=== PATIENT | male | born 1950 | race Caucasian/White ===

== ENCOUNTER 2018-09-18 14:13 | Inpatient (IN) | payer MEDICARE, OTHER ==
[2018-09-18 15:55] LABS: Hematocrit 39.8 % (42-50); Mean Cell Volume 106.7 fl (78-100); Mean Corpuscular Hemoglobin 37.5 pg (26-32); Mean Corpuscular Hgb Concent. 35.2 g/dl (32-36); Platelet Count 180 K/mm3 (150-450); Red Blood Count 3.73 M/mm3 (4.1-5.6); Red Cell Distribution Width 13.2 % (11.5-14.0); White Blood Count 7.4 K/mm3 (4.0-10.5)
[2018-09-18 16:03] LABS: INR 0.95 (0.8-3.0); PROTIME 10.7 SECONDS (8.83-12.87)
[2018-09-18 16:08] LABS: ALBUMIN 3.9 g/dL (3.5-5.0); ALKALINE PHOSPHATASE 111 U/L (38-126); ANION GAP 10.5 MEQ/L (5-15); BLOOD UREA NITROGEN 6 mg/dL (9-20); CHLORIDE 107 mmol/L (98-107); Calcium 9.4 mg/dL (8.4-10.2); Carbon Dioxide 24 mmol/L (22-30); Direct Bilirubin 0.3 mg/dL (0.0-0.4); Glucose 85 mg/dL (74-106); Potassium 3.9 mmol/L (3.5-5.1); SGOT/AST 28 U/L (17-59); SGPT/ALT 25 U/L (0-50); SODIUM 137 mmol/L (137-145); Total Protein 6.8 g/dL (6.3-8.2)
--- NOTE | 2018-09-18 16:18 | XRAY ---
Indication: Left leg weakness. Possible CVA. Multiple contiguous axial images obtained through the head without contrast. Comparison: None Age-appropriate global atrophy. No acute intracranial hemorrhage, abnormal extra-axial fluid collection, or mass effect. Fourth ventricle is midline without hydrocephalus. Cross-white matter differentiation preserved. Bony calvarium intact. Minimal opacification left ethmoid sinus. Remaining visualized paranasal sinuses and mastoid air cells are clear. Impression: 1. Minimal left ethmoid sinus disease. 2. Remaining CT head without contrast exam is negative. Follow-up CT or MRI may yield further information if there remains further clinical concern. CTDI 67.41
--- NOTE | 2018-09-18 16:20 | XRAY ---
Indication: Left leg weakness. Possible CVA. Comparison: None Portable chest demonstrates what appears to be a large focal eventration of the right hemidiaphragm which could be confirmed with lateral view chest or CT. Remaining heart and lungs normal. Bony thorax intact with old left 6-7 rib fractures.
[2018-09-18] MEDS ORDERED: Sodium Chloride 0.9% 1000 ML 1,000 ML IV SCH (16:45)
[2018-09-18] MEDS ORDERED: MEDICATION INTERVENTION MC SCH (17:15)
[2018-09-18] MEDS: Sodium Chloride 0.9% 1000 ML 1,000 ML IV SCH (17:23)
[2018-09-18 20:16] LABS: Appearance CLEAR (CLEAR); Bilirubin NEGATIVE (NEGATIVE); Blood NEGATIVE Ery/ul (0-5); Glucose NEGATIVE (NEGATIVE); Ketones NEGATIVE (NEGATIVE); Leukocyte Esterase NEGATIVE (NEGATIVE); Nitrite NEGATIVE (NEGATIVE); Protein,Urine Dip NEGATIVE (Negative); Specific Gravity 1.006 (1.005-1.025); Urobilinogen 4 mg/dL (0-1)
[2018-09-18] MEDS ORDERED: Neurontin 100 MG PO SCH (22:00)
[2018-09-18] MEDS: ISOPTIN S.R. 240 MG PO SCH (22:43)
[2018-09-18] MEDS: MOTRIN 400 MG PO SCH (22:43)
[2018-09-18] MEDS: Ambien 10 MG PO SCH (22:43)
[2018-09-18] MEDS: NEURONTIN 300 MG PO SCH (22:44)
[2018-09-18] MEDS: Klonopin 0.5 MG PO PRN (22:48)
[2018-09-19 05:14] LABS: BASOPHIL % 0.7 % (0.0-0.4); Basophil (Absolute #) 0.04 (0-0.4); Eosinophil % 2.1 % (0.00-5.0); Eosinophil (Absolute #) 0.12 (0-0.5); Granulocyte Absolute (ANC) 2.87 (1.4-6.9); Hemoglobin 14.3 gm/dl (12.5-18.0); Lymphocyte (Absolute #) 2.05 (1.0-4.6); Lymphocytes % 36.3 % (24.0-44.0); Mean Cell Volume 106.3 fl (78-100); Mean Corpuscular Hgb Concent. 36.7 g/dl (32-36); Mean Platelet Volume 10.1 fl (6-9.5); Monocyte (Absolute #) 0.56 (0.0-1.3); Monocytes % 9.9 % (0.0-12.0); Platelet Count 177 K/mm3 (150-450); Red Blood Count 3.67 M/mm3 (4.1-5.6); Red Cell Distribution Width 13.4 % (11.5-14.0); White Blood Count 5.6 K/mm3 (4.0-10.5)
[2018-09-19 05:20] LABS: Mean Corpuscular Hemoglobin 38.9 pg (26-32)
[2018-09-19 05:33] LABS: ALBUMIN 3.8 g/dL (3.5-5.0); ALKALINE PHOSPHATASE 109 U/L (38-126); ANION GAP 10.3 MEQ/L (5-15); BLOOD UREA NITROGEN 7 mg/dL (9-20); CHLORIDE 108 mmol/L (98-107); Calcium 9.3 mg/dL (8.4-10.2); Carbon Dioxide 26 mmol/L (22-30); Cholesterol 178 mg/dL (50-200); Creatinine 1 0.68 mg/dL (0.66-1.25); Glucose 94 mg/dL (74-106); HDL CHOLESTEROL 34 mg/dL (40-60); LDL, DIRECT 125 mg/dL (30-100); Potassium 3.6 mmol/L (3.5-5.1); Risk Ratio 5.2; SGOT/AST 24 U/L (17-59); SGPT/ALT 24 U/L (0-50); SODIUM 140 mmol/L (137-145); TRIGLYCERIDE 126 mg/dL (30-150); TROPONIN < 0.012 ng/mL (0.000-0.034); Total Protein 6.7 g/dL (6.3-8.2)
[2018-09-19 08:54] LABS: Slide Review 1 YES
[2018-09-19] MEDS: Protonix 40MG Tablet PO SCH (09:13)
[2018-09-19] MEDS: Mavik 2 MG PO SCH (09:13)
[2018-09-19] MEDS: ECOTRIN 81 MG PO SCH (09:13)
[2018-09-19] MEDS: MOTRIN 400 MG PO SCH ×3 (09:14→21:40)
[2018-09-19] MEDS: NEURONTIN 300 MG PO SCH ×3 (09:14→21:40)
[2018-09-19] MEDS ORDERED: BABY ASPIRIN 81 MG CHEW PO SCH (10:00)
[2018-09-19] MEDS ORDERED: TRANDOLAPRIL 4 MG PO SCH (10:00)
--- NOTE | 2018-09-19 11:54 | PCM.NOTE ---
Date and Time: 09/19/18 1152 Subjective Assessment: still weakness on left side of leg - Review of Systems Constitutional: No Fever, No Chills Eyes: No Symptoms Ears, Nose, & Throat: No Symptoms Respiratory: No Cough, No Short Of Breath Cardiac: No Chest Pain, No Edema, No Syncope Abdominal/Gastrointestinal: No Abdominal Pain, No Nausea, No Vomiting, No Diarrhea Genitourinary Symptoms: No Dysuria Musculoskeletal: No Back Pain, No Neck Pain Skin: No Rash Neurological: Gait Changes, No Dizziness, No Focal Weakness, No Sensory Changes Psychological: No Symptoms Endocrine: No Symptoms Hematologic/Lymphatic: No Symptoms Immunological/Allergic: No Symptoms Objective Exam General Appearance: no apparent distress, alert Neurologic Exam: alert, oriented x 3, cooperative, motor deficits, motor weakness, facial droop Skin Exam: normal color, warm, dry Wound Assessment: Skin/Wound Assessment Wound/Incision Assessment Start: 09/18/18 15: 53 Text: Status: Active Freq: Q6H Protocol: Document 09/19/18 08:00 CL (Rec: 09/19/18 09:44 CL [id number]) Wound/Incision Assessment Left Elbow Wound Assessment Admission Wound Type Abrasion Wound Stage Non Pressure Wound Drainage Amount None Drainage Odor None/Absent General Appearance Open to air Wound Bed Greatest Portion Red (Granulation) Wound Bed Lesser Portion Red (Granulation) Surrounding Tissue Dark Red Comment Diameter of wound measures 3 cm. Wound Photo Photo Taken Yes Date: 09/18/18 Time: 18:33 Distance from Wound: 8 inches Comment: photo placed on chart Eye Exam: PERRL, EOMI, eyes nml inspection Ears, Nose, Throat Exam: normal ENT inspection, pharynx normal, moist mucous membranes Neck Exam: normal inspection, non-tender, supple, full range of motion Respiratory Exam: normal breath sounds, lungs clear, No respiratory distress Cardiovascular Exam: regular rate/rhythm, normal heart sounds Gastrointestinal/Abdomen Exam: soft, No tenderness, No mass Extremity Exam: normal inspection, normal range of motion Back Exam: normal inspection, normal range of motion, No CVA tenderness, No vertebral tenderness Male Genitalia Exam: deferred Rectal Exam: deferred OBJECTIVE DATA Vital Signs: Vital Signs - 24 hr Temp Pulse Resp BP Pulse Ox 09/19/18 10:41 96 09/19/18 07:19 97.6 F 68 20 110/57 100 09/19/18 04:00 98.2 F 68 18 124/61 93 L 09/19/18 00:00 97.8 F 71 16 125/74 95 09/18/18 20:38 91 L 09/18/18 20:00 98.3 F 69 16 100/54 94 L 09/18/18 16:33 96 09/18/18 15:19 98.4 F 86 22 135/72 96 09/18/18 14:55 98.4 F 86 22 135/72 96 09/18/18 14:34 98.4 F 86 22 135/72 96 Pain Assessment - Last Documented Pain Intensity 7 Pain Scale Used 0-10 Pain Scale Intake and Output: Intake & Output 09/16/18 09/17/18 09/18/18 09/19/18 11:59 11:59 11:59 11:59 Intake Total 2059 Output Total 2160 Balance -101 Weight 93.5 kg Lab Results: Lab Results-Last 24 Hours 09/18/18 09/18/18 09/18/18 Range/Units 15:52 15:52 15:52 WBC 7.4 (4.0-10.5) K/mm3 RBC 3.73 L (4.1-5.6) M/mm3 Hgb 14.0 (12.5-18.0) gm/dl Hct 39.8 L (42-50) % MCV 106.7 H (78-100) fl MCH 37.5 H (26-32) pg MCHC 35.2 (32-36) g/dl RDW 13.2 (11.5-14.0) % Plt Count 180 (150-450) K/mm3 MPV 10.0 H (6-9.5) fl Gran % (36.0-66.0) % Eos # (Auto) (0-0.5) Absolute Lymphs (auto) (1.0-4.6) Absolute Monos (auto) (0.0-1.3) Lymphocytes % (24.0-44.0) % Monocytes % (0.0-12.0) % Eosinophils % (0.00-5.0) % Basophils % (0.0-0.4) % Absolute Granulocytes (1.4-6.9) Basophils # (0-0.4) PT 10.7 (8.83-12.87) SECONDS INR 0.95 (0.8-3.0) Sodium 137 (137-145) mmol/L Potassium 3.9 (3.5-5.1) mmol/L Chloride 107 (98-107) mmol/L Carbon Dioxide 24 (22-30) mmol/L Anion Gap 10.5 (5-15) MEQ/L BUN 6 L (9-20) mg/dL Creatinine 0.60 L (0.66-1.25) mg/dL Estimated GFR > 60.0 ML/MIN Glucose 85 (74-106) mg/dL Calcium 9.4 (8.4-10.2) mg/dL Total Bilirubin 0.60 (0.2-1.3) mg/dL Direct Bilirubin 0.3 (0.0-0.4) mg/dL AST 28 (17-59) U/L ALT 25 (0-50) U/L Alkaline Phosphatase 111 (38-126) U/L Troponin I (0.000-0.034) ng/mL Serum Total Protein 6.8 (6.3-8.2) g/dL Albumin 3.9 (3.5-5.0) g/dL Triglycerides (30-150) mg/dL Cholesterol (50-200) mg/dL LDL Cholesterol (30-100) mg/dL HDL Cholesterol (40-60) mg/dL Heart Disease Risk Ratio Urine Color (YELLOW) Urine Appearance (CLEAR) Urine pH (5-6) Ur Specific [place] (1.005-1.025) Urine Protein (Negative) Urine Ketones (NEGATIVE) Urine Blood (0-5) [place]/ul Urine Nitrite (NEGATIVE) Urine Bilirubin (NEGATIVE) Urine Urobilinogen (0-1) mg/dL Ur Leukocyte Esterase (NEGATIVE) Urine WBC (Auto) (0-5) /HPF Urine RBC (Auto) (0-2) /HPF U Epithel Cells (Auto) (FEW) /HPF Urine Bacteria (Auto) (NEGATIVE) /HPF Urine Glucose (NEGATIVE) mg/dL Slides for Path Review 09/18/18 09/19/18 09/19/18 Range/Units 19:10 05:07 05:07 WBC 5.6 (4.0-10.5) K/mm3 RBC 3.67 L (4.1-5.6) M/mm3 Hgb 14.3 (12.5-18.0) gm/dl Hct 39.0 L (42-50) % MCV 106.3 H (78-100) fl MCH 38.9 H (26-32) pg MCHC 36.7 H (32-36) g/dl RDW 13.4 (11.5-14.0) % Plt Count 177 (150-450) K/mm3 MPV 10.1 H (6-9.5) fl Gran % 51.0 (36.0-66.0) % Eos # (Auto) 0.12 (0-0.5) Absolute Lymphs (auto) 2.05 (1.0-4.6) Absolute Monos (auto) 0.56 (0.0-1.3) Lymphocytes % 36.3 (24.0-44.0) % Monocytes % 9.9 (0.0-12.0) % Eosinophils % 2.1 (0.00-5.0) % Basophils % 0.7 (0.0-0.4) % Absolute Granulocytes 2.87 (1.4-6.9) Basophils # 0.04 (0-0.4) PT (8.83-12.87) SECONDS INR (0.8-3.0) Sodium 140 (137-145) mmol/L Potassium 3.6 (3.5-5.1) mmol/L Chloride 108 H (98-107) mmol/L Carbon Dioxide 26 (22-30) mmol/L Anion Gap 10.3 (5-15) MEQ/L BUN 7 L (9-20) mg/dL Creatinine 0.68 (0.66-1.25) mg/dL Estimated GFR > 60.0 ML/MIN Glucose 94 (74-106) mg/dL Calcium 9.3 (8.4-10.2) mg/dL Total Bilirubin 0.50 (0.2-1.3) mg/dL Direct Bilirubin (0.0-0.4) mg/dL AST 24 (17-59) U/L ALT 24 (0-50) U/L Alkaline Phosphatase 109 (38-126) U/L Troponin I < 0.012 (0.000-0.034) ng/mL Serum Total Protein 6.7 (6.3-8.2) g/dL Albumin 3.8 (3.5-5.0) g/dL Triglycerides 126 (30-150) mg/dL Cholesterol 178 (50-200) mg/dL LDL Cholesterol 125 H (30-100) mg/dL HDL Cholesterol 34 L (40-60) mg/dL Heart Disease Risk Ratio 5.2 Urine Color YELLOW (YELLOW) Urine Appearance CLEAR (CLEAR) Urine pH 6.0 (5-6) Ur Specific [place] 1.006 (1.005-1.025) Urine Protein NEGATIVE (Negative) Urine Ketones NEGATIVE (NEGATIVE) Urine Blood NEGATIVE (0-5) [place]/ul Urine Nitrite NEGATIVE (NEGATIVE) Urine Bilirubin NEGATIVE (NEGATIVE) Urine Urobilinogen 4 (0-1) mg/dL Ur Leukocyte Esterase NEGATIVE (NEGATIVE) Urine WBC (Auto) NONE (0-5) /HPF Urine RBC (Auto) NONE (0-2) /HPF U Epithel Cells (Auto) NONE (FEW) /HPF Urine Bacteria (Auto) NONE (NEGATIVE) /HPF Urine Glucose NEGATIVE (NEGATIVE) mg/dL Slides for Path Review YES Radiology Exams: Radiology Procedures Category Date Time Status CHEST 1 VIEW (PORTABLE) Urgent Exams 09/18/18 15:40 Completed HEAD WITHOUT CONTRAST [CT] Urgent Exams 09/18/18 15:36 Completed Assessment/Plan (1) Left-sided weakness Current Visit: Yes Status: Acute Code(s): R53.1 - WEAKNESS (2) COPD (chronic obstructive pulmonary disease) Current Visit: Yes Status: Chronic Qualifiers: Emphysema type: unspecified (3) HTN (hypertension) Current Visit: Yes Status: Chronic Qualifiers: Hypertension type: essential hypertension Qualified Code(s): I10 - Essential (primary) hypertension Code(s): I10 - ESSENTIAL (PRIMARY) HYPERTENSION (4) CAD (coronary artery disease) Current Visit: Yes Status: Acute Qualifiers: Coronary Disease-Associated Artery/Lesion type: [place] artery [place] vs. transplanted heart: [place] heart Associated angina: without angina Qualified Code(s): I25.10 - Atherosclerotic heart disease of [place] coronary artery without angina pectoris Code(s): I25.10 - ATHSCL HEART DISEASE OF [place] CORONARY ARTERY W/O ANG PCTRS (5) Stroke Current Visit: Yes Status: Acute Code(s): I63.9 - CEREBRAL INFARCTION, UNSPECIFIED
[2018-09-19] MEDS: Sodium Chloride 0.9% 1000 ML 1,000 ML IV SCH (13:21)
[2018-09-19] MEDS: Nicoderm CQ 21 MG TOP SCH (17:12)
[2018-09-19] MEDS: Cyclobenzaprine 10 MG PO SCH (21:39)
[2018-09-19] MEDS: PATIENT OWN MEDICATION PO SCH (21:40)
[2018-09-19] MEDS: Ambien 10 MG PO SCH (21:40)
[2018-09-19] MEDS: ISOPTIN S.R. 240 MG PO SCH (21:41)
[2018-09-20] MEDS: Mavik 2 MG PO SCH (08:30)
[2018-09-20] MEDS: Protonix 40MG Tablet PO SCH (08:30)
[2018-09-20] MEDS: ECOTRIN 81 MG PO SCH (08:30)
[2018-09-20] MEDS: MOTRIN 400 MG PO SCH ×3 (08:30→21:43)
[2018-09-20] MEDS: Cyclobenzaprine 10 MG PO SCH ×3 (08:30→21:44)
[2018-09-20] MEDS: NEURONTIN 300 MG PO SCH ×3 (08:31→21:44)
[2018-09-20] MEDS: PATIENT OWN MEDICATION PO SCH ×2 (08:31→21:44)
[2018-09-20] MEDS: Sodium Chloride 0.9% 1000 ML 1,000 ML IV SCH (09:42)
--- NOTE | 2018-09-20 11:38 | PCM.NOTE ---
Date and Time: 09/20/18 1133 Subjective Assessment: Pt thinks weakness on the L leg is improving somewhat. His BP have been 96-160/ 57-82. He would like his R elbow wrapped, he got a laceration/abrasion when he fell in his driveway. - Review of Systems Constitutional: No Fever Neurological: Other (unilateral weakness) Objective Exam General Appearance: no apparent distress, alert Neurologic Exam: oriented x 3, cooperative, other (RLE 5/5 dorsiflexion, LLE 4/ 5 dorsiflexion. Bilat 5/5 plantar flexion.) Skin Exam: normal color, warm, dry, No rash Wound Assessment: Skin/Wound Assessment Wound/Incision Assessment Start: 09/18/18 15: 53 Text: Status: Active Freq: Q6H Protocol: Document 09/20/18 08:00 CL (Rec: 09/20/18 09:01 CL [id number]) Wound/Incision Assessment Left Elbow Wound Assessment Shift Assessment Wound Type Abrasion Wound Stage Non Pressure Wound Drainage Amount None Drainage Odor None/Absent General Appearance Open to air Wound Bed Greatest Portion Red (Granulation) Wound Bed Lesser Portion Red (Granulation) Surrounding Tissue Dark Red Comment Diameter of wound measures 3 cm. Wound Photo Photo Taken Yes Date: 09/18/18 Time: 18:33 Distance from Wound: 8 inches Comment: photo placed on chart Eye Exam: eyes nml inspection Ears, Nose, Throat Exam: moist mucous membranes Respiratory Exam: normal breath sounds, lungs clear, No crackles/rales, No rhonchi, No wheezing Cardiovascular Exam: regular rate/rhythm, normal heart sounds, No murmur Gastrointestinal/Abdomen Exam: soft, normal bowel sounds, No tenderness Extremity Exam: other (R elbow with approx 2x3cm defect, no erythema/exudate/ induration) OBJECTIVE DATA Vital Signs: Vital Signs - 24 hr Temp Pulse Resp BP Pulse Ox 09/20/18 07:30 97.2 F 53 L 20 149/70 98 09/20/18 07:10 96 09/20/18 04:00 97.8 F 52 L 16 137/79 95 09/20/18 00:00 97.6 F 46 L 16 134/61 98 09/19/18 20:37 94 L 09/19/18 20:00 97.9 F 52 L 18 96/56 96 09/19/18 16:53 98 F 63 20 160/82 96 09/19/18 12:00 97.6 F 68 110/57 96 Pain Assessment - Last Documented Pain Intensity 4 Pain Scale Used 0-10 Pain Scale Intake and Output: Intake & Output 09/17/18 09/18/18 09/19/18 09/20/18 11:59 11:59 11:59 11:59 Intake Total 2059 1856 Output Total 2160 3725 Balance -101 -1869 Weight 93.5 kg Radiology Exams: Radiology Procedures Category Date Time Status CHEST 1 VIEW (PORTABLE) Urgent Exams 09/18/18 15:40 Completed HEAD WITHOUT CONTRAST [CT] Urgent Exams 09/18/18 15:36 Completed Multi-Disciplinary Progress Notes: Multi-Disciplinary Progress Notes 09/19/18 13:35 Case Management Note by Amira Lemon PAPERWORK COMPLETE AND PLACED ON CHART. REFERRAL CALLED TO [facility], SPOKE WITH [facility]. [facility] REPORTS THAT THEY WILL CALL BACK WITH BED AVAILABILITY. Initialized on 09/19/18 13:35 - END OF NOTE Assessment/Plan (1) Left-sided weakness Current Visit: Yes Status: Acute Assessment & Plan: He is being discharged to LTCF tomorrow. Stable. Code(s): R53.1 - WEAKNESS (2) CAD (coronary artery disease) Current Visit: Yes Status: Acute Qualifiers: Coronary Disease-Associated Artery/Lesion type: [place] artery [place] vs. transplanted heart: [place] heart Associated angina: without angina Qualified Code(s): I25.10 - Atherosclerotic heart disease of [place] coronary artery without angina pectoris Code(s): I25.10 - ATHSCL HEART DISEASE OF [place] CORONARY ARTERY W/O ANG PCTRS (3) Stroke Current Visit: Yes Status: Acute Code(s): I63.9 - CEREBRAL INFARCTION, UNSPECIFIED (4) COPD (chronic obstructive pulmonary disease) Current Visit: Yes Status: Chronic Qualifiers: Emphysema type: unspecified (5) HTN (hypertension) Current Visit: Yes Status: Chronic Qualifiers: Hypertension type: essential hypertension Qualified Code(s): I10 - Essential (primary) hypertension Assessment & Plan: labile; will continue to observe. Code(s): I10 - ESSENTIAL (PRIMARY) HYPERTENSION (6) Abrasion, elbow w/o infection Current Visit: Yes Status: Acute Assessment & Plan: abx cream and wrap Code(s): S50.319A - ABRASION OF UNSPECIFIED ELBOW, INITIAL ENCOUNTER
[2018-09-20] MEDS ORDERED: Triple Antibiotic Ointment TP PRN (15:30)
[2018-09-20] MEDS: Nicoderm CQ 21 MG TOP SCH (16:43)
[2018-09-20] MEDS: Ambien 10 MG PO SCH (21:44)
[2018-09-20] MEDS: ISOPTIN S.R. 240 MG PO SCH (21:44)
[2018-09-21] MEDS: Klonopin 0.5 MG PO PRN (03:18)
[2018-09-21] MEDS: Protonix 40MG Tablet PO SCH (09:33)
[2018-09-21] MEDS: PATIENT OWN MEDICATION PO SCH (09:33)
[2018-09-21] MEDS: NEURONTIN 300 MG PO SCH (09:33)
[2018-09-21] MEDS: MOTRIN 400 MG PO SCH (09:33)
[2018-09-21] MEDS: Mavik 2 MG PO SCH (09:33)
[2018-09-21] MEDS: ECOTRIN 81 MG PO SCH (09:33)
[2018-09-21] MEDS: Cyclobenzaprine 10 MG PO SCH (09:34)
[2018-09-21 11:57] VITALS: BP 171/77; PULSE 53; O2SAT 95
--- NOTE | 2018-09-21 12:46 | PCM.DS ---
Discharge Summary Date of Admission: 09/18/18 14:34 Admitting Physician: DIMAS TINEO Consults: Consults on Case 09/18/18 16:41 Consult Neurology ROUTINE Primary Care Provider: DIMAS TINEO Allergies Allergies No Known Drug Allergies Allergy (Unverified 09/18/18 19:42) Hospital Summary - Hospital Course Hospital Course: Pt is a 68 yo male pt with CAD, hx CVA, COPD, and HTN who was directly admitted by Dr. Tineo for L sided weakness. He has improved somewhat but is going to [facility] today for therapy. On admission his CMP was unremarkable. Chol 178, HDL 34, LDL 125. He had 1 troponin on day #[address] head without acute changes. CXR showed what appeared to be a large focal eventration of the R hemidiaphragm and old L 6 -7 rib fx. His only complaints today are his chronic neck and lower back pain. - Vitals & Intake/Output Vital Signs: Vital Signs Temperature 98.4 F 09/21/18 11:56 Pulse Rate 53 L 09/21/18 11:56 Respiratory Rate 18 09/21/18 11:56 Blood Pressure 171/77 09/21/18 11:56 O2 Sat by Pulse Oximetry 95 09/21/18 11:56 Intake & Output: Intake & Output 09/19/18 09/20/18 09/21/18 09/22/18 11:59 11:59 11:59 11:59 Intake Total 2059 1856 3770 Output Total 2160 3725 5450 Balance -177 -7965 -9968 Weight 93.5 kg - Lab Result Diagrams: 09/19/18 05:07 09/19/18 05:07 - Procedures and Test Procedures and Tests throughout Hospitalization: Therapy Orders & Screens 09/18/18 15:36 EKG ROUTINE Comment: Diagnosis: CVA, L SIDED WEAKNESS Oxygen Nasal Cannula 2 lpm Comment: Diagnosis: CVA, L SIDED WEAKNESS Discharge Exam General Appearance: no apparent distress (sitting up on edge of bed), alert Neurologic Exam: oriented x 3, cooperative Eye Exam: eyes nml inspection Ears, Nose, Throat Exam: moist mucous membranes Neck Exam: normal inspection Respiratory Exam: normal breath sounds, lungs clear, No crackles/rales, No rhonchi, No wheezing Cardiovascular Exam: regular rate/rhythm, normal heart sounds, No murmur Gastrointestinal/Abdomen Exam: soft, normal bowel sounds, No tenderness, No distention, No mass, No guarding, No rebound Extremity Exam: normal inspection, No pedal edema, No swelling Skin Exam: normal color, warm, dry, No rash Wound Assessment: Skin/Wound Assessment Wound/Incision Assessment Start: 09/18/18 15: 53 Text: Status: Active Freq: Q6H Protocol: Document 09/21/18 08:00 CL (Rec: 09/21/18 08:06 CL [id number]) Wound/Incision Assessment Left Elbow Wound Assessment Shift Assessment Wound Type Abrasion Wound Stage Non Pressure Wound Drainage Amount None Drainage Odor None/Absent General Appearance Open to air Wound Bed Greatest Portion Red (Granulation) Wound Bed Lesser Portion Red (Granulation) Surrounding Tissue Dark Red Comment Diameter of wound measures 3 cm. Wound Photo Photo Taken Yes Date: 09/18/18 Time: 18:33 Distance from Wound: 8 inches Comment: photo placed on chart Final Diagnosis/Problem List - Final Discharge Diagnosis/Problem (1) Left-sided weakness Current Visit: Yes Status: Acute Assessment & Plan: mild improvements, still showing some deficit per my exam yesterday ( dorsiflexion). To [facility] for therapy. Dr. Tineo doesn't delineate in his note but I imagine he was suspecting a CVA affecting the strength in the L leg. Code(s): R53.1 - WEAKNESS (2) CAD (coronary artery disease) Current Visit: Yes Status: Chronic Code(s): I25.10 - ATHSCL HEART DISEASE OF [place] CORONARY ARTERY W/O ANG PCTRS (3) Stroke Current Visit: Yes Status: Chronic Code(s): I63.9 - CEREBRAL INFARCTION, UNSPECIFIED (4) COPD (chronic obstructive pulmonary disease) Current Visit: Yes Status: Chronic (5) HTN (hypertension) Current Visit: Yes Status: Chronic Assessment & Plan: BP have been labile; in the last 24h from 110-168 systolic/54-90. Code(s): I10 - ESSENTIAL (PRIMARY) HYPERTENSION (6) Abrasion, elbow w/o infection Current Visit: Yes Status: Acute Assessment & Plan: hurt in a fall prior to admission. started dressing it yesterday. Code(s): S50.319A - ABRASION OF UNSPECIFIED ELBOW, INITIAL ENCOUNTER - Discharge Disposition: DC TO [facility] Condition: Stable Prescriptions: New Neomycin/Bacitracin/Polymyxinb [Antibiotic Ointment] 28 gm TP BID #1 oint...g. Cyclobenzaprine HCl 10 mg [Cyclobenzaprine 10 MG] 5 mg PO TID tablet Nicotine 21 mg [Nicoderm CQ 21 MG] 21 mg TOP Q24H patch Continue Zolpidem Tartrate 10 mg PO QHS Verapamil HCl [Verapamil ER] 240 mg PO QHS Trandolapril 4 mg PO DAILY Omeprazole 20 mg PO DAILY Ibuprofen 800 mg PO TID Gabapentin 300 mg PO TID Duloxetine HCl 20 mg PO BID Clonazepam 0.5 mg [Klonopin 0.5 MG] 0.5 mg PO TID PRN Aspirin 81 gm Chew [Baby Aspirin 81 mg Chew] 81 mg PO DAILY Follow up with: DIMAS TINEO MD [Primary Care Provider] - 1 Week
== END 2018-09-21 13:55 | DRG 69 ==
LOC: MED SURG 14:34
PROVIDERS: ADMIT General Practice; ATTEND General Practice
DX: I67.89 Other cerebrovascular disease (principal); R53.1 Weakness; I10 Essential (primary) hypertension; J44.9 Chronic obstructive pulmonary disease, unspecified; I25.10 Atherosclerotic heart disease of native coronary artery without angina pectoris; S50.312A Abrasion of left elbow, initial encounter; E78.5 Hyperlipidemia, unspecified; R29.6 Repeated falls; M79.605 Pain in left leg; G89.29 Other chronic pain; M54.5 Low back pain; M54.2 Cervicalgia; E03.9 Hypothyroidism, unspecified; W19.XXXA Unspecified fall, initial encounter; Y93.9 Activity, unspecified; Y92.008 Other place in unspecified non-institutional (private) residence as the place of occurrence of the external cause; Z79.899 Other long term (current) drug therapy
CPT/HCPCS: 36415; 70450; 71045; 80048; 80053; 80061; 80076; 81001; 83721; 84484; 85025; 85027; 85610; 93005; 94760; 94762; Q3014; A9270-GY

== ENCOUNTER 2018-10-22 12:29 | Emergency (ER) | payer MEDICARE, OTHER ==
[2018-10-22] MEDS ORDERED: MORPHINE SULFATE 4 MG INJ IV ONE (12:46)
--- NOTE | 2018-10-22 12:49 | ERPHSYRPT ---
- History of Present Illness Time Seen by Provider: 10/22/18 12:40 Source: patient, family Exam Limitations: no limitations Physician History: Patient was admitted to the hospital and placed in a snf facility last month. He went home two weeks ago and has had increasing falls over the past two days. He did improve some with the PT he received at the snf facility. Timing/Duration: week(s) (1) Severity: moderate Character of Deficits: general (difuse) Deficits: falling, decrease ability to walk Baseline/Normal Cognition: alert oriented x 3 Current Cognition: alert oriented x 3 Baseline Gait: uses cane, uses walker Associated Symptoms: trouble walking (patient has had problems with strength in his left leg at least one month), No confusion, No fatigue, No fever, No chills , No loss of consciousness, No nausea, No vomiting, No weakness, No insomnia, No muscle spasms, No numbness/tingling in legs/feet, No paresthesia, No seizures , No slurred speech, No vision changes, No chest pain, No headache Allergies/Adverse Reactions: No Known Drug Allergies Allergy (Verified 10/22/18 13:07) Home Medications: Clonazepam 0.5 mg [Klonopin 0.5 MG] 0.5 mg PO TID PRN 09/18/18 [History] Gabapentin 300 mg PO TID 09/18/18 [History] Ibuprofen 800 mg PO TID 09/18/18 [History] Omeprazole 20 mg PO DAILY 09/18/18 [History] Trandolapril 4 mg PO DAILY 09/18/18 [History] Verapamil HCl [Verapamil ER] 240 mg PO QHS 09/18/18 [History] Zolpidem Tartrate 10 mg PO QHS 09/18/18 [History] - Review of Systems Constitutional: Weakness, No Fever, No Chills Eyes: No Photophobia, No Vision Changes Ears, Nose, & Throat: No Nose Congestion, No Throat Pain, No Throat Swelling, No Hoarse Respiratory: No Cough, No Dyspnea, No Dyspnea on Exertion (COOK) Cardiac: No Chest Pain, No Edema, No Syncope Abdominal/Gastrointestinal: No Abdominal Pain, No Nausea, No Vomiting, No Diarrhea, No Hematemesis, No Hematochezia, No Melena Genitourinary Symptoms: No Dysuria, No Hematuria, No Flank Pain Musculoskeletal: Neck Pain (causing him severe pain over the past two days), No Back Pain Skin: No Rash Neurological: No Dizziness, No Focal Weakness, No Headache, No Sensory Changes, No Tremors Psychological: No Symptoms Endocrine: No Symptoms All Other Systems: Reviewed and Negative - Past Medical History Neurological History: Stroke (one month ago with left leg weakness) ENT History: Cataracts Cardiac History: Hypertension Respiratory History: Bronchitis, COPD Endocrine Medical History: No Pertinent History Musculoskeletal History: Degenerative Disk Disease, Fractures, Osteoarthritis GI Medical History: No Pertinent History History: Other Psycho-Social History: Anxiety, Depression Male Reproductive Disorders: No Pertinent History Other Medical History: overactive bladder, functional incontinence; R arm fracture about 55 years ago - Past Surgical History Past Surgical History: Yes Neuro Surgical History: No Pertinent History Cardiac: No Pertinent History Respiratory: No Pertinent History Gastrointestinal: No Pertinent History Genitourinary: No Pertinent History Musculoskeletal: Other Male Surgical History: No Pertinent History Other Surgical History: Lumbar surgery 1999, 2 cysts removed from back - Social History Smoking Status: Current every day smoker How long have you smoked: 25 years Exposure to second hand smoke: Yes Drug Use: none - Nursing Vital Signs Nursing Vital Signs: Initial Vital Signs Temperature 98.4 F 10/22/18 12:39 Pulse Rate 72 10/22/18 12:39 Respiratory Rate 16 10/22/18 12:39 Blood Pressure 113/68 10/22/18 12:39 O2 Sat by Pulse Oximetry 96 10/22/18 12:39 Pain Scale Pain Intensity 6 - [place] Coma Scale Best Eye Response (Rafiq): (4) open spontaneously Best Verbal Response (Rafiq): (5) oriented Best Motor Response ([place]): (6) obeys commands [place] Total: 15 - Physical Exam General Appearance: no apparent distress, alert Eye Exam: bilateral eye: PERRL, EOMI Ears, Nose, Throat Exam: normal ENT inspection, moist mucous membranes Neck Exam: normal inspection, non-tender, supple Respiratory: normal breath sounds, lungs clear, airway intact, No respiratory distress Cardiovascular: regular rate/rhythm, normal heart sounds, normal peripheral pulses, capillary refill <2 sec, No edema Gastrointestinal: soft, normal bowel sounds, No tenderness, No distention, No rebound, No hernia Back Exam: normal inspection, No CVA tenderness, No vertebral tenderness Extremity Exam: normal inspection, No pedal edema Mental Status: alert, oriented x 3 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 Exam: normal hearing, normal speech, PERRL, tongue midline Coordination/Gait: normal finger to nose, normal cerebellar function, No ABN nose to finger (R), No ABN nose to finger (L) Motor/Sensory: no motor deficit, no sensory deficit Skin Exam: normal color, warm, dry, No rash - Course Nursing assessment & vital signs reviewed: Yes EKG Interpreted by Me: RATE (70), NORMAL AXIS, NORMAL INTERVALS, NORMAL QRS, NORMAL ST-T, Other (negative for any changes from 09/18/2018) - Radiology Exams Chest X-ray Interpretation: No Pneumonia, No Pneumothorax, Nml Alignment, Other (pper radiologist interpretation: No infiltrates to suggest focal pneumonia or other cardiopulmonary disease is seen.mild mid thoracic dextroscoliosis is seen. Degenerative changes are seen throughout the thoracic spine. Moderate focal eventration/elevation of the torso right hemidiaphragm resenting no change.) C-Spine X-ray Interpretation: No Fracture (per radiologist interpretation: No traumatic subluxation or acute cervical spine fracture; 2.5 mm anterior subluxation of C3 over C4 and 2 mm anterior subluxation of C4 over C5 her likely degenerative in nature. Degenerative osteoarthritic changes are seen within the cervical spine. Mild curvature in the midcervical spine toward the right on the AP image , consider spasm.), Other Ordered Tests: Active Orders 24 hr Category Date Time Status Analytics Leader STAT Care 10/22/18 12:45 Active EKG-ER Only STAT Care 10/22/18 13:50 Active IV Insertion STAT Care 10/22/18 12:45 Active Pulse Oximetry (ED) STAT Care 10/22/18 12:45 Active CERVICAL SPINE (2 OR 3 VIEW) Stat Exams 10/22/18 12:46 Completed CHEST 1 VIEW (PORTABLE) Stat Exams 10/22/18 12:45 Completed BLOOD CULTURE Stat Lab 10/22/18 14:00 Received CBC W DIFF Stat Lab 10/22/18 13:45 Completed CMP Stat Lab 10/22/18 13:45 Completed CULTURE,URINE Stat Lab 10/22/18 Received Lactic Acid Stat Lab 10/22/18 13:45 Completed PROTIME WITH INR Stat Lab 10/22/18 13:45 Completed PTT Stat Lab 10/22/18 13:45 Completed TROPONIN Q3H Lab 10/22/18 14:00 Completed TROPONIN Q3H Lab 10/22/18 17:00 Ordered TROPONIN Q3H Lab 10/22/18 20:00 Ordered TROPONIN Q3H Lab 10/22/18 23:00 Ordered TROPONIN Q3H Lab 10/23/18 02:00 Ordered Urinalysis with Microscopy Stat Lab 10/22/18 14:05 Completed VENOUS BLOOD GAS Urgent Lab 10/22/18 13:50 Completed Medication Summary Discontinued Medications Generic Name Dose Route Start Last Admin Trade Name Lewis PRN Reason Stop Dose Admin Morphine Sulfate 4 mg 10/22/18 12:46 10/22/18 13:48 Morphine Sulfate 4 Mg Inj IV 10/22/18 12:47 4 mg STAT ONE Administration Morphine Sulfate Confirm 10/22/18 13:43 Morphine Sulfate 4 Mg Inj Administered 10/22/18 13:44 Dose 4 mg .ROUTE .STiPosi-MED ONE Lab/Rad Data: Laboratory Result Diagrams 10/22/18 13:45 10/22/18 13:45 Laboratory Results 10/22/18 10/22/18 10/22/18 Range/Units 14:05 14:00 13:50 WBC (4.0-10.5) K/mm3 RBC (4.1-5.6) M/mm3 Hgb (12.5-18.0) gm/dl Hct (42-50) % MCV (78-100) fl MCH (26-32) pg MCHC (32-36) g/dl RDW (11.5-14.0) % Plt Count (150-450) K/mm3 MPV (6-9.5) fl Gran % (36.0-66.0) % Eos # (Auto) (0-0.5) Absolute Lymphs (auto) (1.0-4.6) Absolute Monos (auto) (0.0-1.3) Lymphocytes % (24.0-44.0) % Monocytes % (0.0-12.0) % Eosinophils % (0.00-5.0) % Basophils % (0.0-0.4) % Absolute Granulocytes (1.4-6.9) Basophils # (0-0.4) PT (8.83-12.87) SECONDS INR (0.8-3.0) APTT (24.1-36.1) SECONDS pO2/FiO2 Ratio 21.0 % VBG pH 7.41 (7.32-7.42) VBG pCO2 at Pat Temp 40 L (42-55) mm/Hg VBG pO2 at Pat Temp 24 L (25-40) mm/Hg VBG HCO3 25.4 (22-28) meq/L VBG O2 Sat ([place]) 53.3 L (95-100) VBG Base Excess 0.7 (-2.0-2.0) VBG Hemoglobin 14.3 VBG Carboxyhemoglobin 4.8 (0.0-6.9) % T HGB POC Potassium 3.9 (3.5-5.1) Sodium (137-145) mmol/L Potassium (3.5-5.1) mmol/L Chloride (98-107) mmol/L Carbon Dioxide (22-30) mmol/L Anion Gap (5-15) MEQ/L BUN (9-20) mg/dL Creatinine (0.66-1.25) mg/dL Estimated GFR ML/MIN Glucose (74-106) mg/dL Lactic Acid (0.4-2.0) Calcium (8.4-10.2) mg/dL Total Bilirubin (0.2-1.3) mg/dL AST (17-59) U/L ALT (0-50) U/L Alkaline Phosphatase (38-126) U/L Troponin I < 0.012 (0.000-0.034) ng/mL Serum Total Protein (6.3-8.2) g/dL Albumin (3.5-5.0) g/dL Urine Color YELLOW (YELLOW) Urine Appearance CLEAR (CLEAR) Urine pH 6.0 (5-6) Ur Specific [place] 1.008 (1.005-1.025) Urine Protein NEGATIVE (Negative) Urine Ketones NEGATIVE (NEGATIVE) Urine Blood NEGATIVE (0-5) Benito/ul Urine Nitrite NEGATIVE (NEGATIVE) Urine Bilirubin NEGATIVE (NEGATIVE) Urine Urobilinogen 2 (0-1) mg/dL Ur Leukocyte Esterase NEGATIVE (NEGATIVE) Urine WBC (Auto) NONE (0-5) /HPF Urine RBC (Auto) NONE (0-2) /HPF U Epithel Cells (Auto) NONE (FEW) /HPF Urine Bacteria (Auto) NONE (NEGATIVE) /HPF Urine Mucus (Auto) SLIGHT (NEGATIVE) /HPF Urine Glucose NEGATIVE (NEGATIVE) mg/dL 10/22/18 10/22/18 10/22/18 Range/Units 13:45 13:45 13:45 WBC 12.5 H (4.0-10.5) K/mm3 RBC 3.67 L (4.1-5.6) M/mm3 Hgb 13.4 (12.5-18.0) gm/dl Hct 39.5 L (42-50) % MCV 107.6 H (78-100) fl MCH 36.5 H (26-32) pg MCHC 33.9 (32-36) g/dl RDW 12.6 (11.5-14.0) % Plt Count 160 (150-450) K/mm3 MPV 9.8 H (6-9.5) fl Gran % 83.2 H (36.0-66.0) % Eos # (Auto) 0.04 (0-0.5) Absolute Lymphs (auto) 1.08 (1.0-4.6) Absolute Monos (auto) 0.94 (0.0-1.3) Lymphocytes % 8.6 L (24.0-44.0) % Monocytes % 7.5 (0.0-12.0) % Eosinophils % 0.3 (0.00-5.0) % Basophils % 0.4 (0.0-0.4) % Absolute Granulocytes 10.40 H (1.4-6.9) Basophils # 0.05 (0-0.4) PT 11.7 (8.83-12.87) SECONDS INR 1.03 (0.8-3.0) APTT 27.8 (24.1-36.1) SECONDS pO2/FiO2 Ratio % VBG pH (7.32-7.42) VBG pCO2 at Pat Temp (42-55) mm/Hg VBG pO2 at Pat Temp (25-40) mm/Hg VBG HCO3 (22-28) meq/L VBG O2 Sat ([place]) (95-100) VBG Base Excess (-2.0-2.0) VBG Hemoglobin VBG Carboxyhemoglobin (0.0-6.9) % T HGB POC Potassium (3.5-5.1) Sodium 137 (137-145) mmol/L Potassium 4.0 (3.5-5.1) mmol/L Chloride 103 (98-107) mmol/L Carbon Dioxide 26 (22-30) mmol/L Anion Gap 12.5 (5-15) MEQ/L BUN 9 (9-20) mg/dL Creatinine 0.70 (0.66-1.25) mg/dL Estimated GFR > 60.0 ML/MIN Glucose 116 H (74-106) mg/dL Lactic Acid (0.4-2.0) Calcium 9.2 (8.4-10.2) mg/dL Total Bilirubin 0.70 (0.2-1.3) mg/dL AST 19 (17-59) U/L ALT 18 (0-50) U/L Alkaline Phosphatase 114 (38-126) U/L Troponin I (0.000-0.034) ng/mL Serum Total Protein 7.3 (6.3-8.2) g/dL Albumin 4.1 (3.5-5.0) g/dL Urine Color (YELLOW) Urine Appearance (CLEAR) Urine pH (5-6) Ur Specific [place] (1.005-1.025) Urine Protein (Negative) Urine Ketones (NEGATIVE) Urine Blood (0-5) Benito/ul Urine Nitrite (NEGATIVE) Urine Bilirubin (NEGATIVE) Urine Urobilinogen (0-1) mg/dL Ur Leukocyte Esterase (NEGATIVE) Urine WBC (Auto) (0-5) /HPF Urine RBC (Auto) (0-2) /HPF U Epithel Cells (Auto) (FEW) /HPF Urine Bacteria (Auto) (NEGATIVE) /HPF Urine Mucus (Auto) (NEGATIVE) /HPF Urine Glucose (NEGATIVE) mg/dL 10/22/18 Range/Units 13:45 WBC (4.0-10.5) K/mm3 RBC (4.1-5.6) M/mm3 Hgb (12.5-18.0) gm/dl Hct (42-50) % MCV (78-100) fl MCH (26-32) pg MCHC (32-36) g/dl RDW (11.5-14.0) % Plt Count (150-450) K/mm3 MPV (6-9.5) fl Gran % (36.0-66.0) % Eos # (Auto) (0-0.5) Absolute Lymphs (auto) (1.0-4.6) Absolute Monos (auto) (0.0-1.3) Lymphocytes % (24.0-44.0) % Monocytes % (0.0-12.0) % Eosinophils % (0.00-5.0) % Basophils % (0.0-0.4) % Absolute Granulocytes (1.4-6.9) Basophils # (0-0.4) PT (8.83-12.87) SECONDS INR (0.8-3.0) APTT (24.1-36.1) SECONDS pO2/FiO2 Ratio % VBG pH (7.32-7.42) VBG pCO2 at Pat Temp (42-55) mm/Hg VBG pO2 at Pat Temp (25-40) mm/Hg VBG HCO3 (22-28) meq/L VBG O2 Sat ([place]) (95-100) VBG Base Excess (-2.0-2.0) VBG Hemoglobin VBG Carboxyhemoglobin (0.0-6.9) % T HGB POC Potassium (3.5-5.1) Sodium (137-145) mmol/L Potassium (3.5-5.1) mmol/L Chloride (98-107) mmol/L Carbon Dioxide (22-30) mmol/L Anion Gap (5-15) MEQ/L BUN (9-20) mg/dL Creatinine (0.66-1.25) mg/dL Estimated GFR ML/MIN Glucose (74-106) mg/dL Lactic Acid 1.0 (0.4-2.0) Calcium (8.4-10.2) mg/dL Total Bilirubin (0.2-1.3) mg/dL AST (17-59) U/L ALT (0-50) U/L Alkaline Phosphatase (38-126) U/L Troponin I (0.000-0.034) ng/mL Serum Total Protein (6.3-8.2) g/dL Albumin (3.5-5.0) g/dL Urine Color (YELLOW) Urine Appearance (CLEAR) Urine pH (5-6) Ur Specific [place] (1.005-1.025) Urine Protein (Negative) Urine Ketones (NEGATIVE) Urine Blood (0-5) Benito/ul Urine Nitrite (NEGATIVE) Urine Bilirubin (NEGATIVE) Urine Urobilinogen (0-1) mg/dL Ur Leukocyte Esterase (NEGATIVE) Urine WBC (Auto) (0-5) /HPF Urine RBC (Auto) (0-2) /HPF U Epithel Cells (Auto) (FEW) /HPF Urine Bacteria (Auto) (NEGATIVE) /HPF Urine Mucus (Auto) (NEGATIVE) /HPF Urine Glucose (NEGATIVE) mg/dL - Progress Progress: unchanged Progress Note: 10/22/18 15:[address] Tineo, patient's physician about patient's presentation and lab and x-ray results. Due to patient's insurance coverage, patient has not had any coverage for his CVA from last month in regards to his hospital visit and snf facility visit. Dr Tineo states patient is not a candidate for inpatient admission, but recommended Keron Lemon to come and speak to the patient and what home services the patient may qualify. 10/22/18 15:07 Spoke with Keron Lemon RN, Lodging Facilities Attendant. Keron will come and speak with the patient to see what coverage can be added to help the patient at home since he is not a candidate for inpatient or SNF payment coverage due to his insurance. Keron will come and evaluate the patient for his services he may qualify at home as an outpatient. 10/22/18 15:17 Patient's pain has improved. No focal neurologic deficits that are new or any other acute complaints 10/22/18 15:18 Keron Lemon RN spoke with the patient. Patient is doing outpatient PT close to his home and is staying with a friend who is with him at all times. Patient' s son is working again on getting him another inpatient stint. Keron states patient also has a history of drinking alcohol which may be contributing to his falls. 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 Follow up with your physician to continue monitoring your symptoms. Return immediately back to the emergency department if any focal weakness, loss of sensation, speech change, headache, bilateral leg symptoms, or any other concerning signs or symptoms that was not present to the emergency department visit for immediate reevaluation in the emergency department.
[2018-10-22] MEDS ORDERED: MORPHINE SULFATE 4 MG INJ ONE (13:43)
--- NOTE | 2018-10-22 13:46 | XRAY ---
Exam: AP portable chest film from 10/22/2018. Comparison: AP portable chest film from 09/18/2018. Indication: Sepsis, falls. Findings: The heart size is normal. The misbah and mediastinal structures appear unremarkable. There is moderate focal eventration/elevation of a portion of the right hemidiaphragm representing no change. The lungs are otherwise well expanded. No air space infiltrates, vascular congestion, pneumothorax, or pleural fluid is seen. Mild mid thoracic dextroscoliosis is seen. Degenerative changes are seen throughout the thoracic spine. An old left seventh rib fracture deformity is seen posterior laterally. Impression: 1. No infiltrates to suggest focal pneumonia or other acute cardiopulmonary disease is seen. 2. Other incidental findings, as described above, stable.
[2018-10-22 14:02] LABS: VBG BASE EXCESS 0.7 (-2.0-2.0); VBG CARBOXYHEMOGLOBIN 4.8 % T HGB (0.0-6.9); VBG HCO3- 25.4 meq/L (22-28); VBG HEMOGLOBIN 14.3; VBG O2 SATURATION 53.3 (95-100); VBG POTASSIUM 3.9 (3.5-5.1); VBG pH 7.41 (7.32-7.42)
--- NOTE | 2018-10-22 14:03 | XRAY ---
Exam: 3 view cervical spine series from 10/22/2018. Comparison: None. Indication: Neck pain, headache, dizziness. Findings: AP, open-mouth odontoid, lateral, and a lateral swimmer's view of the cervical spine were obtained. There is only visualization down to the upper aspect of C6 on the initial lateral image. C6 and C7 can be seen on the lateral swimmer's view, but fine bony detail is not seen. I see no acute cervical spine fracture. There is about 2.5 mm anterior subluxation of C3 over C4 and 2 mm anterior subluxation of C4 over C5. This is most likely due to degenerative changes, as no fracture is seen. I note moderate to marked anterior vertebral endplate spurring throughout the entire cervical spine. Consider diffuse idiopathic skeletal hyperostosis. There is minimal narrowing of the C5-C6 interspace height and mild to moderate narrowing of the C6-C7 interspace height. The AP view reveals mild convexity of the mid cervical spine toward the right centered at C4. Correlate clinically regarding spasm. The C1-C2 relationship appears unremarkable. No cervical ribs are seen. Some degenerative changes are seen within the lower cervical uncovertebral joints. No focal bone destruction is seen. Many of the patient's molar teeth are missing. Impression: 1. The study is mildly limited in the lateral projection, as discussed above. 2. However, I see no acute cervical spine fracture or AP traumatic subluxation. 3. 2.5 mm anterior subluxation of C3 over C4 and 2 mm anterior subluxation of C4 over C5 are likely degenerative in nature. 4. Degenerative osteoarthritic changes are seen within the cervical spine, as discussed above. DISH cannot be excluded. 5. Mild convexity of the mid cervical spine toward the right on the AP image. Consider spasm.
[2018-10-22 14:10] LABS: BASOPHIL % 0.4 % (0.0-0.4); Basophil (Absolute #) 0.05 (0-0.4); Eosinophil % 0.3 % (0.00-5.0); Eosinophil (Absolute #) 0.04 (0-0.5); Granulocytes % 83.2 % (36.0-66.0); Hematocrit 39.5 % (42-50); Hemoglobin 13.4 gm/dl (12.5-18.0); Lymphocyte (Absolute #) 1.08 (1.0-4.6); Lymphocytes % 8.6 % (24.0-44.0); Mean Cell Volume 107.6 fl (78-100); Mean Corpuscular Hemoglobin 36.5 pg (26-32); Mean Corpuscular Hgb Concent. 33.9 g/dl (32-36); Mean Platelet Volume 9.8 fl (6-9.5); Monocyte (Absolute #) 0.94 (0.0-1.3); Monocytes % 7.5 % (0.0-12.0); Platelet Count 160 K/mm3 (150-450); Red Blood Count 3.67 M/mm3 (4.1-5.6); Red Cell Distribution Width 12.6 % (11.5-14.0); White Blood Count 12.5 K/mm3 (4.0-10.5)
[2018-10-22 14:18] LABS: Appearance CLEAR (CLEAR); Bilirubin NEGATIVE (NEGATIVE); Blood NEGATIVE Ery/ul (0-5); Glucose NEGATIVE (NEGATIVE); Ketones NEGATIVE (NEGATIVE); Leukocyte Esterase NEGATIVE (NEGATIVE); Mucus SLIGHT /HPF (NEGATIVE); Nitrite NEGATIVE (NEGATIVE); Protein,Urine Dip NEGATIVE (Negative); Specific Gravity 1.008 (1.005-1.025); Urobilinogen 2 mg/dL (0-1)
[2018-10-22 14:20] LABS: INR 1.03 (0.8-3.0); PROTIME 11.7 SECONDS (8.83-12.87)
[2018-10-22 14:22] LABS: PTT 27.8 SECONDS (24.1-36.1)
[2018-10-22 14:23] LABS: ALBUMIN 4.1 g/dL (3.5-5.0); ALKALINE PHOSPHATASE 114 U/L (38-126); ANION GAP 12.5 MEQ/L (5-15); BLOOD UREA NITROGEN 9 mg/dL (9-20); CHLORIDE 103 mmol/L (98-107); Calcium 9.2 mg/dL (8.4-10.2); Carbon Dioxide 26 mmol/L (22-30); Glucose 116 mg/dL (74-106); SGOT/AST 19 U/L (17-59); SGPT/ALT 18 U/L (0-50); SODIUM 137 mmol/L (137-145); Total Protein 7.3 g/dL (6.3-8.2)
[2018-10-22 15:29] VITALS: BP 134/69; PULSE 87; O2SAT 97
== END 2018-10-22 16:48 | disposition home or self-care (01) ==
LOC: ED 12:29
DX: M47.812 Spondylosis without myelopathy or radiculopathy, cervical region (principal); R29.6 Repeated falls; Z79.899 Other long term (current) drug therapy; I10 Essential (primary) hypertension; J44.9 Chronic obstructive pulmonary disease, unspecified; M19.90 Unspecified osteoarthritis, unspecified site; F41.9 Anxiety disorder, unspecified; F32.9 Major depressive disorder, single episode, unspecified; T81.41XA Infection following a procedure, superficial incisional surgical site, initial encounter; M00.821 Arthritis due to other bacteria, right elbow; M46.86 Other specified inflammatory spondylopathies, lumbar region
CPT/HCPCS: 36000; 36415; 71045; 72040; 80053; 81001; 82805; 83605; 84484; 85025; 85610; 85730; 87040; 87077; 87086; 87186; 93005; 93041; 94760; 96374; 99284; J2270

== ENCOUNTER 2018-10-26 10:14 | Observation (INO) | payer MEDICARE, OTHER ==
[2018-10-26] MEDS ORDERED: BABY ASPIRIN 81 MG CHEW PO ONE (10:19)
[2018-10-26] MEDS ORDERED: Sodium Chloride 0.9% 1000 ML 1,000 ML IV STA (10:22)
[2018-10-26] MEDS ORDERED: BABY ASPIRIN 81 MG CHEW ONE (10:27)
[2018-10-26] MEDS ORDERED: Sodium Chloride 0.9% 1000 ML 1,000 ML ONE (10:27)
--- NOTE | 2018-10-26 10:30 | ERPHSYRPT ---
- History of Present Illness Time Seen by Provider: 10/26/18 10:15 Source: patient, EMS Exam Limitations: no limitations Patient Subjective Stated Complaint: pt arrived by ambulance for a fall to floor , he states he got weak and laid on floor, he approximates on floor for 5 hours before someone found him. pt has had been seen a lot recently for falls, Triage Nursing Assessment: pt alert, oriented to person,place and time, sin w/d/ p and flaking, has reddness, swelling and wound to right elbow that is old for himand is taking antibotic for, has superficial abrasions to right side of back , pt has no new cos, he states he has chronic back pain, Physician History: Patient had generalized weakness and laid on the ground on his bathroom for over 5 hours, calling EMS to help lift him up. Patient has had recurrent falls , generalized weakness, low back pain and persistent headaches over the past week. Occurred: yesterday Injuries/Pain Location: no injury, back (chronic issue, but falling more frequently; denies any injury, simply laid down due to fatigue) Loss of Consciousness: no loss of consciousness Quality: aching Severity of Pain-Max: moderate Severity of Pain-Current: mild (chronic issue from his chronic low back pain, no new intensity) Modifying Factors: Improves With: movement (due more to generalized weakness) Associated Symptoms (Fall): denies symptoms, No abdominal pain, No back pain, No confusion, No chest pain, No dizziness, No extremity injury, No headache, No lightheadedness, No muscle spasms, No nausea, No neck pain, No ringing in ears, No seizures, No shortness of breath, No slurred speech, No vomiting, No vision changes Allergies/Adverse Reactions: No Known Drug Allergies Allergy (Verified 10/26/18 11:29) Home Medications: Clonazepam 0.5 mg [Klonopin 0.5 MG] 0.5 mg PO TID PRN 09/18/18 [History] Gabapentin 300 mg PO TID 09/18/18 [History] Ibuprofen 800 mg PO TID 09/18/18 [History] Omeprazole 20 mg PO DAILY 09/18/18 [History] Trandolapril 4 mg PO DAILY 09/18/18 [History] Verapamil HCl [Verapamil ER] 240 mg PO QHS 09/18/18 [History] Zolpidem Tartrate 10 mg PO QHS 09/18/18 [History] Hx Tetanus, Diphtheria Vaccination/Date Given: No Hx Influenza Vaccination/Date Given: No Hx Pneumococcal Vaccination/Date Given: No - Review of Systems Constitutional: Fatigue, No Fever, No Chills Eyes: No Symptoms, No Eye Pain, No Vision Changes Ears, Nose, & Throat: No Symptoms, No Ear Pain, No Ear Discharge, No Throat Pain , No Throat Swelling Respiratory: No Cough, No Dyspnea Cardiac: No Chest Pain, No Edema, No Syncope Abdominal/Gastrointestinal: No Abdominal Pain, No Nausea, No Vomiting, No Diarrhea Genitourinary Symptoms: No Dysuria, No Hematuria, No Flank Pain Musculoskeletal: Back Pain, No Neck Pain Skin: No Rash Neurological: Headache, No Dizziness, No Focal Weakness, No Parasthesia, No Sensory Changes, No Tremors, No Vertigo Psychological: No Symptoms Endocrine: No Symptoms All Other Systems: Reviewed and Negative - Past Medical History Pertinent Past Medical History: Yes Neurological History: Stroke ENT History: Cataracts Cardiac History: Hypertension Respiratory History: Bronchitis, COPD Endocrine Medical History: No Pertinent History Musculoskeletal History: Degenerative Disk Disease, Fractures, Osteoarthritis GI Medical History: No Pertinent History History: Other Psycho-Social History: Anxiety, Depression Male Reproductive Disorders: No Pertinent History Other Medical History: overactive bladder, functional incontinence; R arm fracture about 55 years ago - Past Surgical History Past Surgical History: Yes Neuro Surgical History: No Pertinent History Cardiac: No Pertinent History Respiratory: No Pertinent History Gastrointestinal: No Pertinent History Genitourinary: No Pertinent History Musculoskeletal: Other Male Surgical History: No Pertinent History Other Surgical History: Lumbar surgery 1999, 2 cysts removed from back - Social History Smoking Status: Current every day smoker How long have you smoked: 25 years Exposure to second hand smoke: Yes Drug Use: none Patient Lives Alone: Yes - Nursing Vital Signs Nursing Vital Signs: Initial Vital Signs Temperature 97.0 F 10/26/18 10:16 Pulse Rate 71 10/26/18 10:16 Respiratory Rate 18 10/26/18 10:16 Blood Pressure 129/71 10/26/18 10:16 O2 Sat by Pulse Oximetry 99 10/26/18 10:16 Pain Scale Pain Intensity 2 - [place] Coma Score Best Eye Response (Rafiq): (4) open spontaneously Best Verbal Response (Rafiq): (5) oriented Best Motor Response (Rafiq): (6) obeys commands Rafiq Total: 15 - Physical Exam General Appearance: no apparent distress, alert Head Injury: no evidence of injury, No active bleeding, No Doyle's Sign Eye Exam: PERRL/EOMI, eyes nml inspection, No scleral icterus ENT Exam: airway nml, nml ext.inspection, No evidence of ENT injury, No dental injury, No clear fluid (nose), No midface instability, No hemotympanum, No clotted nasal blood, No malocclusion, No oral injury Neck Exam: supple, trachea midline, full range of motion, normal inspection, No tenderness Respiratory/Chest Exam: normal breath sounds, No chest tenderness, No respiratory distress, No decreased breath sounds, No rales, No rhonchi, No wheezing, No accessory muscle use, No rib tenderness Cardiovascular Exam: normal heart sounds, regular rate/rhythm, normal peripheral pulses Gastrointestinal Exam: soft, normal bowel sounds, No tenderness, No distention, No guarding, No ecchymosis, No rebound, No hernia Back Exam: normal inspection, No CVA tenderness, No vertebral tenderness Extremity Exam: normal inspection, normal range of motion, capillary refill <3 sec, pelvis stable, lacerations (scabbed laceration to right elbow with surrounding erythema), No deformities, No limited range of motion, No evidence of injury, No hip tenderness, No joint effusion, No pain with movement Neurologic Exam: alert, oriented x 3, cooperative, sensation nml, No motor deficits Skin Exam: normal color, warm, dry SpO2 Interpretation: normal SpO2: 99 O2 Delivery: Room Air - Course Nursing assessment & vital signs reviewed: Yes EKG Interpreted by Me: RATE (78), NORMAL AXIS, NORMAL INTERVALS, NORMAL QRS, NORMAL ST-T, Other (low voltage in the limb leads) - Radiology Exams Chest X-ray Interpretation: Interpreted by me, Reviewed by me, No Pneumonia, No Pneumothorax, Nml Heart Size, No Infiltrates, Nml Mediastinum, Nml Soft Tissues - CT Exams Head CT Interpretation: Tele-radiologist Report, No Fracture, No/Intracranial Hemorrhag, Other (per radiologist interpretation: No hemorrhage, unremarkable white matter, no mass effect. The lateral ventricles are slightly large, however this is stable. No acute fracture. There is a rightward gaze preference. Visualize mastoid air cells are well.. Soft tissues unremarkable. Overall impression: There is no acute intracranial abnormality.) Lumbar Spine CT Interpretation: Tele-radiologist Report (pper radiologist interpretation: There is a 2 mm retrolisthesis of L2, L3. This preservation vertebral body height. There is loss of disc space height throughout most focally at L2L3 and L5-S1 where there is vacuum phenomenon. Her postop changes from a right laminectomy at L5-S1. There are degenerative changes of the sacroiliac joints. There is a small right pleural effusion. His atherosclerotic disease involving the abdominal aorta and pelvic vessels without any aneurysm. Soft tissues unremarkable. Overall impression: Degenerative changes. No acute fracture.) Ordered Tests: Active Orders 24 hr Category Date Time Status Job Hand STAT Care 10/26/18 10:20 Active EKG-ER Only STAT Care 10/26/18 10:19 Active IV Insertion STAT Care 10/26/18 10:19 Active Pulse Oximetry (ED) STAT Care 10/26/18 10:20 Active CHEST 1 VIEW (PORTABLE) Stat Exams 10/26/18 11:01 Taken HEAD WITHOUT CONTRAST [CT] Stat Exams 10/26/18 10:22 Taken LUMBAR SPINE W/O [CT] Stat Exams 10/26/18 10:23 Taken ACETAMINOPHEN Stat Lab 10/26/18 11:22 Completed BLOOD CULTURE Stat Lab 10/26/18 10:35 Received CBC W DIFF Stat Lab 10/26/18 10:30 Completed CK-Creatinine Phosphokinase Stat Lab 10/26/18 10:30 Completed CMP Stat Lab 10/26/18 10:30 Completed CULTURE,URINE Stat Lab 10/26/18 10:20 Uncollected ETHYL ALCOHOL Routine Lab 10/26/18 10:30 Completed Lactic Acid Stat Lab 10/26/18 10:20 Completed Manual Differential NC Stat Lab 10/26/18 10:30 Completed NT PRO BNP Stat Lab 10/26/18 10:30 Completed PROTIME WITH INR Stat Lab 10/26/18 10:30 Completed PTT Stat Lab 10/26/18 10:30 Completed TROPONIN Q3H Lab 10/26/18 10:30 Completed TROPONIN Q3H Lab 10/26/18 13:30 Ordered TROPONIN Q3H Lab 10/26/18 16:30 Ordered TROPONIN Q3H Lab 10/26/18 19:30 Ordered TROPONIN Q3H Lab 10/26/18 22:30 Ordered Urine Triage Profile Stat Lab 10/26/18 10:20 Uncollected Urine Triage Profile Stat Lab 10/26/18 10:23 Uncollected Medication Summary Generic Name Dose Route Start Last Admin Trade Name Frejeri PRN Reason Stop Dose Admin Vancomycin HCl 1 gm in 250 mls @ 167 mls/hr 10/26/18 10:31 10/26/18 11:05 Vancomycin 1gm/ Ns 250ml IV 10/26/18 12:00 167 mls/hr STAT ONE Administration Cefazolin Sodium/Dextrose 1 gm in 50 mls @ 100 mls/hr 10/26/18 11:35 Kefzol 1 Gm/50 Ml Premix IV 10/26/18 12:04 STAT STA Discontinued Medications Generic Name Dose Route Start Last Admin Trade Name Lewis PRN Reason Stop Dose Admin Aspirin 324 mg 10/26/18 10:19 10/26/18 10:29 Baby Aspirin 81 Mg Chew PO 10/26/18 10:20 324 mg STAT ONE Administration Aspirin Confirm 10/26/18 10:27 Baby Aspirin 81 Mg Chew Administered 10/26/18 10:28 Dose 324 mg .ROUTE .STK-MED ONE Sodium Chloride 1,000 mls @ 999 mls/hr 10/26/18 10:22 10/26/18 10:29 Sodium Chloride 0.9% 1000 Ml IV 10/26/18 11:22 999 mls/hr .Q1H1M STA Administration Sodium Chloride Confirm 10/26/18 10:27 Sodium Chloride 0.9% 1000 Ml Administered 10/26/18 10:28 Dose 1,000 mls @ ud .ROUTE .STK-MED ONE Vancomycin HCl Confirm 10/26/18 11:04 Vancomycin 1gm/ Ns 250ml Administered 10/26/18 11:05 Dose 250 mls @ ud IV .STK-MED ONE Lab/Rad Data: Laboratory Result Diagrams 10/26/18 10:30 10/26/18 10:30 Laboratory Results 10/26/18 10/26/18 10/26/18 Range/Units 11:22 10:30 10:30 WBC (4.0-10.5) K/mm3 RBC (4.1-5.6) M/mm3 Hgb (12.5-18.0) gm/dl Hct (42-50) % MCV (78-100) fl MCH (26-32) pg MCHC (32-36) g/dl RDW (11.5-14.0) % Plt Count (150-450) K/mm3 MPV (6-9.5) fl Segmented Neutrophils (36.-66.) % Band Neutrophils (0.0-2.0) % Lymphocytes (Manual) (24-44) % Monocytes (Manual) (0.0-12.0) % Hypersegmented Polys Toxic Granulation Platelet Estimate (NORMAL) RBC Morphology Macrocytosis PT 11.7 (8.83-12.87) SECONDS INR 1.03 (0.8-3.0) APTT 26.9 (24.1-36.1) SECONDS Sodium (137-145) mmol/L Potassium (3.5-5.1) mmol/L Chloride (98-107) mmol/L Carbon Dioxide (22-30) mmol/L Anion Gap (5-15) MEQ/L BUN (9-20) mg/dL Creatinine (0.66-1.25) mg/dL Estimated GFR ML/MIN Glucose (74-106) mg/dL Lactic Acid (0.4-2.0) Calcium (8.4-10.2) mg/dL Total Bilirubin (0.2-1.3) mg/dL AST (17-59) U/L ALT (0-50) U/L Alkaline Phosphatase (38-126) U/L Creatine Kinase (55-170) U/L Troponin I < 0.012 (0.000-0.034) ng/mL NT-Pro-B Natriuret Pep (0-900) pg/mL Serum Total Protein (6.3-8.2) g/dL Albumin (3.5-5.0) g/dL Acetaminophen < 10 L (10-30) ug/ml Ethyl Alcohol < 10 (0-10) mg/dL 10/26/18 10/26/18 10/26/18 Range/Units 10:30 10:30 10:20 WBC 14.5 H (4.0-10.5) K/mm3 RBC 3.68 L (4.1-5.6) M/mm3 Hgb 13.4 (12.5-18.0) gm/dl Hct 38.7 L (42-50) % MCV 105.2 H (78-100) fl MCH 36.4 H (26-32) pg MCHC 34.6 (32-36) g/dl RDW 12.5 (11.5-14.0) % Plt Count 205 (150-450) K/mm3 MPV 9.3 (6-9.5) fl Segmented Neutrophils 84 H (36.-66.) % Band Neutrophils 5 H (0.0-2.0) % Lymphocytes (Manual) 7 L (24-44) % Monocytes (Manual) 4 (0.0-12.0) % Hypersegmented Polys 1+ Toxic Granulation 1+ Platelet Estimate NORMAL (NORMAL) RBC Morphology ABNORMAL Macrocytosis 1+ PT (8.83-12.87) SECONDS INR (0.8-3.0) APTT (24.1-36.1) SECONDS Sodium 138 (137-145) mmol/L Potassium 3.9 (3.5-5.1) mmol/L Chloride 104 (98-107) mmol/L Carbon Dioxide 23 (22-30) mmol/L Anion Gap 14.3 (5-15) MEQ/L BUN 20 (9-20) mg/dL Creatinine 0.69 (0.66-1.25) mg/dL Estimated GFR > 60.0 ML/MIN Glucose 149 H (74-106) mg/dL Lactic Acid 1.4 (0.4-2.0) Calcium 9.0 (8.4-10.2) mg/dL Total Bilirubin 1.60 H (0.2-1.3) mg/dL AST 32 (17-59) U/L ALT 59 H (0-50) U/L Alkaline Phosphatase 146 H (38-126) U/L Creatine Kinase 34 L (55-170) U/L Troponin I (0.000-0.034) ng/mL NT-Pro-B Natriuret Pep 318 (0-900) pg/mL Serum Total Protein 6.7 (6.3-8.2) g/dL Albumin 3.3 L (3.5-5.0) g/dL Acetaminophen (10-30) ug/ml Ethyl Alcohol (0-10) mg/dL Urine Culture: 10/22/2018: Positive for E.Coli, is pansensitive but no mention of sensitivity to tetracycline/doxycycline Blood Culture: 10/22/2018: Positive for Staph Aureus, sensitive to doxycycline that patient was sent home - Progress Progress Note: 10/26/18 12:00 Discussed the patient, his history, lab results, examination, CT scan results with Dr Ring, hospitalist. Dr Ring accepted the patient for observation and states we can continue oral antibiotics, cycle cardiac enzymes and place on telemetry. Discussed with .: Vasquez Will see patient in: hospital (observation) Counseled pt/family regarding: lab results, diagnosis, need for follow-up, rad results - Departure Departure Disposition: Observation Clinical Impression: Bacteremia due to Staphylococcus aureus, Generalized weakness, Cellulitis of right elbow, Recurrent falls while walking, Degenerative disc disease at L5-S1 level, HTN (hypertension) Leukocytosis, unspecified Qualifiers: Leukocytosis type: unspecified Qualified Code(s): D72.829 - Elevated white blood cell count, unspecified Headache Qualifiers: Headache type: unspecified Headache chronicity pattern: chronic headache Condition: Fair Critical Care Time: No Referrals: DIMAS TINEO MD [Primary Care Provider] -
[2018-10-26] MEDS ORDERED: Vancomycin 1GM/ Ns 250ML*** 1 GM/250 ML IVPB IV ONE (10:31)
[2018-10-26 10:44] LABS: Hematocrit 38.7 % (42-50); Hemoglobin 13.4 gm/dl (12.5-18.0); Mean Cell Volume 105.2 fl (78-100); Mean Corpuscular Hemoglobin 36.4 pg (26-32); Mean Corpuscular Hgb Concent. 34.6 g/dl (32-36); Mean Platelet Volume 9.3 fl (6-9.5); Platelet Count 205 K/mm3 (150-450); Red Blood Count 3.68 M/mm3 (4.1-5.6); Red Cell Distribution Width 12.5 % (11.5-14.0); White Blood Count 14.5 K/mm3 (4.0-10.5)
[2018-10-26 10:54] LABS: INR 1.03 (0.8-3.0); PROTIME 11.7 SECONDS (8.83-12.87)
[2018-10-26 10:56] LABS: PTT 26.9 SECONDS (24.1-36.1)
[2018-10-26 11:00] LABS: BAND 5 % (0.0-2.0); Lymphocytes 7 % (24-44); Monocyte 4 % (0.0-12.0); Neutrophils 84 % (36.-66.); Platelet Estimate NORMAL (NORMAL); Total Cells Counted 100
[2018-10-26 11:01] LABS: Hypersegmented Polys 1+
[2018-10-26 11:02] LABS: Macrocytosis 1+; Toxic Granulation 1+
[2018-10-26] MEDS ORDERED: Vancomycin 1GM/ Ns 250ML*** 250 ML IV ONE (11:04)
[2018-10-26 11:05] LABS: ALBUMIN 3.3 g/dL (3.5-5.0); ALKALINE PHOSPHATASE 146 U/L (38-126); ANION GAP 14.3 MEQ/L (5-15); BLOOD UREA NITROGEN 20 mg/dL (9-20); CHLORIDE 104 mmol/L (98-107); CK-Creatinine Phosphokinase 34 U/L (55-170); Carbon Dioxide 23 mmol/L (22-30); Creatinine 1 0.69 mg/dL (0.66-1.25); Glucose 149 mg/dL (74-106); NT PRO BNP 318 pg/mL (0-900); Potassium 3.9 mmol/L (3.5-5.1); SGOT/AST 32 U/L (17-59); SGPT/ALT 59 U/L (0-50); SODIUM 138 mmol/L (137-145); Total Protein 6.7 g/dL (6.3-8.2)
[2018-10-26 11:13] LABS: ETHYL ALCOHOL < 10 mg/dL (0-10); TROPONIN < 0.012 ng/mL (0.000-0.034)
[2018-10-26] MEDS ORDERED: KEFZOL 1 GM/50 ML PREMIX** 1 GM/50 ML IVPB IV STA (11:35)
[2018-10-26] MEDS ORDERED: KEFZOL 1 GM/50 ML PREMIX** 1 GM/50 ML IVPB IV ONE (11:52)
[2018-10-26] MEDS: Sodium Chloride 0.9% 1000 ML 1,000 ML IV SCH ×2 (13:25→23:59)
[2018-10-26] MEDS ORDERED: Neurontin 100 MG PO SCH (15:00)
[2018-10-26] MEDS: NEURONTIN 300 MG PO SCH ×2 (15:44→22:44)
[2018-10-26] MEDS: Cyclobenzaprine 10 MG PO SCH ×2 (15:44→22:43)
[2018-10-26 16:05] LABS: Appearance CLEAR (CLEAR); Bilirubin NEGATIVE (NEGATIVE); Blood NEGATIVE Ery/ul (0-5); Glucose NEGATIVE (NEGATIVE); Ketones NEGATIVE (NEGATIVE); Leukocyte Esterase NEGATIVE (NEGATIVE); Mucus SLIGHT /HPF (NEGATIVE); Nitrite NEGATIVE (NEGATIVE); Protein,Urine Dip NEGATIVE (Negative); Specific Gravity 1.006 (1.005-1.025); Urobilinogen 4 mg/dL (0-1)
[2018-10-26 16:21] LABS: Amphetamine,Urine NEGATIVE (NEGATIVE); Barbiturate,Urine NEGATIVE (NEGATIVE); Benzodiazepine,Urine NEGATIVE (NEGATIVE); Cocaine,Urine NEGATIVE (NEGATIVE); Methadone,Urine NEGATIVE (NEGATIVE); Opiate,Urine NEGATIVE (NEGATIVE); PCP,Urine NEGATIVE (NEGATIVE); THC,Urine NEGATIVE (NEGATIVE)
--- NOTE | 2018-10-26 17:02 | PCM.HP ---
History of Present Illness - Chief Complaint Chief Complaint: Recurrent Falls, DDD/Lumbar Spine, Generalized Weakness Date: 10/26/18 History of Present Illness: is a 68 year old male. Admitted this am after presenting to ER. Pt. went to bathroom early this am and felt weak, so he laid on the floor reportedly he slept there 2-3 hours and called his son then who called ems for transport to ER. Pt. reports he gets feeling weak and lays on the ground but then unable to get back up. Pt. notes this symptom has been steadily worsening over the past 1 year, apparently he had a TIA about 4-6 weeks ago and was admitted for rehab and discharged after about 2 weeks. Pt. notes a long history of neck and lower back pain, he has an appointment to see ortho in [facility] next month regarding chronic pain in these areas. - Review of Systems Constitutional: No Fever, No Chills Eyes: No Symptoms Ears, Nose, & Throat: No Symptoms Respiratory: No Symptoms, Cough (mild) Cardiac: No Chest Pain, No Edema, No Syncope Abdominal/Gastrointestinal: No Abdominal Pain, No Nausea, No Vomiting, No Diarrhea Genitourinary Symptoms: No Symptoms, Incontinence (chronic) Musculoskeletal: Arthralgias, Back Pain, Neck Pain Skin: No Rash Neurological: No Dizziness, No Lethargy, No Paralysis, No Parasthesia, No Seizure, No Sensory Changes, No Speech Changes Psychological: No Symptoms Endocrine: No Symptoms Hematologic/Lymphatic: Easy Bruising Immunological/Allergic: No Symptoms Medications & Allergies Home Medications: Home Medication List Clonazepam 0.5 mg [Klonopin 0.5 MG] 0.5 mg PO TID PRN PRN 09/18/18 [ History Confirmed 10/26/18] Gabapentin 300 mg PO TID 09/18/18 [History Confirmed 10/26/18] Ibuprofen 800 mg PO TID 09/18/18 [History Confirmed 10/26/18] Omeprazole 20 mg PO DAILY 09/18/18 [History Confirmed 10/26/18] Trandolapril 4 mg PO DAILY 09/18/18 [History Confirmed 10/26/18] Verapamil HCl [Verapamil ER] 240 mg PO QHS 09/18/18 [History Confirmed 10/26/18] Zolpidem Tartrate 10 mg PO QHS 09/18/18 [History Confirmed 10/26/18] Cyclobenzaprine HCl 10 mg [Cyclobenzaprine 10 MG] 5 mg PO TID tablet 12/30 [Rx Confirmed 10/26/18] Doxycycline Hyclate 100 mg [Vibramycin 100 MG] 100 mg PO BID #20 tab 10/22 [Rx Confirmed 10/26/18] Allergies/Adverse Reactions: Allergies Allergy/AdvReac Type Severity Reaction Status Date / Time No Known Drug Allergies Allergy Verified 10/26/18 11:29 - Past Medical History Past Medical History: Yes Neurological History: Stroke ENT History: Cataracts Cardiac History: Hypertension Respiratory History: Bronchitis, COPD Endocrine Medical History: No Pertinent History Musculoskelatal History: Degenerative Disk Disease, Fractures, Osteoarthritis GI Medical History: No Pertinent History History: Other Pyscho-Social History: Anxiety, Depression Male Reproductive Disorders: No Pertinent History Comment: overactive bladder, functional incontinence; R arm fracture about 55 years ago - Past Surgical History Past Surgical History: Yes Neuro Surgical History: No Pertinent History Cardiac History: No Pertinent History Respiratory Surgery: No Pertinent History GI Surgical History: No Pertinent History Genitourinary Surgical Hx: No Pertinent History Musculskeletal Surgical Hx: Other Male Surgical History: No Pertinent History Other Surgical History: Lumbar surgery 1999, 2 cysts removed from back - Social History Smoking Status: Current every day smoker How long have you smoked: "15 years" Exposure to second hand smoke: Yes Alcohol: Weekly Drug Use: none - Physical Exam Vital Signs: Vital Signs - 24 hr Temp Pulse Resp BP Pulse Ox 10/26/18 16:00 98.6 F 87 18 129/67 96 10/26/18 14:49 81 16 95 10/26/18 13:51 98.4 F 82 20 130/64 95 10/26/18 12:29 98.0 F 83 20 164/84 91 L 10/26/18 12:06 99 10/26/18 11:04 98.0 F 75 149/79 92 L 10/26/18 11:01 97 10/26/18 10:16 97.0 F 71 18 129/71 99 Oxygen-Last 24 hours O2 Percentage 2 Liters = 28% O2 Percentage 2 Liters = 28% General Appearance: no apparent distress, alert Neurologic Exam: alert, oriented x 3, cooperative, normal mood/affect, nml cerebellar function, sensation nml, No motor deficits Eye Exam: PERRL/EOMI, eyes nml inspection Ears, Nose, Throat Exam: normal ENT inspection, TMs normal, pharynx normal, moist mucous membranes Neck Exam: normal inspection, supple Respiratory Exam: normal breath sounds, lungs clear, No respiratory distress Cardiovascular Exam: regular rate/rhythm, normal heart sounds, normal peripheral pulses Gastrointestinal/Abdomen Exam: soft, normal bowel sounds, No tenderness, No mass Extremity Exam: normal inspection, normal range of motion, pelvis stable Skin Exam: normal color, warm, dry, No rash Lymphatic Exam: No adenopathy Results - Labs Lab/Micro Results: Lab Results-Last 24 Hours 10/26/18 10/26/18 10/26/18 Range/Units 10:20 10:30 10:30 WBC 14.5 H (4.0-10.5) K/mm3 RBC 3.68 L (4.1-5.6) M/mm3 Hgb 13.4 (12.5-18.0) gm/dl Hct 38.7 L (42-50) % MCV 105.2 H (78-100) fl MCH 36.4 H (26-32) pg MCHC 34.6 (32-36) g/dl RDW 12.5 (11.5-14.0) % Plt Count 205 (150-450) K/mm3 MPV 9.3 (6-9.5) fl Segmented Neutrophils 84 H (36.-66.) % Band Neutrophils 5 H (0.0-2.0) % Lymphocytes (Manual) 7 L (24-44) % Monocytes (Manual) 4 (0.0-12.0) % Hypersegmented Polys 1+ Toxic Granulation 1+ Platelet Estimate NORMAL (NORMAL) RBC Morphology ABNORMAL Macrocytosis 1+ PT (8.83-12.87) SECONDS INR (0.8-3.0) APTT (24.1-36.1) SECONDS Sodium 138 (137-145) mmol/L Potassium 3.9 (3.5-5.1) mmol/L Chloride 104 (98-107) mmol/L Carbon Dioxide 23 (22-30) mmol/L Anion Gap 14.3 (5-15) MEQ/L BUN 20 (9-20) mg/dL Creatinine 0.69 (0.66-1.25) mg/dL Estimated GFR > 60.0 ML/MIN Glucose 149 H (74-106) mg/dL Lactic Acid 1.4 (0.4-2.0) Calcium 9.0 (8.4-10.2) mg/dL Total Bilirubin 1.60 H (0.2-1.3) mg/dL AST 32 (17-59) U/L ALT 59 H (0-50) U/L Alkaline Phosphatase 146 H (38-126) U/L Creatine Kinase 34 L (55-170) U/L Troponin I (0.000-0.034) ng/mL NT-Pro-B Natriuret Pep 318 (0-900) pg/mL Serum Total Protein 6.7 (6.3-8.2) g/dL Albumin 3.3 L (3.5-5.0) g/dL Urine Color (YELLOW) Urine Appearance (CLEAR) Urine pH (5-6) Ur Specific [place] (1.005-1.025) Urine Protein (Negative) Urine Ketones (NEGATIVE) Urine Blood (0-5) [place]/ul Urine Nitrite (NEGATIVE) Urine Bilirubin (NEGATIVE) Urine Urobilinogen (0-1) mg/dL Ur Leukocyte Esterase (NEGATIVE) Urine WBC (Auto) (0-5) /HPF Urine RBC (Auto) (0-2) /HPF U Epithel Cells (Auto) (FEW) /HPF Urine Bacteria (Auto) (NEGATIVE) /HPF Urine Mucus (Auto) (NEGATIVE) /HPF Urine Glucose (NEGATIVE) mg/dL Urine Opiates Level (NEGATIVE) Ur Methadone (NEGATIVE) Acetaminophen (10-30) ug/ml Urine Barbiturates (NEGATIVE) Ur Phencyclidine (PCP) (NEGATIVE) Urine Amphetamine (NEGATIVE) U Benzodiazepine Level (NEGATIVE) Urine Cocaine (NEGATIVE) Urine Marijuana (THC) (NEGATIVE) Ethyl Alcohol (0-10) mg/dL 10/26/18 10/26/18 10/26/18 Range/Units 10:30 10:30 11:22 WBC (4.0-10.5) K/mm3 RBC (4.1-5.6) M/mm3 Hgb (12.5-18.0) gm/dl Hct (42-50) % MCV (78-100) fl MCH (26-32) pg MCHC (32-36) g/dl RDW (11.5-14.0) % Plt Count (150-450) K/mm3 MPV (6-9.5) fl Segmented Neutrophils (36.-66.) % Band Neutrophils (0.0-2.0) % Lymphocytes (Manual) (24-44) % Monocytes (Manual) (0.0-12.0) % Hypersegmented Polys Toxic Granulation Platelet Estimate (NORMAL) RBC Morphology Macrocytosis PT 11.7 (8.83-12.87) SECONDS INR 1.03 (0.8-3.0) APTT 26.9 (24.1-36.1) SECONDS Sodium (137-145) mmol/L Potassium (3.5-5.1) mmol/L Chloride (98-107) mmol/L Carbon Dioxide (22-30) mmol/L Anion Gap (5-15) MEQ/L BUN (9-20) mg/dL Creatinine (0.66-1.25) mg/dL Estimated GFR ML/MIN Glucose (74-106) mg/dL Lactic Acid (0.4-2.0) Calcium (8.4-10.2) mg/dL Total Bilirubin (0.2-1.3) mg/dL AST (17-59) U/L ALT (0-50) U/L Alkaline Phosphatase (38-126) U/L Creatine Kinase (55-170) U/L Troponin I < 0.012 (0.000-0.034) ng/mL NT-Pro-B Natriuret Pep (0-900) pg/mL Serum Total Protein (6.3-8.2) g/dL Albumin (3.5-5.0) g/dL Urine Color (YELLOW) Urine Appearance (CLEAR) Urine pH (5-6) Ur Specific [place] (1.005-1.025) Urine Protein (Negative) Urine Ketones (NEGATIVE) Urine Blood (0-5) Benito/ul Urine Nitrite (NEGATIVE) Urine Bilirubin (NEGATIVE) Urine Urobilinogen (0-1) mg/dL Ur Leukocyte Esterase (NEGATIVE) Urine WBC (Auto) (0-5) /HPF Urine RBC (Auto) (0-2) /HPF U Epithel Cells (Auto) (FEW) /HPF Urine Bacteria (Auto) (NEGATIVE) /HPF Urine Mucus (Auto) (NEGATIVE) /HPF Urine Glucose (NEGATIVE) mg/dL Urine Opiates Level (NEGATIVE) Ur Methadone (NEGATIVE) Acetaminophen < 10 L (10-30) ug/ml Urine Barbiturates (NEGATIVE) Ur Phencyclidine (PCP) (NEGATIVE) Urine Amphetamine (NEGATIVE) U Benzodiazepine Level (NEGATIVE) Urine Cocaine (NEGATIVE) Urine Marijuana (THC) (NEGATIVE) Ethyl Alcohol < 10 (0-10) mg/dL 10/26/18 10/26/18 10/26/18 Range/Units 13:23 14:30 14:30 WBC (4.0-10.5) K/mm3 RBC (4.1-5.6) M/mm3 Hgb (12.5-18.0) gm/dl Hct (42-50) % MCV (78-100) fl MCH (26-32) pg MCHC (32-36) g/dl RDW (11.5-14.0) % Plt Count (150-450) K/mm3 MPV (6-9.5) fl Segmented Neutrophils (36.-66.) % Band Neutrophils (0.0-2.0) % Lymphocytes (Manual) (24-44) % Monocytes (Manual) (0.0-12.0) % Hypersegmented Polys Toxic Granulation Platelet Estimate (NORMAL) RBC Morphology Macrocytosis PT (8.83-12.87) SECONDS INR (0.8-3.0) APTT (24.1-36.1) SECONDS Sodium (137-145) mmol/L Potassium (3.5-5.1) mmol/L Chloride (98-107) mmol/L Carbon Dioxide (22-30) mmol/L Anion Gap (5-15) MEQ/L BUN (9-20) mg/dL Creatinine (0.66-1.25) mg/dL Estimated GFR ML/MIN Glucose (74-106) mg/dL Lactic Acid (0.4-2.0) Calcium (8.4-10.2) mg/dL Total Bilirubin (0.2-1.3) mg/dL AST (17-59) U/L ALT (0-50) U/L Alkaline Phosphatase (38-126) U/L Creatine Kinase (55-170) U/L Troponin I < 0.012 (0.000-0.034) ng/mL NT-Pro-B Natriuret Pep (0-900) pg/mL Serum Total Protein (6.3-8.2) g/dL Albumin (3.5-5.0) g/dL Urine Color YELLOW (YELLOW) Urine Appearance CLEAR (CLEAR) Urine pH 7.0 (5-6) Ur Specific [place] 1.006 (1.005-1.025) Urine Protein NEGATIVE (Negative) Urine Ketones NEGATIVE (NEGATIVE) Urine Blood NEGATIVE (0-5) [place]ito/ul Urine Nitrite NEGATIVE (NEGATIVE) Urine Bilirubin NEGATIVE (NEGATIVE) Urine Urobilinogen 4 (0-1) mg/dL Ur Leukocyte Esterase NEGATIVE (NEGATIVE) Urine WBC (Auto) NONE (0-5) /HPF Urine RBC (Auto) NONE (0-2) /HPF U Epithel Cells (Auto) NONE (FEW) /HPF Urine Bacteria (Auto) NONE (NEGATIVE) /HPF Urine Mucus (Auto) SLIGHT (NEGATIVE) /HPF Urine Glucose NEGATIVE (NEGATIVE) mg/dL Urine Opiates Level NEGATIVE (NEGATIVE) Ur Methadone NEGATIVE (NEGATIVE) Acetaminophen (10-30) ug/ml Urine Barbiturates NEGATIVE (NEGATIVE) Ur Phencyclidine (PCP) NEGATIVE (NEGATIVE) Urine Amphetamine NEGATIVE (NEGATIVE) U Benzodiazepine Level NEGATIVE (NEGATIVE) Urine Cocaine NEGATIVE (NEGATIVE) Urine Marijuana (THC) NEGATIVE (NEGATIVE) Ethyl Alcohol (0-10) mg/dL - Radiology Impressions Radiology Exams & Impressions: Radiology Procedures Category Date Time Status CHEST 1 VIEW (PORTABLE) Stat Exams 10/26/18 11:01 Taken HEAD WITHOUT CONTRAST [CT] Stat Exams 10/26/18 10:22 Taken LUMBAR SPINE W/O [CT] Stat Exams 10/26/18 10:23 Taken - Other Procedures and Tests Respiratory Therapy 10/26/18 13:18 EKG 10/26/18 14:28 Smoking Cessation Education ONCE 10/26/18 14:47 Peak Expiratory Flow Rate ONCE Respiratory Therapy Assessment DAILY 10/26/18 14:48 Oxygen Nasal Cannula 2 lpm Assessment/Plan (1) Generalized weakness Current Visit: Yes Status: Acute Code(s): R53.1 - WEAKNESS (2) HTN (hypertension) Current Visit: Yes Status: Chronic Qualifiers: Code(s): I10 - ESSENTIAL (PRIMARY) HYPERTENSION (3) Degenerative arthritis of cervical spine Current Visit: No Status: Chronic Qualifiers: Spinal osteoarthritis complication: unspecified spinal osteoarthritis Qualified Code(s): M47.812 - Spondylosis without myelopathy or radiculopathy, cervical region Code(s): M47.812 - SPONDYLOSIS W/O MYELOPATHY OR RADICULOPATHY, CERVICAL REGION (4) Recurrent falls Current Visit: No Status: Acute Code(s): R29.6 - REPEATED FALLS
[2018-10-26] MEDS: MOTRIN 400 MG PO SCH (17:50)
[2018-10-26] MEDS: Klonopin 0.5 MG PO PRN (18:43)
[2018-10-26] MEDS: TYLENOL 325 MG PO PRN (18:43)
[2018-10-26] MEDS: PROVENTIL COMMON CANISTER IH PRN (20:04)
--- NOTE | 2018-10-26 20:23 | XRAY ---
Indication: Headache. Frequent falls. Multiple contiguous axial images obtained through the head without contrast. Comparison: September 18, 2018. Stable age-appropriate global atrophy. No acute intracranial hemorrhage, abnormal extra-axial fluid collection, or mass effect. Fourth ventricle is midline without hydrocephalus. Bony calvarium intact. Visualized paranasal sinuses and mastoid air cells are clear. Impression: Stable atrophy. No new or acute intracranial abnormalities. Comment: Preliminary interpretation was made by [facility]. No critical discrepancy. CTDI 50.62
--- NOTE | 2018-10-26 20:26 | XRAY ---
Indication: Weakness. Frequent falls. Comparison: October 22, 2018. Portable chest demonstrates chronic right hemidiaphragm elevation. No focal infiltrate, consolidation, or large effusion. Heart is not enlarged. Bony thorax intact again with mild degenerative changes and old left 7 rib fracture. Impression: Stable nonacute chest with chronic features.
--- NOTE | 2018-10-26 20:37 | XRAY ---
Indication: Low back pain. Frequent falls. Multiple contiguous axial images obtained through the lumbar spine. Two-dimensional sagittal and coronal reformatted images obtained. Comparison: April 24, 2011. There is progressive worsening mild/moderate multilevel thoracolumbar degenerative spondylosis. New L2-L3 and L5-S1 degenerative vacuum disc phenomena including extrathecal air at the L5-S1 level. No acute fracture, subluxation, suspicious bony lesions, or spinal canal stenosis. Sagittal and coronal reformatted images again demonstrate normal lumbar lordosis with minimal levoscoliosis centered at L1-L2. The visualized noncontrasted soft tissues demonstrates small right effusion/atelectasis and mild scattered aortoiliac calcifications. Impression: 1. Progressive worsening multilevel degenerative spondylosis. Stable levoscoliosis. 2. Negative acute fracture/subluxation. 3. Incidental right lung base effusion/atelectasis and scattered arteriosclerotic calcifications. Comment: Preliminary interpretation was made by [facility]. No critical discrepancy. CTDI 149.32
[2018-10-26] MEDS ORDERED: Vibramycin 100 MG PO SCH (22:00)
[2018-10-26] MEDS ORDERED: Ambien 10 MG PO SCH ×2 (22:00)
[2018-10-26] MEDS: Ambien 5 MG Tablet PO SCH (22:43)
[2018-10-26] MEDS: ISOPTIN S.R. 240 MG PO SCH (22:44)
[2018-10-26] MEDS: Pepcid 20 MG PO SCH (22:44)
[2018-10-27] MEDS: MOTRIN 400 MG PO SCH ×3 (02:42→17:40)
[2018-10-27 05:01] LABS: Hematocrit 34.8 % (42-50); Hemoglobin 11.8 gm/dl (12.5-18.0); Mean Cell Volume 106.1 fl (78-100); Mean Corpuscular Hgb Concent. 33.9 g/dl (32-36); Mean Platelet Volume 9.3 fl (6-9.5); Platelet Count 200 K/mm3 (150-450); Red Blood Count 3.28 M/mm3 (4.1-5.6); Red Cell Distribution Width 12.6 % (11.5-14.0); White Blood Count 10.2 K/mm3 (4.0-10.5)
[2018-10-27 05:03] LABS: Mean Corpuscular Hemoglobin 35.9 pg (26-32)
[2018-10-27 05:11] LABS: ALBUMIN 2.8 g/dL (3.5-5.0); ALKALINE PHOSPHATASE 127 U/L (38-126); BLOOD UREA NITROGEN 16 mg/dL (9-20); CHLORIDE 109 mmol/L (98-107); Calcium 8.7 mg/dL (8.4-10.2); Carbon Dioxide 23 mmol/L (22-30); Creatinine 1 0.59 mg/dL (0.66-1.25); Glucose 123 mg/dL (74-106); Potassium 3.5 mmol/L (3.5-5.1); SGOT/AST 22 U/L (17-59); SGPT/ALT 41 U/L (0-50); SODIUM 142 mmol/L (137-145); Total Protein 5.8 g/dL (6.3-8.2)
[2018-10-27] MEDS ORDERED: VANCOCIN 1 GM VIAL*** 1 GM in Sodium Chloride 0.9% 250 ML 250 ML IV SCH (09:00)
[2018-10-27] MEDS: ENOXAPARIN SODIUM SQ SCH (09:25)
[2018-10-27] MEDS: NEURONTIN 300 MG PO SCH ×3 (09:25→21:30)
[2018-10-27] MEDS: Pepcid 20 MG PO SCH ×2 (09:25→21:30)
[2018-10-27] MEDS: Cyclobenzaprine 10 MG PO SCH ×3 (09:26→21:30)
[2018-10-27] MEDS: Protonix 40MG Tablet PO SCH (09:27)
[2018-10-27] MEDS: Mavik 2 MG PO SCH (09:27)
[2018-10-27] MEDS ORDERED: TRANDOLAPRIL 4 MG PO SCH (10:00)
[2018-10-27] MEDS: Sodium Chloride 0.9% 1000 ML 1,000 ML IV SCH ×2 (10:47→21:29)
--- NOTE | 2018-10-27 12:42 | PCM.NOTE ---
Date and Time: 10/27/18 1237 Subjective Assessment: doing ok, still very weak, positive for MRSA sepsis, also E Coli in urine, - Review of Systems Constitutional: Fever, Chills, Lethargy, Malaise, Weakness Eyes: No Symptoms Ears, Nose, & Throat: No Symptoms Respiratory: No Cough, No Short Of Breath Cardiac: No Chest Pain, No Edema, No Syncope Abdominal/Gastrointestinal: No Abdominal Pain, No Nausea, No Vomiting, No Diarrhea Genitourinary Symptoms: No Dysuria Musculoskeletal: No Back Pain, No Neck Pain Skin: No Rash Neurological: No Dizziness, No Focal Weakness, No Sensory Changes Psychological: No Symptoms Endocrine: No Symptoms Hematologic/Lymphatic: No Symptoms Immunological/Allergic: No Symptoms Objective Exam General Appearance: mild distress, alert Neurologic Exam: alert, oriented x 3, cooperative, normal mood/affect, nml cerebellar function, sensation nml, No motor deficits Skin Exam: normal color, warm, dry Eye Exam: PERRL, EOMI, eyes nml inspection Ears, Nose, Throat Exam: normal ENT inspection, pharynx normal, moist mucous membranes Neck Exam: normal inspection, non-tender, supple, full range of motion Respiratory Exam: normal breath sounds, lungs clear, No respiratory distress Cardiovascular Exam: regular rate/rhythm, normal heart sounds Gastrointestinal/Abdomen Exam: soft, No tenderness, No mass Extremity Exam: normal inspection, normal range of motion Back Exam: normal inspection, normal range of motion, No CVA tenderness, No vertebral tenderness Male Genitalia Exam: deferred Rectal Exam: deferred OBJECTIVE DATA Vital Signs: Vital Signs - 24 hr Temp Pulse Resp BP Pulse Ox 10/27/18 07:13 97.7 F 72 18 116/74 97 10/27/18 07:11 74 18 95 10/27/18 04:02 97.9 F 69 20 120/63 96 10/26/18 23:37 98.4 F 75 20 124/65 94 L 10/26/18 19:46 98.3 F 84 20 161/86 98 10/26/18 16:00 98.6 F 87 18 129/67 96 10/26/18 14:49 81 16 95 10/26/18 13:51 98.4 F 82 20 130/64 95 Oxygen-Last 24 hours O2 Percentage 2 Liters = 28% O2 Percentage 2 Liters = 28% O2 Percentage 2 Liters = 28% O2 Percentage 2 Liters = 28% O2 Percentage 2 Liters = 28% O2 Percentage 2 Liters = 28% Pain Assessment - Last Documented Pain Intensity 9 Pain Scale Used 0-10 Pain Scale Intake and Output: Intake & Output 10/25/18 10/26/18 10/27/18 10/28/18 11:59 11:59 11:59 11:59 Intake Total 2650 Output Total 3325 Balance -675 Weight 90.718 kg 96 kg Lab Results: Lab Results-Last 24 Hours 10/26/18 10/26/18 10/26/18 Range/Units 13:23 14:30 14:30 WBC (4.0-10.5) K/mm3 RBC (4.1-5.6) M/mm3 Hgb (12.5-18.0) gm/dl Hct (42-50) % MCV (78-100) fl MCH (26-32) pg MCHC (32-36) g/dl RDW (11.5-14.0) % Plt Count (150-450) K/mm3 MPV (6-9.5) fl Sodium (137-145) mmol/L Potassium (3.5-5.1) mmol/L Chloride (98-107) mmol/L Carbon Dioxide (22-30) mmol/L Anion Gap (5-15) MEQ/L BUN (9-20) mg/dL Creatinine (0.66-1.25) mg/dL Estimated GFR ML/MIN Glucose (74-106) mg/dL Calcium (8.4-10.2) mg/dL Total Bilirubin (0.2-1.3) mg/dL AST (17-59) U/L ALT (0-50) U/L Alkaline Phosphatase (38-126) U/L Troponin I < 0.012 (0.000-0.034) ng/mL Serum Total Protein (6.3-8.2) g/dL Albumin (3.5-5.0) g/dL Urine Color YELLOW (YELLOW) Urine Appearance CLEAR (CLEAR) Urine pH 7.0 (5-6) Ur Specific [place] 1.006 (1.005-1.025) Urine Protein NEGATIVE (Negative) Urine Ketones NEGATIVE (NEGATIVE) Urine Blood NEGATIVE (0-5) Benito/ul Urine Nitrite NEGATIVE (NEGATIVE) Urine Bilirubin NEGATIVE (NEGATIVE) Urine Urobilinogen 4 (0-1) mg/dL Ur Leukocyte Esterase NEGATIVE (NEGATIVE) Urine WBC (Auto) NONE (0-5) /HPF Urine RBC (Auto) NONE (0-2) /HPF U Epithel Cells (Auto) NONE (FEW) /HPF Urine Bacteria (Auto) NONE (NEGATIVE) /HPF Urine Mucus (Auto) SLIGHT (NEGATIVE) /HPF Urine Glucose NEGATIVE (NEGATIVE) mg/dL Urine Opiates Level NEGATIVE (NEGATIVE) Ur Methadone NEGATIVE (NEGATIVE) Urine Barbiturates NEGATIVE (NEGATIVE) Ur Phencyclidine (PCP) NEGATIVE (NEGATIVE) Urine Amphetamine NEGATIVE (NEGATIVE) U Benzodiazepine Level NEGATIVE (NEGATIVE) Urine Cocaine NEGATIVE (NEGATIVE) Urine Marijuana (THC) NEGATIVE (NEGATIVE) 10/26/18 10/26/18 10/26/18 Range/Units 16:18 19:24 22:53 WBC (4.0-10.5) K/mm3 RBC (4.1-5.6) M/mm3 Hgb (12.5-18.0) gm/dl Hct (42-50) % MCV (78-100) fl MCH (26-32) pg MCHC (32-36) g/dl RDW (11.5-14.0) % Plt Count (150-450) K/mm3 MPV (6-9.5) fl Sodium (137-145) mmol/L Potassium (3.5-5.1) mmol/L Chloride (98-107) mmol/L Carbon Dioxide (22-30) mmol/L Anion Gap (5-15) MEQ/L BUN (9-20) mg/dL Creatinine (0.66-1.25) mg/dL Estimated GFR ML/MIN Glucose (74-106) mg/dL Calcium (8.4-10.2) mg/dL Total Bilirubin (0.2-1.3) mg/dL AST (17-59) U/L ALT (0-50) U/L Alkaline Phosphatase (38-126) U/L Troponin I < 0.012 < 0.012 < 0.012 (0.000-0.034) ng/mL Serum Total Protein (6.3-8.2) g/dL Albumin (3.5-5.0) g/dL Urine Color (YELLOW) Urine Appearance (CLEAR) Urine pH (5-6) Ur Specific [place] (1.005-1.025) Urine Protein (Negative) Urine Ketones (NEGATIVE) Urine Blood (0-5) Benito/ul Urine Nitrite (NEGATIVE) Urine Bilirubin (NEGATIVE) Urine Urobilinogen (0-1) mg/dL Ur Leukocyte Esterase (NEGATIVE) Urine WBC (Auto) (0-5) /HPF Urine RBC (Auto) (0-2) /HPF U Epithel Cells (Auto) (FEW) /HPF Urine Bacteria (Auto) (NEGATIVE) /HPF Urine Mucus (Auto) (NEGATIVE) /HPF Urine Glucose (NEGATIVE) mg/dL Urine Opiates Level (NEGATIVE) Ur Methadone (NEGATIVE) Urine Barbiturates (NEGATIVE) Ur Phencyclidine (PCP) (NEGATIVE) Urine Amphetamine (NEGATIVE) U Benzodiazepine Level (NEGATIVE) Urine Cocaine (NEGATIVE) Urine Marijuana (THC) (NEGATIVE) 10/27/18 10/27/18 Range/Units 04:59 04:59 WBC 10.2 (4.0-10.5) K/mm3 RBC 3.28 L (4.1-5.6) M/mm3 Hgb 11.8 L (12.5-18.0) gm/dl Hct 34.8 L (42-50) % MCV 106.1 H (78-100) fl MCH 35.9 H (26-32) pg MCHC 33.9 (32-36) g/dl RDW 12.6 (11.5-14.0) % Plt Count 200 (150-450) K/mm3 MPV 9.3 (6-9.5) fl Sodium 142 (137-145) mmol/L Potassium 3.5 (3.5-5.1) mmol/L Chloride 109 H (98-107) mmol/L Carbon Dioxide 23 (22-30) mmol/L Anion Gap 13.0 (5-15) MEQ/L BUN 16 (9-20) mg/dL Creatinine 0.59 L (0.66-1.25) mg/dL Estimated GFR > 60.0 ML/MIN Glucose 123 H (74-106) mg/dL Calcium 8.7 (8.4-10.2) mg/dL Total Bilirubin 1.60 H (0.2-1.3) mg/dL AST 22 (17-59) U/L ALT 41 (0-50) U/L Alkaline Phosphatase 127 H (38-126) U/L Troponin I (0.000-0.034) ng/mL Serum Total Protein 5.8 L (6.3-8.2) g/dL Albumin 2.8 L (3.5-5.0) g/dL Urine Color (YELLOW) Urine Appearance (CLEAR) Urine pH (5-6) Ur Specific [place] (1.005-1.025) Urine Protein (Negative) Urine Ketones (NEGATIVE) Urine Blood (0-5) Benito/ul Urine Nitrite (NEGATIVE) Urine Bilirubin (NEGATIVE) Urine Urobilinogen (0-1) mg/dL Ur Leukocyte Esterase (NEGATIVE) Urine WBC (Auto) (0-5) /HPF Urine RBC (Auto) (0-2) /HPF U Epithel Cells (Auto) (FEW) /HPF Urine Bacteria (Auto) (NEGATIVE) /HPF Urine Mucus (Auto) (NEGATIVE) /HPF Urine Glucose (NEGATIVE) mg/dL Urine Opiates Level (NEGATIVE) Ur Methadone (NEGATIVE) Urine Barbiturates (NEGATIVE) Ur Phencyclidine (PCP) (NEGATIVE) Urine Amphetamine (NEGATIVE) U Benzodiazepine Level (NEGATIVE) Urine Cocaine (NEGATIVE) Urine Marijuana (THC) (NEGATIVE) Radiology Exams: Radiology Procedures Category Date Time Status CHEST 1 VIEW (PORTABLE) Stat Exams 10/26/18 11:01 Completed HEAD WITHOUT CONTRAST [CT] Stat Exams 10/26/18 10:22 Completed LUMBAR SPINE W/O [CT] Stat Exams 10/26/18 10:23 Completed Assessment/Plan (1) Bacteremia due to Staphylococcus aureus Current Visit: Yes Status: Acute Assessment & Plan: on vancomycin, Code(s): R78.81 - BACTEREMIA (2) UTI (urinary tract infection) due to Enterococcus Current Visit: Yes Status: Acute Assessment & Plan: urine culture positive for E Coli Code(s): N39.0 - URINARY TRACT INFECTION, SITE NOT SPECIFIED; B95.2 - ENTEROCOCCUS THE CAUSE OF DISEASES CLASSIFIED ELSEWHERE (3) Degenerative disc disease at L5-S1 level Current Visit: Yes Status: Acute Code(s): M51.36 - OTHER INTERVERTEBRAL DISC DEGENERATION, LUMBAR REGION (4) Recurrent falls while walking Current Visit: Yes Status: Acute Code(s): R29.6 - REPEATED FALLS (5) HTN (hypertension) Current Visit: Yes Status: Chronic Qualifiers: Code(s): I10 - ESSENTIAL (PRIMARY) HYPERTENSION (6) CAD (coronary artery disease) Current Visit: No Status: Chronic Qualifiers: Coronary Disease-Associated Artery/Lesion type: [place] artery [place] vs. transplanted heart: [place] heart Associated angina: without angina Qualified Code(s): I25.10 - Atherosclerotic heart disease of [place] coronary artery without angina pectoris Code(s): I25.10 - ATHSCL HEART DISEASE OF [place] CORONARY ARTERY W/O ANG PCTRS (7) COPD (chronic obstructive pulmonary disease) Current Visit: No Status: Chronic Qualifiers: Emphysema type: unspecified
[2018-10-27] MEDS: Levofloxacin 500MG/100ML D5W 500 MG/100 ML BAG IV SCH (12:56)
[2018-10-27] MEDS: TYLENOL 325 MG PO PRN (21:29)
[2018-10-27] MEDS: Ambien 5 MG Tablet PO SCH (21:30)
[2018-10-27] MEDS: Klonopin 0.5 MG PO PRN (21:30)
[2018-10-27] MEDS: ISOPTIN S.R. 240 MG PO SCH (21:30)
[2018-10-28] MEDS: PROVENTIL COMMON CANISTER IH PRN (00:07)
[2018-10-28] MEDS: MOTRIN 400 MG PO SCH ×3 (01:07→17:48)
[2018-10-28] MEDS: Sodium Chloride 0.9% 1000 ML 1,000 ML IV SCH ×2 (08:20→19:59)
[2018-10-28] MEDS: Mavik 2 MG PO SCH (09:15)
[2018-10-28] MEDS: Pepcid 20 MG PO SCH ×2 (09:16→21:25)
[2018-10-28] MEDS: Cyclobenzaprine 10 MG PO SCH ×3 (09:16→21:25)
[2018-10-28] MEDS: ENOXAPARIN SODIUM SQ SCH (09:16)
[2018-10-28] MEDS: NEURONTIN 300 MG PO SCH ×3 (09:18→21:24)
[2018-10-28] MEDS: Protonix 40MG Tablet PO SCH (09:18)
[2018-10-28] MEDS: Levofloxacin 500MG/100ML D5W 500 MG/100 ML BAG IV SCH (09:18)
--- NOTE | 2018-10-28 12:10 | PCM.NOTE ---
Date and Time: 10/28/18 1208 Subjective Assessment: doing ok - Review of Systems Constitutional: No Fever, No Chills Eyes: No Symptoms Ears, Nose, & Throat: No Symptoms Respiratory: No Cough, No Short Of Breath Cardiac: No Chest Pain, No Edema, No Syncope Abdominal/Gastrointestinal: No Abdominal Pain, No Nausea, No Vomiting, No Diarrhea Genitourinary Symptoms: No Dysuria Musculoskeletal: No Back Pain, No Neck Pain Skin: No Rash Neurological: No Dizziness, No Focal Weakness, No Sensory Changes Psychological: No Symptoms Endocrine: No Symptoms Hematologic/Lymphatic: No Symptoms Immunological/Allergic: No Symptoms Objective Exam General Appearance: no apparent distress, alert Neurologic Exam: alert, oriented x 3, cooperative, normal mood/affect, nml cerebellar function, sensation nml, No motor deficits Skin Exam: normal color, warm, dry Eye Exam: PERRL, EOMI, eyes nml inspection Ears, Nose, Throat Exam: normal ENT inspection, pharynx normal, moist mucous membranes Neck Exam: normal inspection, non-tender, supple, full range of motion Respiratory Exam: normal breath sounds, lungs clear, No respiratory distress Cardiovascular Exam: regular rate/rhythm, normal heart sounds Gastrointestinal/Abdomen Exam: soft, No tenderness, No mass Extremity Exam: normal inspection, normal range of motion Back Exam: normal inspection, normal range of motion, No CVA tenderness, No vertebral tenderness Male Genitalia Exam: deferred Rectal Exam: deferred OBJECTIVE DATA Vital Signs: Vital Signs - 24 hr Temp Pulse Resp BP Pulse Ox 10/28/18 11:43 98.2 F 71 18 139/74 93 L 10/28/18 07:15 68 18 92 L 10/28/18 06:57 98.1 F 63 18 120/63 94 L 10/28/18 03:50 97.4 F 66 22 92/57 94 L 10/28/18 00:08 76 18 97 10/28/18 00:00 97.9 F 81 24 129/60 94 L 10/27/18 19:55 98.7 F 85 28 H 130/66 91 L 10/27/18 16:00 98.9 F 83 18 127/75 98 Oxygen-Last 24 hours O2 Percentage 2 Liters = 28% O2 Percentage 2 Liters = 28% O2 Percentage 2 Liters = 28% Pain Assessment - Last Documented Pain Intensity 6 Pain Scale Used 0-10 Pain Scale Intake and Output: Intake & Output 10/26/18 10/27/18 10/28/18 10/29/18 11:59 11:59 11:59 11:59 Intake Total 2650 5053 Output Total 3323 4584 Balance -675 878 Weight 90.718 kg 96 kg Assessment/Plan (1) Bacteremia due to Staphylococcus aureus Current Visit: Yes Status: Acute Assessment & Plan: improving Code(s): R78.81 - BACTEREMIA (2) UTI (urinary tract infection) due to Enterococcus Current Visit: Yes Status: Acute Code(s): N39.0 - URINARY TRACT INFECTION, SITE NOT SPECIFIED; B95.2 - ENTEROCOCCUS THE CAUSE OF DISEASES CLASSIFIED ELSEWHERE (3) Degenerative disc disease at L5-S1 level Current Visit: Yes Status: Acute Code(s): M51.36 - OTHER INTERVERTEBRAL DISC DEGENERATION, LUMBAR REGION (4) Recurrent falls while walking Current Visit: Yes Status: Acute Code(s): R29.6 - REPEATED FALLS (5) HTN (hypertension) Current Visit: Yes Status: Chronic Qualifiers: Code(s): I10 - ESSENTIAL (PRIMARY) HYPERTENSION (6) CAD (coronary artery disease) Current Visit: No Status: Chronic Qualifiers: Coronary Disease-Associated Artery/Lesion type: [place] artery [place] vs. transplanted heart: [place] heart Associated angina: without angina Qualified Code(s): I25.10 - Atherosclerotic heart disease of [place] coronary artery without angina pectoris Code(s): I25.10 - ATHSCL HEART DISEASE OF [place] CORONARY ARTERY W/O ANG PCTRS (7) COPD (chronic obstructive pulmonary disease) Current Visit: No Status: Chronic Qualifiers: Emphysema type: unspecified
[2018-10-28] MEDS: TYLENOL 325 MG PO PRN ×2 (16:54→21:24)
[2018-10-28] MEDS: Klonopin 0.5 MG PO PRN (19:59)
[2018-10-28] MEDS: ISOPTIN S.R. 240 MG PO SCH (21:25)
[2018-10-28] MEDS: Ambien 5 MG Tablet PO SCH (21:26)
[2018-10-29] MEDS: MOTRIN 400 MG PO SCH ×3 (02:45→17:25)
[2018-10-29] MEDS: Sodium Chloride 0.9% 1000 ML 1,000 ML IV SCH ×2 (07:29→13:44)
[2018-10-29] MEDS ORDERED: Valium 5 MG PO PRN (08:53)
[2018-10-29] MEDS: Levofloxacin 500MG/100ML D5W 500 MG/100 ML BAG IV SCH (09:21)
[2018-10-29] MEDS: ENOXAPARIN SODIUM SQ SCH (09:21)
[2018-10-29] MEDS: Cyclobenzaprine 10 MG PO SCH ×3 (09:22→21:40)
[2018-10-29] MEDS: Mavik 2 MG PO SCH (09:22)
[2018-10-29] MEDS: Protonix 40MG Tablet PO SCH (09:23)
[2018-10-29] MEDS: Pepcid 20 MG PO SCH ×2 (09:23→21:40)
[2018-10-29] MEDS: NEURONTIN 300 MG PO SCH ×3 (09:23→21:40)
[2018-10-29 10:23] LABS: Hematocrit 33.7 % (42-50); Hemoglobin 11.4 gm/dl (12.5-18.0); Mean Cell Volume 107.3 fl (78-100); Mean Corpuscular Hemoglobin 36.3 pg (26-32); Mean Corpuscular Hgb Concent. 33.8 g/dl (32-36); Platelet Count 216 K/mm3 (150-450); Red Blood Count 3.14 M/mm3 (4.1-5.6); Red Cell Distribution Width 12.8 % (11.5-14.0); White Blood Count 7.9 K/mm3 (4.0-10.5)
[2018-10-29 11:19] LABS: ALBUMIN 2.6 g/dL (3.5-5.0); ALKALINE PHOSPHATASE 121 U/L (38-126); ANION GAP 10.4 MEQ/L (5-15); BLOOD UREA NITROGEN 10 mg/dL (9-20); CHLORIDE 109 mmol/L (98-107); Calcium 8.3 mg/dL (8.4-10.2); Carbon Dioxide 24 mmol/L (22-30); Creatinine 1 0.61 mg/dL (0.66-1.25); Glucose 227 mg/dL (74-106); Potassium 3.6 mmol/L (3.5-5.1); SGOT/AST 21 U/L (17-59); SGPT/ALT 24 U/L (0-50); SODIUM 139 mmol/L (137-145); Total Protein 5.7 g/dL (6.3-8.2)
[2018-10-29] MEDS: Sodium Chloride 0.9% 10 ML FLUSH Syringe IV SCH ×2 (14:41→21:41)
--- NOTE | 2018-10-29 14:44 | PCM.NOTE ---
Date and Time: 10/29/18 1438 Subjective Assessment: has new tunneling wound on elbow right side. Growing MRSA, on levaquin, - Review of Systems Constitutional: Weakness, No Fever, No Chills Eyes: No Symptoms Ears, Nose, & Throat: No Symptoms Respiratory: No Cough, No Short Of Breath Cardiac: No Chest Pain, No Edema, No Syncope Abdominal/Gastrointestinal: No Abdominal Pain, No Nausea, No Vomiting, No Diarrhea Genitourinary Symptoms: No Dysuria Musculoskeletal: No Back Pain, No Neck Pain Skin: Cellulitis, Induration, Other (2.6 cms tunneling wound growing MRSA), No Rash Neurological: No Dizziness, No Focal Weakness, No Sensory Changes Psychological: No Symptoms Endocrine: No Symptoms Hematologic/Lymphatic: No Symptoms Immunological/Allergic: No Symptoms Objective Exam General Appearance: no apparent distress, alert Neurologic Exam: alert, oriented x 3, cooperative, normal mood/affect, nml cerebellar function, sensation nml, No motor deficits Skin Exam: normal color, warm, dry Wound Assessment: Skin/Wound Assessment Wound/Incision Assessment Start: 10/28/18 17: 32 Text: Status: Active Freq: Q8H Protocol: Document 10/29/18 11:59 (Rec: 10/29/18 11:59 [id number]) Wound/Incision Assessment Right Elbow Wound Assessment Shift Assessment Wound Type Laceration Dressing Status Changed Drainage Amount Minimal Drainage Description Purulent Drainage Odor None/Absent General Appearance Unapproximated Surrounding Tissue Bright Red Topical Solution/Irrigant Saline Irrigant Packing Type Gauze Packing Strips Comment Read PT's notes.Dressing cdi Wound Photo Photo Taken Yes Date: 10/28/18 Time: 14:00 Distance from Wound: bedside. Eye Exam: PERRL, EOMI, eyes nml inspection Ears, Nose, Throat Exam: normal ENT inspection, pharynx normal, moist mucous membranes Neck Exam: normal inspection, non-tender, supple, full range of motion Respiratory Exam: normal breath sounds, lungs clear, No respiratory distress Cardiovascular Exam: regular rate/rhythm, normal heart sounds Gastrointestinal/Abdomen Exam: soft, No tenderness, No mass Extremity Exam: normal inspection, normal range of motion, inflammation, swelling Back Exam: normal inspection, normal range of motion, No CVA tenderness, No vertebral tenderness Male Genitalia Exam: deferred Rectal Exam: deferred OBJECTIVE DATA Vital Signs: Vital Signs - 24 hr Temp Pulse Resp BP Pulse Ox 10/29/18 12:00 98.6 F 80 17 159/77 91 L 10/29/18 07:22 98.1 F 65 18 121/62 93 L 10/29/18 04:25 97.9 F 78 21 123/67 93 L 10/29/18 00:01 98.3 F 78 23 130/69 94 L 10/28/18 19:16 94 L 10/28/18 19:12 98.3 F 84 20 148/72 93 L 10/28/18 15:59 98.3 F 80 18 138/80 94 L Oxygen-Last 24 hours O2 Percentage 2 Liters = 28% O2 Percentage 2 Liters = 28% O2 Percentage 2 Liters = 28% Pain Assessment - Last Documented Pain Intensity 10 Pain Scale Used 0-10 Pain Scale Intake and Output: Intake & Output 10/27/18 10/28/18 10/29/18 10/30/18 11:59 11:59 11:59 11:59 Intake Total 2650 5053 4027 480 Output Total 3325 4175 2730 350 Balance -639 229 9812 130 Weight 96 kg Lab Results: Lab Results-Last 24 Hours 10/29/18 10/29/18 Range/Units 10:10 10:10 WBC 7.9 (4.0-10.5) K/mm3 RBC 3.14 L (4.1-5.6) M/mm3 Hgb 11.4 L (12.5-18.0) gm/dl Hct 33.7 L (42-50) % MCV 107.3 H (78-100) fl MCH 36.3 H (26-32) pg MCHC 33.8 (32-36) g/dl RDW 12.8 (11.5-14.0) % Plt Count 216 (150-450) K/mm3 MPV 9.0 (6-9.5) fl Sodium 139 (137-145) mmol/L Potassium 3.6 (3.5-5.1) mmol/L Chloride 109 H (98-107) mmol/L Carbon Dioxide 24 (22-30) mmol/L Anion Gap 10.4 (5-15) MEQ/L BUN 10 (9-20) mg/dL Creatinine 0.61 L (0.66-1.25) mg/dL Estimated GFR > 60.0 ML/MIN Glucose 227 H (74-106) mg/dL Calcium 8.3 L (8.4-10.2) mg/dL Total Bilirubin 0.70 (0.2-1.3) mg/dL AST 21 (17-59) U/L ALT 24 (0-50) U/L Alkaline Phosphatase 121 (38-126) U/L Serum Total Protein 5.7 L (6.3-8.2) g/dL Albumin 2.6 L (3.5-5.0) g/dL Radiology Exams: Radiology Procedures Category Date Time Status MRI L-SPINE WITH CONTRAST [MRI] Routine Exams 10/29/18 08:49 Taken Multi-Disciplinary Progress Notes: Multi-Disciplinary Progress Notes 10/28/18 17:00 Physical Therapy Note by Stacia Quiñonez PATIENT WAS SEEN BY PHYSICAL THERAPY AFTER LUNCH FOR ADL/GAIT ACTIVITIES. PATIENT AMBULATED 50' IN ROOM (DECLINED WALKING IN HALLWAY) WITH ROLLATOR AND SBA OF 1. REQUIRED VERBAL CUES FOR SAFETY WITH TURNING TO SIT TO COMPLETE TURN AND PROPER HAND PLACEMENT. SAT ON EDGE OF BED AND PERFORMED LE ROM/ STRENGTHENING EXERCISES. THERAPIST THEN PERFORMED AA/PROM OF RIGHT SHOULDER. WHILE PERFORMING ROM TO RIGHT SHOULDER NOTED DRAINAGE FROM OPEN AREA RIGHT ELBOW. CONFERRED WITH NURSING STAFF WHO STATES AREA HAD BLACK ESCHAR ON ARRIVAL TO FACILITY AND HAS BEEN DRESSED WITH TEGADERM. PER NURSE TEGADERM CAME OFF THIS MORNING AND AREA WAS WHITE AND SOFT BUT NO OPEN AREA. WOUND STATUS: OPENING OVER OLECRANON RIGHT ELBOW 0.4 X 0.2 CM. WITH THICK YELLOW DRAINAGE. NO ODOR. COTTON TIP APPLICATOR WAS OBTAINED AND WOUND WAS PROBED WITH TUNNEL FROM 10 - 12 O'CLOCK WITH DEPTH OF 2.6 CM. ORDER OBTAINED FOR CULTURE WHICH WAS OBTAINED. WOUND WAS PACKED WITH NU-GAUZE, COVERED WITH OPTIFOAM, AND APPLIED SIZE E TUBIGRIP FOR LIGHT COMPRESSION. NURSING INFORMED OF DRESSING APPLICATION. PATIENT DENIES ANY PAIN IN ELBOW. Initialized on 10/28/18 17:00 - END OF NOTE Assessment/Plan (1) Bacteremia due to Staphylococcus aureus Current Visit: Yes Status: Acute Code(s): R78.81 - BACTEREMIA (2) UTI (urinary tract infection) due to Enterococcus Current Visit: Yes Status: Acute Code(s): N39.0 - URINARY TRACT INFECTION, SITE NOT SPECIFIED; B95.2 - ENTEROCOCCUS THE CAUSE OF DISEASES CLASSIFIED ELSEWHERE (3) Degenerative disc disease at L5-S1 level Current Visit: Yes Status: Acute Code(s): M51.36 - OTHER INTERVERTEBRAL DISC DEGENERATION, LUMBAR REGION (4) Recurrent falls while walking Current Visit: Yes Status: Acute Code(s): R29.6 - REPEATED FALLS (5) HTN (hypertension) Current Visit: Yes Status: Chronic Qualifiers: Code(s): I10 - ESSENTIAL (PRIMARY) HYPERTENSION (6) CAD (coronary artery disease) Current Visit: No Status: Chronic Qualifiers: Coronary Disease-Associated Artery/Lesion type: [place] artery [place] vs. transplanted heart: [place] heart Associated angina: without angina Qualified Code(s): I25.10 - Atherosclerotic heart disease of [place] coronary artery without angina pectoris Code(s): I25.10 - ATHSCL HEART DISEASE OF [place] CORONARY ARTERY W/O ANG PCTRS (7) COPD (chronic obstructive pulmonary disease) Current Visit: No Status: Chronic Qualifiers: Emphysema type: unspecified
--- NOTE | 2018-10-29 15:02 | XRAY ---
Indication: Low back pain radiating down leg, right greater than left. Lumbar surgery in 2000. Sagittal and axial MRI lumbar spine performed using pre-and post T1 and T2 weighted sequences. 18 cc Magnevist contrast use. Comparison: May 10, 2011. Sagittal images again demonstrates normal lumbar lordosis with mild multilevel degenerative disc desiccation signal. There remains minimal L2-L3 and L5-S1 disc space narrowing. New L2-L3 opposing endplate degenerative discogenic signal changes, [place] type I. Also new L1-L2 and L5-S1 opposing endplate degenerative discogenic signal changes, [place] type II. No acute fracture, subluxation, or abnormal bone marrow signal. Conus medullaris again terminates at the L1-L2 level. Sagittal images through the T12-L2 levels again demonstrates very minimal L1-L2 broad-based disc bulge without spinal canal or foraminal compromise. T12-L1 level remains unremarkable. Axial images at the L2-L3 level demonstrates worsening mild annular disc bulge again slightly effacing the thecal sac. Mean AP thecal sac diameter is now 6-7 mm. Annular disc bulge also worsens bilateral foraminal stenosis but no exiting nerve root impingement.. Stable mild bilateral degenerative facet and ligamentum flavum hypertrophy. At the L3-L4 level, there is no disc herniation, spinal canal, or foraminal stenosis. Stable mild left degenerative facet and ligamentum flavum hypertrophy. At the L4-L5 level, there remains minimal annular disc bulge again greater towards the left producing left foraminal stenosis and slight impingement of the exiting left L4 nerve root. No central disc herniation or canal stenosis. Stable mild degenerative facet and ligament flavum hypertrophy again left greater than right. At the L5-S1 level, there is again right pinhole laminectomy with enhancing scar tissue. New 6 x 9 x 9 mm right paracentral subligamentous disc herniation. Disc material extends posteriorly occupying the right epidural space and effaces the more inferior right S1 nerve root.. Remaining disc again demonstrates mild annular disc bulge with subsequent foraminal stenosis, again right greater than left. Stable impingement of the exiting right L5 nerve root. Impression: 1. New L5-S1 right paracentral subligamentous disc herniation as detailed. 2. Stable right L5-S1 pinhole laminectomy with enhancing scar tissue. 3. Again multilevel degenerative disc disease progressively worsened at the L2-L3 level with new spinal canal and bilateral foraminal stenosis.
[2018-10-29] MEDS: Voltaren GEL TOP PRN (19:46)
[2018-10-29] MEDS: TYLENOL 325 MG PO PRN (19:46)
[2018-10-29] MEDS: ISOPTIN S.R. 240 MG PO SCH (21:39)
[2018-10-29] MEDS: Ambien 5 MG Tablet PO SCH (21:39)
[2018-10-30] MEDS: MOTRIN 400 MG PO SCH ×3 (01:49→18:52)
[2018-10-30] MEDS: Klonopin 0.5 MG PO PRN ×2 (03:53→16:37)
[2018-10-30] MEDS: Sodium Chloride 0.9% 10 ML FLUSH Syringe IV SCH ×3 (04:58→22:56)
[2018-10-30] MEDS: Voltaren GEL TOP PRN (04:59)
--- NOTE | 2018-10-30 08:55 | PCM.NOTE ---
Date and Time: 10/30/18 0849 Subjective Assessment: Pt was supposed to go to [facility] yesterday for rehab but they were unable to accept him. Today he is being evaluated for [facility], but he tells me "I'm not sure I want to go somewhere that I don't know." No pain in the elbow unless he hits it on something. Overnight he was disoriented for the first time since his admission - tried to walk to the door to go to the gas station to get a drink. Objective Exam General Appearance: no apparent distress, alert Neurologic Exam: oriented x 3, cooperative Skin Exam: normal color, warm, dry, No rash Wound Assessment: Skin/Wound Assessment Wound/Incision Assessment Start: 10/28/18 17: 32 Text: Status: Active Freq: Q8H Protocol: Document 10/30/18 04:00 EG (Rec: 10/30/18 05:02 EG [id number]) Wound/Incision Assessment Right Elbow Wound Assessment Shift Assessment Wound Type Laceration Dressing Status Changed Drainage Amount Minimal Drainage Description Purulent Drainage Odor None/Absent General Appearance Unapproximated Surrounding Tissue Bright Red Topical Solution/Irrigant Saline Irrigant Packing Type Gauze Packing Strips Comment Read PT's notes.Drsg was changed on day shift per PT. Dressing CDI. Wound Photo Photo Taken Yes Date: 10/28/18 Time: 14:00 Distance from Wound: bedside. Ears, Nose, Throat Exam: moist mucous membranes Neck Exam: normal inspection Respiratory Exam: normal breath sounds, lungs clear, No crackles/rales, No rhonchi, No wheezing Cardiovascular Exam: regular rate/rhythm, normal heart sounds, No murmur Extremity Exam: other (RUE is wrapped) OBJECTIVE DATA Vital Signs: Vital Signs - 24 hr Temp Pulse Resp BP Pulse Ox 10/30/18 07:42 97.8 F 69 18 121/59 92 L 10/30/18 06:57 92 L 10/30/18 04:00 98.3 F 81 18 138/68 92 L 10/30/18 00:00 98.5 F 80 17 133/71 94 L 10/29/18 19:44 97.9 F 83 18 146/69 95 10/29/18 19:00 82 16 96 10/29/18 16:19 75 16 95 10/29/18 16:00 98.0 F 70 18 128/73 91 L 10/29/18 12:00 98.6 F 80 17 159/77 91 L Oxygen-Last 24 hours O2 Percentage 2 Liters = 28% Pain Assessment - Last Documented Pain Intensity 8 Pain Scale Used 0-10 Pain Scale Intake and Output: Intake & Output 10/27/18 10/28/18 10/29/18 10/30/18 11:59 11:59 11:59 11:59 Intake Total 2650 5053 4027 1800 Output Total 3324 6179 2730 550 Balance -990 179 0287 1250 Weight 96 kg Lab Results: Lab Results-Last 24 Hours 10/29/18 10/29/18 Range/Units 10:10 10:10 WBC 7.9 (4.0-10.5) K/mm3 RBC 3.14 L (4.1-5.6) M/mm3 Hgb 11.4 L (12.5-18.0) gm/dl Hct 33.7 L (42-50) % MCV 107.3 H (78-100) fl MCH 36.3 H (26-32) pg MCHC 33.8 (32-36) g/dl RDW 12.8 (11.5-14.0) % Plt Count 216 (150-450) K/mm3 MPV 9.0 (6-9.5) fl Sodium 139 (137-145) mmol/L Potassium 3.6 (3.5-5.1) mmol/L Chloride 109 H (98-107) mmol/L Carbon Dioxide 24 (22-30) mmol/L Anion Gap 10.4 (5-15) MEQ/L BUN 10 (9-20) mg/dL Creatinine 0.61 L (0.66-1.25) mg/dL Estimated GFR > 60.0 ML/MIN Glucose 227 H (74-106) mg/dL Calcium 8.3 L (8.4-10.2) mg/dL Total Bilirubin 0.70 (0.2-1.3) mg/dL AST 21 (17-59) U/L ALT 24 (0-50) U/L Alkaline Phosphatase 121 (38-126) U/L Serum Total Protein 5.7 L (6.3-8.2) g/dL Albumin 2.6 L (3.5-5.0) g/dL Radiology Exams: Radiology Procedures Category Date Time Status MRI L-SPINE WITH CONTRAST [MRI] Routine Exams 10/29/18 08:49 Completed Multi-Disciplinary Progress Notes: Multi-Disciplinary Progress Notes 10/29/18 16:23 Case Management Note by Amira Lemon REFERRAL FAXED TO [facility] AT THIS TIME. [phone]. Initialized on 10/29/18 16:23 - END OF NOTE 10/29/18 16:14 Case Management Note by Amira Lemon CALL FROM PATRICIA AT [facility], REPORTS THAT THEY RECEIVED APPROVAL FROM PT'S INSURANCE, BUT THEY HAVE DECIDED NOT TO TAKE HIM A PATIENT. WILL MAKE REFERRAL TO [facility]. Initialized on 10/29/18 16:14 - END OF NOTE 10/29/18 16:02 Physical Therapy Note by Stacia Quiñonez PATIENT STATES HE IS SORE FROM HAVING TO LAY FLAT FOR THE MRI THIS MORNING. STATES RIGHT LEG CONTINUES TO FEEL NUMB AT TIMES AND HAS PAIN IN LOWER LEG. PATIENT STATES HE HAS BEEN UP IN THE HALLWAY WALKING A COUPLE OF TIMES TODAY SO DOES NOT WANT TO WALK WITH THERAPY. PERFORMED LOWER EXTREMITY EXERCISES SITTING ON EDGE OF BED AND SUPINE. NOTING DIFFICULTY WITH LEFT LOWER EXTREMITY ACTIVE RANGE - DENIES ANY PAIN BUT UNABLE TO DO HEEL SLIDE OR SLR WITHOUT ASSIST. TOLERATED 10 REPS OF SITTING KNEE EXTENSION, SITTING HIP FLEXION (MINIMAL MOTION LEFT), SUPINE QUAD SETS, HEEL SLIDES (AA ON LEFT), HIP ABDUCTION/ADDUCTION, AND GLUT SETS. PATIENT REQUIRED ASSIST WITH LEFT LOWER EXTREMITY INTO BED WITH SIT TO SUPINE TRANSFER. Initialized on 10/29/18 16:02 - END OF NOTE 10/29/18 14:40 (created 10/29/18 14:58) Case Management Note by Amira Lemon ROUNDED WITH DR. TINEO, PLAN TO SEND PT TO [facility] SOON INSURANCE APPROVES. DR. TINEO DID THE PEER TO PEER REVIEW PER INSURANCE REQUEST AT THIS TIME. DR. TINEO REPORTS THAT THE INSURANCE PHYSICIAN REPORTS THAT THEY WILL APPROVE REHAB STAY FOR WOUND CARE, IV ABX, AND P.T./O.T. Initialized on 10/29/18 14:58 - END OF NOTE Assessment/Plan (1) Bacteremia due to Staphylococcus aureus Current Visit: Yes Status: Acute Assessment & Plan: He is currently on vancomycin, day #7 today. He is supposed to go to [facility] to complete 7d of IV levaquin. Code(s): R78.81 - BACTEREMIA (2) Cellulitis of right elbow Current Visit: Yes Status: Acute Assessment & Plan: There is some tunneling of the wound apparently. Code(s): L03.113 - CELLULITIS OF RIGHT UPPER LIMB (3) Degenerative disc disease at L5-S1 level Current Visit: Yes Status: Chronic Code(s): M51.36 - OTHER INTERVERTEBRAL DISC DEGENERATION, LUMBAR REGION (4) Generalized weakness Current Visit: Yes Status: Acute Assessment & Plan: worsened since CVA recently. TO [facility] for rehab. He had a large fall prior to this admission and is at high risk for subsequent falls. Code(s): R53.1 - WEAKNESS
[2018-10-30] MEDS: Cyclobenzaprine 10 MG PO SCH ×3 (09:27→22:55)
[2018-10-30] MEDS: NEURONTIN 300 MG PO SCH ×3 (09:28→22:56)
[2018-10-30] MEDS: Protonix 40MG Tablet PO SCH (09:29)
[2018-10-30] MEDS: Mavik 2 MG PO SCH (09:29)
[2018-10-30] MEDS: ENOXAPARIN SODIUM SQ SCH (09:29)
[2018-10-30] MEDS: Pepcid 20 MG PO SCH ×2 (09:29→22:56)
[2018-10-30] MEDS: Levofloxacin 500MG/100ML D5W 500 MG/100 ML BAG IV SCH (09:56)
[2018-10-30] MEDS: TYLENOL 325 MG PO PRN (16:37)
[2018-10-30] MEDS ORDERED: NICODERM CQ 14 MG TOP SCH (22:00)
[2018-10-30] MEDS: ISOPTIN S.R. 240 MG PO SCH (22:55)
[2018-10-30] MEDS: Ambien 5 MG Tablet PO SCH (22:55)
[2018-10-30] MEDS: Mucinex 600MG ER Tabs PO SCH (22:56)
[2018-10-31] MEDS: MOTRIN 400 MG PO SCH ×2 (02:27→08:57)
[2018-10-31] MEDS: Klonopin 0.5 MG PO PRN (02:27)
[2018-10-31] MEDS: Sodium Chloride 0.9% 10 ML FLUSH Syringe IV SCH (06:34)
[2018-10-31] MEDS: Cyclobenzaprine 10 MG PO SCH (08:55)
[2018-10-31] MEDS: NEURONTIN 300 MG PO SCH (08:55)
[2018-10-31] MEDS: Pepcid 20 MG PO SCH (08:55)
[2018-10-31] MEDS: Mucinex 600MG ER Tabs PO SCH (08:56)
[2018-10-31] MEDS: Mavik 2 MG PO SCH (08:56)
[2018-10-31] MEDS: Protonix 40MG Tablet PO SCH (08:56)
[2018-10-31] MEDS: ENOXAPARIN SODIUM SQ SCH (09:00)
[2018-10-31] MEDS: Levofloxacin 500MG/100ML D5W 500 MG/100 ML BAG IV SCH (09:00)
[2018-10-31 11:54] VITALS: BP 147/75; PULSE 71; O2SAT 93
[2018-10-31] MEDS: TYLENOL 325 MG PO PRN (12:13)
--- NOTE | 2018-10-31 16:06 | PCM.DS ---
Discharge Summary Date of Admission: 10/26/18 13:16 Admitting Physician: TODD RODAS Primary Care Provider: DIMAS TINEO Allergies Allergies No Known Drug Allergies Allergy (Verified 10/26/18 11:29) Hospital Summary - Hospital Course Hospital Course: Pt is a 68 yo male pt of Dr. Tineo with HTN who was admitted through ER with weakness and a fall. He apparently had a TIA 4-6 wks ago. Has been falling frequently; was apparently on the floor for about 5 hours. He was thought initially to have a UTI but final UCx was negative. He has a woundon the R elbow which was found to have tunneling; when cultured grew S. aureas, not MRSA. He has been treated with IV vancomycin and after discharge will receive IV levaquin x 7d. On admission, his CT head was non acute. Lumbar MRI with new disc herniation. Today his only issue is R shoulder pain which is chronic s/p fall about 6 yrs ago. Pierre po well. He will go to [facility] for rehab, wound care, and IV antibiotics. - Vitals & Intake/Output Vital Signs: Vital Signs Temperature 98.0 F 10/31/18 11:53 Pulse Rate 71 10/31/18 11:53 Respiratory Rate 18 10/31/18 11:53 Blood Pressure 147/75 10/31/18 11:53 O2 Sat by Pulse Oximetry 93 L 10/31/18 11:53 Oxygen-Last Documented O2 Percentage 2 Liters = 28% Intake & Output: Intake & Output 10/29/18 10/30/18 10/31/18 11/01/18 11:59 11:59 11:59 11:59 Intake Total 4027 2280 1420 600 Output Total 2730 1225 2375 550 Balance 1297 1055 -955 50 - Lab Result Diagrams: 10/29/18 10:10 10/29/18 10:10 Micro Results-Entire Visit: Microbiology 10/26/18 10:35 Blood Culture Gram Stain - Final Blood Not Reportable Blood Culture - Final NO GROWTH 10/26/18 10:30 Blood Culture Gram Stain - Final Blood Not Reportable Blood Culture - Final NO GROWTH 10/28/18 Unknown Abscess Culture - Final Elbow - Right Staphylococcus Aureus 10/26/18 14:30 Urine Culture - Final Urine, Void <10K NORMAL SKIN KIRSTEN PROBABLE SKIN CONTAMINANT - Procedures and Test Procedures and Tests throughout Hospitalization: Therapy Orders & Screens 10/26/18 13:18 PT Eval & Treat ( Order) ROUTINE Reason for Eval:: Recurrent Falls, DDD/Lumbar Spine, Generalized Weakness Diagnosis: Recurrent Falls, DDD/Lumbar Spine, Generalized Weakness EKG Comment: 10/26/18 14:28 OT Screen per Nursing Assess Comment: Protocol Order Physician Instructions: Greater than 3 points order OT Admission Screening Reason For Exam: Triggered on Admission Diagnosis: Recurrent Falls, DDD/Lumbar Spine, Generalized Weakness Open Wound/Cellutlitis/Pressure Ulcers: Yes Acute Fx/ORIF/Change in wt bearing status: No Severe MUSCULOSKELETAL pain: No ADL Dysfunction: Yes Acute CVA w/Hemiparesis/Hemiplegia: No Decreased Functional Mobility/Strength: Yes Sprain/Strain: No Acute Post-op Mobility Dysfunction: No Total Points: 9 PT Screen per Nursing Assess Comment: Protocol Order Physician Instructions: Greater than 3 points order PT Admission Screenin Reason For Exam: Triggered on Admission Diagnosis: Recurrent Falls, DDD/Lumbar Spine, Generalized Weakness Open Wound/Cellutlitis/Pressure Ulcers: Yes Acute Fx/ORIF/Change in wt bearing status: No Severe MUSCULOSKELETAL pain: No ADL Dysfunction: Yes Acute CVA w/Hemiparesis/Hemiplegia: No Decreased Functional Mobility/Strength: Yes Sprain/Strain: No Acute Post-op Mobility Dysfunction: No Total Points: 9 Smoking Cessation Education ONCE Comment: Diagnosis: Recurrent Falls, DDD/Lumbar Spine, Generalized Weakness Smoking Status: Current every day smoker How long have you smoked: "15 years" Have you smoked in the past 12 months: Yes Approximately how many cigarettes per day: 20 Do you dip or chew tobacco: No 10/26/18 14:47 Peak Expiratory Flow Rate ONCE Comment: Reason For Exam: Diagnosis: Recurrent Falls, DDD/Lumbar Spine, Generalized Weakness Respiratory Therapy Assessment DAILY Comment: Diagnosis: Recurrent Falls, DDD/Lumbar Spine, Generalized Weakness 10/26/18 14:48 Oxygen Nasal Cannula 2 lpm Comment: Diagnosis: Recurrent Falls, DDD/Lumbar Spine, Generalized Weakness Discharge Exam General Appearance: no apparent distress, alert Neurologic Exam: oriented x 3, cooperative Eye Exam: eyes nml inspection Ears, Nose, Throat Exam: moist mucous membranes Neck Exam: normal inspection Respiratory Exam: normal breath sounds, lungs clear, No crackles/rales, No rhonchi, No wheezing Cardiovascular Exam: regular rate/rhythm, normal heart sounds, No murmur Extremity Exam: normal inspection, other (R elbow is wrapped), No pedal edema, No swelling Skin Exam: normal color, warm, dry Final Diagnosis/Problem List - Final Discharge Diagnosis/Problem (1) Bacteremia due to Staphylococcus aureus Status: Acute Assessment & Plan: Today is day #8 vancomycin. Start IV levaquiin at [facility] for 7d. Code(s): R78.81 - BACTEREMIA (2) Cellulitis of right elbow Status: Acute Code(s): L03.113 - CELLULITIS OF RIGHT UPPER LIMB (3) Degenerative disc disease at L5-S1 level Status: Chronic Code(s): M51.36 - OTHER INTERVERTEBRAL DISC DEGENERATION, LUMBAR REGION (4) Generalized weakness Status: Acute Code(s): R53.1 - WEAKNESS - Discharge Disposition: Skilled Care @ [place]' Condition: Fair Prescriptions: New Levofloxacin [Levofloxacin 500MG/100ML D5W] 500 mg IV Q24H10 #12 bag Continue Zolpidem Tartrate 10 mg PO QHS Verapamil HCl [Verapamil ER] 240 mg PO QHS Trandolapril 4 mg PO DAILY Omeprazole 20 mg PO DAILY Ibuprofen 800 mg PO TID Gabapentin 300 mg PO TID Clonazepam 0.5 mg [Klonopin 0.5 MG] 0.5 mg PO TID PRN PRN PRN Reason: Anxiety Cyclobenzaprine HCl 10 mg [Cyclobenzaprine 10 MG] 5 mg PO TID tablet Doxycycline Hyclate 100 mg [Vibramycin 100 MG] 100 mg PO BID #20 tab Additional Instructions: CUSTODIAL ORDERS: PT/OT SEE ATTACHED FOR MEDICATION ORDERS RIGHT ELBOW WOUND CARE DAILY, CLEAN WITH HIBICLEANSE/SALINE MIX, PACK WITH NU- GUAZE, COVER WITH OPTIFOAM, AND APPLY TUBI-GIZZARD PULLER. REGULAR DIET Follow up with: DIMAS TINEO MD [Primary Care Provider] - 1 Week
== END 2018-10-31 15:15 ==
LOC: ED 10:14 → MED SURG 13:16
PROVIDERS: ADMIT Family Medicine; ATTEND General Practice
DX: B95.61 Methicillin susceptible Staphylococcus aureus infection as the cause of diseases classified elsewhere (principal); R78.81 Bacteremia; R53.1 Weakness; I10 Essential (primary) hypertension; L03.113 Cellulitis of right upper limb; S51.001A Unspecified open wound of right elbow, initial encounter; M51.36 Other intervertebral disc degeneration, lumbar region; Z79.899 Other long term (current) drug therapy; J44.9 Chronic obstructive pulmonary disease, unspecified; M47.812 Spondylosis without myelopathy or radiculopathy, cervical region; N39.0 Urinary tract infection, site not specified; B96.20 Unspecified Escherichia coli [E. coli] as the cause of diseases classified elsewhere; I25.10 Atherosclerotic heart disease of native coronary artery without angina pectoris; R29.6 Repeated falls; Z86.73 Personal history of transient ischemic attack (TIA), and cerebral infarction without residual deficits; M25.511 Pain in right shoulder
CPT/HCPCS: 36415; 70450; 71045; 72131; 72149; 80053; 80307; 81001; 82550; 83605; 83880; 84484; 85025; 85027; 85610; 85730; 87040; 87070; 87077; 87086; 87186; 93005; 93041; 94640; 94760; 96360; 96365; 96366; 96368; 97110; 97162; 97530; 99285; G0480; G0481; 93268; G0378; J0690; J1650; J1956; J3370; A9270-GY

== ENCOUNTER 2018-12-05 09:54 | Emergency (ER) | payer MEDICARE, OTHER ==
[2018-12-05] MEDS ORDERED: Sodium Chloride 0.9% 1000 ML 1,000 ML IV STA (10:01)
--- NOTE | 2018-12-05 10:15 | ERPHSYRPT ---
- History of Present Illness Time Seen by Provider: 12/05/18 10:01 Source: patient, family, EMS, residential records, old records Exam Limitations: no limitations Physician History: PT IS A 68 Y/O MALE VIA EMS C/O FALL OUT OF BED AND BACK PAIN. PER REPORT OF EMS BS WAS 118. PT WAS HYPOTENSIVE IN THE 80'S INTIALLY . RECEIVED 250 CC NS. PT STATES HE GOT A NEW PHONE AND WAS "FIDDLING WITH IT WHEN I FELL ASLEEP AND WOKE UP PRIOR TO HITTING THE GROUND AND TRIED TO CATCH MYSELF ON THE SIDE OF BED BUT STILL SLID TO THE GROUND. " PT STATES THIS IS A COMMON OCCURENCE FOR HIM. NO LOC. NO SYNCOPE. PT DENIES CP/SOB/N/V/FEVER/CHILLS/DYSURIA/HEMATURIA. HE IS IN [facility] "[place] BEEN HAVING STROKES AND CANT TAKE CARE OF MYSELF." PT REPORTS FREQUENT FALLS. REPORTS CHRONIC BACK PAIN "THEY STOPPED GIVING ME PAIN MEDICINE FOR IT." PT STATES HE HAS BOUTS OF EXACERBATIONS OF BACK PAIN AND TODAY IS "A BAD ONE" NO INCONTINENCE/PARESTHESIAS/SACRAL ANESTHESIA. STATES IT IS NOT UNCOMMOM FOR HIM TO SLIP OUT OF BED. HAS LEFT ELBOW ABRASION FROM A FEW WEEKS AGO. DENIES BLOOD THINNERS. DENIES SYNCOPE OR NEAR SYNCOPE "I FELL ASLEEP. " PT STATES HE HAS AN APPOINTMENT IN [facility] IN A FEW WEEKS FOR SURGERY FOR HIS BACK. Allergies/Adverse Reactions: No Known Drug Allergies Allergy (Verified 12/05/18 10:20) Home Medications: Clonazepam 0.5 mg [Klonopin 0.5 MG] 0.5 mg PO TID PRN PRN 09/18/18 [ History] Gabapentin 300 mg PO TID 09/18/18 [History] Ibuprofen 800 mg PO TID 09/18/18 [History] Verapamil HCl [Verapamil ER] 240 mg PO QHS 09/18/18 [History] Lisinopril 20 mg [Zestril 20 MG] 20 mg PO DAILY 12/05/18 [History] PANTOPRAZOLE 40 mg Tablet [Protonix 40MG Tablet] 40 mg PO QAM 12/05/18 [ History] Hx Tetanus, Diphtheria Vaccination/Date Given: No Hx Influenza Vaccination/Date Given: No Hx Pneumococcal Vaccination/Date Given: No - Review of Systems Constitutional: No Symptoms, No Fever, No Chills, No Fatigue, No Lethargy, No Malaise, No Night Sweats, No Weakness, No Weight Loss Eyes: No Symptoms, No Discharge, No Eye Pain, No Eye Redness, No Itchy, No Photophobia, No Tearing, No Vision Changes, No Double Vision, No Foreign Body Sensation Ears, Nose, & Throat: No Symptoms, No Ear Pain, No Ear Discharge, No Hearing Changes, No Tinnitus, No Nose Congestion, No Nose Discharge, No Epistaxis, No Mouth Pain, No Mouth Swelling, No Throat Pain, No Throat Swelling, No Hoarse, No Painful Swallowing, No Stridor Respiratory: No Symptoms, No Cough, No Cyanosis, No Dyspnea, No Dyspnea on Exertion (COOK), No Stridor, No Wheezing Cardiac: No Symptoms, No Chest Pain, No Edema, No Palpitations, No Syncope, No Orthopnea Abdominal/Gastrointestinal: No Symptoms, No Abdominal Pain, No Nausea, No Vomiting, No Diarrhea, No Constipation, No Hematemesis, No Hematochezia, No Melena, No Dysphagia, No Appetite Changes Genitourinary Symptoms: No Symptoms, No Dysuria, No Frequency, No Hematuria, No Hesitancy, No Incontinence, No Urgency, No Urinary Retention, No Flank Pain Musculoskeletal: No Symptoms, Back Pain, No Arthralgias, No Neck Pain, No Deformity, No Fall, No Injury, No Joint Redness, No Joint Pain, No Joint Swelling, No Myalgias Skin: No Symptoms, Skin Lesions, No Cellulitis, No Decubiti, No Induration, No Pruritis, No Rash, No Dryness Neurological: No Symptoms, Other (syncope), No Dizziness, No Focal Weakness, No Gait Changes, No Headache, No Irritability, No Lethargy, No Paralysis, No Parasthesia, No Seizure, No Sensory Changes, No Speech Changes, No Tics, No Tremors, No Vertigo Psychological: No Symptoms, No Alcohol Abuse, No Drug Abuse, No Anxiety, No Depression, No Suicidal Ideations, No Homicidal Ideations, No Emotional Lability , No Hallucinations, No Memory Loss, No Mood Changes Endocrine: No Symptoms, No Polyuria, No Polydipsia, No Hair Changes, No Cold Intolerance, No Excessive Sweating, No Goiter Hematologic/Lymphatic: No Symptoms, No Anemia, No Blood Clots, No Easy Bleeding , No Gum Bleeding, No Easy Bruising, No Adenopathy Immunological/Allergic: No Symptoms All Other Systems: Reviewed and Negative - Past Medical History Pertinent Past Medical History: Yes Neurological History: Stroke ENT History: Cataracts Cardiac History: Hypertension Respiratory History: Bronchitis, COPD Endocrine Medical History: No Pertinent History Musculoskeletal History: Degenerative Disk Disease, Fractures, Osteoarthritis GI Medical History: No Pertinent History History: Other Psycho-Social History: Anxiety, Depression Male Reproductive Disorders: No Pertinent History Other Medical History: overactive bladder, functional incontinence; R arm fracture about 55 years ago - Past Surgical History Past Surgical History: Yes Neuro Surgical History: No Pertinent History Cardiac: No Pertinent History Respiratory: No Pertinent History Gastrointestinal: No Pertinent History Genitourinary: No Pertinent History Musculoskeletal: Other Male Surgical History: No Pertinent History Other Surgical History: Lumbar surgery 1999, 2 cysts removed from back - Social History Smoking Status: Current every day smoker How long have you smoked: "15 years" Exposure to second hand smoke: Yes Drug Use: none Patient Lives Alone: Yes - Nursing Vital Signs Nursing Vital Signs: Initial Vital Signs Temperature 97.7 F 12/05/18 09:55 Pulse Rate 74 12/05/18 09:55 Respiratory Rate 18 12/05/18 09:55 Blood Pressure 112/70 12/05/18 09:55 O2 Sat by Pulse Oximetry 98 12/05/18 09:55 Pain Scale Pain Intensity [Back] 8 Pain Intensity 8 - Physical Exam General Appearance: no apparent distress, alert, other Eye Exam: PERRL/EOMI, eyes nml inspection, other (fundi normal sharon), No scleral icterus, No pale conjunctivae, No photophobia, No EOM palsy/anisocoria Ears, Nose, Throat Exam: normal ENT inspection, TMs normal, pharynx normal, TM abnormal (L), other (uvula midline, floor of mouth soft), No moist mucous membranes, No dry mucous membranes, No TM abnormal (R), No pharyngeal erythema, No tonsillar exudate Neck Exam: normal inspection, non-tender, supple, full range of motion, No meningismus, No mass, No Brudzinski, No Kernig's, No carotid bruit, No JVD, No limited range of motion, No lymphadenopathy, No midline tenderness, No thyromegaly Respiratory Exam: normal breath sounds, lungs clear, airway intact, No chest tenderness, No respiratory distress, No diminished breath sounds, No accessory muscle use, No prolonged expirations, No crackles/rales, No rhonchi, No wheezing , No stridor, No pleural rub Cardiovascular Exam: regular rate/rhythm, normal heart sounds, normal peripheral pulses, capillary refill <2 sec, No murmur, No friction rub, No gallop, No tachycardia, No bradycardia, No irregular, No capillary refill 2-3 sec, No capillary refill >3 sec, No edema, No pulse deficit Gastrointestinal/Abdomen Exam: soft, normal bowel sounds, other (left flank hematoma with abrasion), No tenderness, No distention, No mass, No guarding, No ecchymosis, No pulsatile mass, No rebound, No hernia, No hepatomegaly, No organomegaly, No splenomegaly, No bruit Male Genitalia Exam: normal genitalia Rectal Exam: deferred, other (no sacral anesthesia) Back Exam: normal inspection, decreased range of motion, muscle spasm, other ( neg slr sharon, no sacral anesthesia, dtr 2/4 sharon patella), No CVA tenderness, No vertebral tenderness, No rash, No point tenderness Extremity Exam: normal inspection, normal range of motion, pelvis stable, No amputations, No contusions, No calf tenderness, No deformities, No lacerations, No parasthesia, No paralysis, No inflammation, No joint swelling, No limited range of motion, No pedal edema, No swelling, No tenderness Neurologic Exam: alert, oriented x 3, cooperative, fiscal officer II-XII nml as tested, normal mood/affect, nml cerebellar function, nml station & gait, sensation nml, No motor deficits, No sensory deficit, No disoriented, No confusion, No agitation, No uncooperative, No intoxicated appearance, No depressed mood/affect , No motor weakness, No facial droop, No slurred speech, No aphasia, No dysarthria, No abnormal gait, No abnormal cerebellar tests, No abnormal fiscal officer II- XII, No EOM palsy Skin Exam: normal color, warm, dry, abrasion (right elbow, left flank), No rash , No petechiae, No jaundice, No cyanosis, No diaphoresis, No decubitus, No embolic lesions, No ecchymosis, No jaundice, No laceration, No mottled, No pale Lymphatic Exam: No adenopathy SpO2 Interpretation: normal O2 Delivery: Room Air - Course Nursing assessment & vital signs reviewed: Yes EKG Interpreted by Me: RATE (76), NORMAL AXIS, NORMAL INTERVALS, NORMAL QRS, NORMAL ST-T Ordered Tests: Active Orders 24 hr Category Date Time Status [place] Operator STAT Care 12/05/18 10:04 Active Clean Catch Urine Specimen STAT Care 12/05/18 10:14 Active EKG-ER Only STAT Care 12/05/18 10:01 Active EKG-ER Only STAT Care 12/05/18 12:24 Active IV Insertion STAT Care 12/05/18 10:01 Active Orthostatic Vital Signs STAT Care 12/05/18 10:01 Active Pulse Oximetry (ED) STAT Care 12/05/18 10:01 Active ABDOMEN AND PELVIS W CONTRAST [CT] Stat Exams 12/05/18 10:06 Completed CHEST 1 VIEW (PORTABLE) Stat Exams 12/05/18 10:02 Completed HEAD WITHOUT CONTRAST [CT] Stat Exams 12/05/18 10:05 Completed RECONSTRUCTION [CT] Routine Exams 12/05/18 10:21 Completed CBC W DIFF Stat Lab 12/05/18 10:20 Completed CMP Stat Lab 12/05/18 10:20 Completed ETHYL ALCOHOL Stat Lab 12/05/18 10:20 Completed Manual Differential NC Stat Lab 12/05/18 10:20 Completed Occult Blood, Other Screening Stat Lab 12/05/18 10:56 Completed PROTIME WITH INR Stat Lab 12/05/18 10:20 Completed TROPONIN Q3H Lab 12/05/18 10:20 Completed TROPONIN Q3H Lab 12/05/18 12:35 Completed TROPONIN Q3H Lab 12/05/18 16:15 Ordered TROPONIN Q3H Lab 12/05/18 19:15 Ordered TROPONIN Q3H Lab 12/05/18 22:15 Ordered UA W/RFX UR CULTURE Stat Lab 12/05/18 10:56 Completed Urine Triage Profile Stat Lab 12/05/18 10:56 Completed Medication Summary Discontinued Medications Generic Name Dose Route Start Last Admin Trade Name Freq PRN Reason Stop Dose Admin Sodium Chloride 1,000 mls @ 999 mls/hr 12/05/18 10:01 12/05/18 10:21 Sodium Chloride 0.9% 1000 Ml IV 12/05/18 11:01 999 mls/hr .Q1H1M STA Administration Sodium Chloride Confirm 12/05/18 10:20 Sodium Chloride 0.9% 1000 Ml Administered 12/05/18 10:21 Dose 1,000 mls @ ud .ROUTE .STK-MED ONE Ketorolac Tromethamine 15 mg 12/05/18 12:34 12/05/18 12:38 Toradol 30 Mg Injection IV 12/05/18 12:35 15 mg STAT ONE Administration Ketorolac Tromethamine Confirm 12/05/18 12:37 Toradol 30 Mg Injection Administered 12/05/18 12:38 Dose 30 mg .ROUTE .STK-MED ONE Lab/Rad Data: Laboratory Result Diagrams 12/05/18 10:20 12/05/18 10:20 Laboratory Results 12/05/18 12/05/18 12/05/18 Range/Units 12:35 10:56 10:56 WBC (4.0-10.5) K/mm3 RBC (4.1-5.6) M/mm3 Hgb (12.5-18.0) gm/dl Hct (42-50) % MCV (78-100) fl MCH (26-32) pg MCHC (32-36) g/dl RDW (11.5-14.0) % Plt Count (150-450) K/mm3 MPV (6-9.5) fl Gran % (36.0-66.0) % Eos # (Auto) (0-0.5) Absolute Lymphs (auto) (1.0-4.6) Absolute Monos (auto) (0.0-1.3) Lymphocytes % (24.0-44.0) % Monocytes % (0.0-12.0) % Eosinophils % (0.00-5.0) % Basophils % (0.0-0.4) % Absolute Granulocytes (1.4-6.9) Segmented Neutrophils (36.-66.) % Band Neutrophils (0.0-2.0) % Lymphocytes (Manual) (24-44) % Monocytes (Manual) (0.0-12.0) % Basophils # (0-0.4) Platelet Estimate (NORMAL) RBC Morphology Anisocytosis Macrocytosis Morphology Comment PT (8.83-12.87) SECONDS INR (0.8-3.0) Sodium (137-145) mmol/L Potassium (3.5-5.1) mmol/L Chloride (98-107) mmol/L Carbon Dioxide (22-30) mmol/L Anion Gap (5-15) MEQ/L BUN (9-20) mg/dL Creatinine (0.66-1.25) mg/dL Estimated GFR ML/MIN Glucose (74-106) mg/dL Calcium (8.4-10.2) mg/dL Total Bilirubin (0.2-1.3) mg/dL AST (17-59) U/L ALT (0-50) U/L Alkaline Phosphatase (38-126) U/L Troponin I < 0.012 (0.000-0.034) ng/mL Serum Total Protein (6.3-8.2) g/dL Albumin (3.5-5.0) g/dL Urine Color (YELLOW) Urine Appearance (CLEAR) Urine pH (5-6) Ur Specific [place] (1.005-1.025) Urine Protein (Negative) Urine Ketones (NEGATIVE) Urine Blood (0-5) Benito/ul Urine Nitrite (NEGATIVE) Urine Bilirubin (NEGATIVE) Urine Urobilinogen (0-1) mg/dL Ur Leukocyte Esterase (NEGATIVE) Urine WBC (Auto) (0-5) /HPF Urine RBC (Auto) (0-2) /HPF U Hyaline Cast (Auto) (0-2) /LPF U Epithel Cells (Auto) (FEW) /HPF Urine Bacteria (Auto) (NEGATIVE) /HPF Urine Sperm (Auto) (NEGATIVE) /HPF Urine Culture Reflexed (NO) Urine Glucose (NEGATIVE) mg/dL Stool Occult Blood NEGATIVE (Negative) Urine Opiates Level NEGATIVE (NEGATIVE) Ur Methadone NEGATIVE (NEGATIVE) Urine Barbiturates NEGATIVE (NEGATIVE) Ur Phencyclidine (PCP) NEGATIVE (NEGATIVE) Urine Amphetamine NEGATIVE (NEGATIVE) U Benzodiazepine Level NEGATIVE (NEGATIVE) Urine Cocaine NEGATIVE (NEGATIVE) Urine Marijuana (THC) NEGATIVE (NEGATIVE) Ethyl Alcohol (0-10) mg/dL 12/05/18 12/05/18 12/05/18 Range/Units 10:56 10:20 10:20 WBC (4.0-10.5) K/mm3 RBC (4.1-5.6) M/mm3 Hgb (12.5-18.0) gm/dl Hct (42-50) % MCV (78-100) fl MCH (26-32) pg MCHC (32-36) g/dl RDW (11.5-14.0) % Plt Count (150-450) K/mm3 MPV (6-9.5) fl Gran % (36.0-66.0) % Eos # (Auto) (0-0.5) Absolute Lymphs (auto) (1.0-4.6) Absolute Monos (auto) (0.0-1.3) Lymphocytes % (24.0-44.0) % Monocytes % (0.0-12.0) % Eosinophils % (0.00-5.0) % Basophils % (0.0-0.4) % Absolute Granulocytes (1.4-6.9) Segmented Neutrophils (36.-66.) % Band Neutrophils (0.0-2.0) % Lymphocytes (Manual) (24-44) % Monocytes (Manual) (0.0-12.0) % Basophils # (0-0.4) Platelet Estimate (NORMAL) RBC Morphology Anisocytosis Macrocytosis Morphology Comment PT 11.8 (8.83-12.87) SECONDS INR 1.04 (0.8-3.0) Sodium (137-145) mmol/L Potassium (3.5-5.1) mmol/L Chloride (98-107) mmol/L Carbon Dioxide (22-30) mmol/L Anion Gap (5-15) MEQ/L BUN (9-20) mg/dL Creatinine (0.66-1.25) mg/dL Estimated GFR ML/MIN Glucose (74-106) mg/dL Calcium (8.4-10.2) mg/dL Total Bilirubin (0.2-1.3) mg/dL AST (17-59) U/L ALT (0-50) U/L Alkaline Phosphatase (38-126) U/L Troponin I < 0.012 (0.000-0.034) ng/mL Serum Total Protein (6.3-8.2) g/dL Albumin (3.5-5.0) g/dL Urine Color YELLOW (YELLOW) Urine Appearance CLEAR (CLEAR) Urine pH 7.0 (5-6) Ur Specific [place] 1.015 (1.005-1.025) Urine Protein NEGATIVE (Negative) Urine Ketones NEGATIVE (NEGATIVE) Urine Blood NEGATIVE (0-5) Benito/ul Urine Nitrite NEGATIVE (NEGATIVE) Urine Bilirubin NEGATIVE (NEGATIVE) Urine Urobilinogen 4 (0-1) mg/dL Ur Leukocyte Esterase NEGATIVE (NEGATIVE) Urine WBC (Auto) 0-2 (0-5) /HPF Urine RBC (Auto) NONE (0-2) /HPF U Hyaline Cast (Auto) 3-5 (0-2) /LPF U Epithel Cells (Auto) NONE (FEW) /HPF Urine Bacteria (Auto) NONE (NEGATIVE) /HPF Urine Sperm (Auto) PRESENT (NEGATIVE) /HPF Urine Culture Reflexed NO (NO) Urine Glucose NEGATIVE (NEGATIVE) mg/dL Stool Occult Blood (Negative) Urine Opiates Level (NEGATIVE) Ur Methadone (NEGATIVE) Urine Barbiturates (NEGATIVE) Ur Phencyclidine (PCP) (NEGATIVE) Urine Amphetamine (NEGATIVE) U Benzodiazepine Level (NEGATIVE) Urine Cocaine (NEGATIVE) Urine Marijuana (THC) (NEGATIVE) Ethyl Alcohol (0-10) mg/dL 12/05/18 12/05/18 Range/Units 10:20 10:20 WBC 10.3 (4.0-10.5) K/mm3 RBC 2.75 L (4.1-5.6) M/mm3 Hgb 9.3 L (12.5-18.0) gm/dl Hct 28.9 L (42-50) % MCV 105.1 H (78-100) fl MCH 33.8 H (26-32) pg MCHC 32.2 (32-36) g/dl RDW 13.4 (11.5-14.0) % Plt Count 371 (150-450) K/mm3 MPV 8.1 (6-9.5) fl Gran % 80.6 H (36.0-66.0) % Eos # (Auto) 0.04 (0-0.5) Absolute Lymphs (auto) 1.31 (1.0-4.6) Absolute Monos (auto) 0.61 (0.0-1.3) Lymphocytes % 12.8 L (24.0-44.0) % Monocytes % 6.0 (0.0-12.0) % Eosinophils % 0.4 (0.00-5.0) % Basophils % 0.2 (0.0-0.4) % Absolute Granulocytes 8.27 H (1.4-6.9) Segmented Neutrophils 80 H (36.-66.) % Band Neutrophils 2 (0.0-2.0) % Lymphocytes (Manual) 15 L (24-44) % Monocytes (Manual) 3 (0.0-12.0) % Basophils # 0.02 (0-0.4) Platelet Estimate NORMAL (NORMAL) RBC Morphology ABNORMAL Anisocytosis 1+ Macrocytosis 1+ Morphology Comment PT (8.83-12.87) SECONDS INR (0.8-3.0) Sodium 138 (137-145) mmol/L Potassium 5.0 (3.5-5.1) mmol/L Chloride 100 (98-107) mmol/L Carbon Dioxide 26 (22-30) mmol/L Anion Gap 16.7 H (5-15) MEQ/L BUN 15 (9-20) mg/dL Creatinine 1.08 (0.66-1.25) mg/dL Estimated GFR > 60.0 ML/MIN Glucose 112 H (74-106) mg/dL Calcium 9.1 (8.4-10.2) mg/dL Total Bilirubin 0.50 (0.2-1.3) mg/dL AST 13 L (17-59) U/L ALT 19 (0-50) U/L Alkaline Phosphatase 138 H (38-126) U/L Troponin I (0.000-0.034) ng/mL Serum Total Protein 7.5 (6.3-8.2) g/dL Albumin 3.6 (3.5-5.0) g/dL Urine Color (YELLOW) Urine Appearance (CLEAR) Urine pH (5-6) Ur Specific [place] (1.005-1.025) Urine Protein (Negative) Urine Ketones (NEGATIVE) Urine Blood (0-5) Benito/ul Urine Nitrite (NEGATIVE) Urine Bilirubin (NEGATIVE) Urine Urobilinogen (0-1) mg/dL Ur Leukocyte Esterase (NEGATIVE) Urine WBC (Auto) (0-5) /HPF Urine RBC (Auto) (0-2) /HPF U Hyaline Cast (Auto) (0-2) /LPF U Epithel Cells (Auto) (FEW) /HPF Urine Bacteria (Auto) (NEGATIVE) /HPF Urine Sperm (Auto) (NEGATIVE) /HPF Urine Culture Reflexed (NO) Urine Glucose (NEGATIVE) mg/dL Stool Occult Blood (Negative) Urine Opiates Level (NEGATIVE) Ur Methadone (NEGATIVE) Urine Barbiturates (NEGATIVE) Ur Phencyclidine (PCP) (NEGATIVE) Urine Amphetamine (NEGATIVE) U Benzodiazepine Level (NEGATIVE) Urine Cocaine (NEGATIVE) Urine Marijuana (THC) (NEGATIVE) Ethyl Alcohol < 10 (0-10) mg/dL - Progress Progress: improved Progress Note: 12/05/18 10:38 hgb 9.3 today was 13.4 10/22/2018 will check hemocult. pt denies melena ER PRELIM CXR IS NAD NOT ORTHOSTATIC 12/05/18 10:38 12/05/18 10:41 RECTAL EXAM: BROWN STOOL, NORMAL TONE 12/05/18 11:11 heme neg wac 12/05/18 11:32 PT OBSERVED TEXTING, APPEARS COMFORTABLE. NOT ORTHOSTATIC BUT DOES NOT STAND DUE TO CHRONIC BACK PAIN CT HEAD NAD GLOBAL ATROPHY 12/05/18 12:22 CT A/P SMALL RIGHT PLEURAL EFFUSION WITH COMPRESSIVE ATELECTASIS NO FAILURE, OSTEOPENIA, NO ACUTE FX OF TLSP CHRONIC DJD, OLD NON UNITED RIGHT 10RIB AND LEFT 9 RIB FX. SHARON FATTY INGUINAL HERNIA. NO HEMORRHAGE 12/05/18 12:43 ekg #2 IS NSR @[address]/T CHANGES OR INTERVLA CHANGES 12/05/18 13:17 TROP #2 NEG WILL DC WITH FUP ALL QUESTIONS ANSWERED TO PT SATISFACTION Counseled pt/family regarding: drug and/or alcohol abuse, lab results, diagnosis , need for follow-up, rad results, smoking cessation - Departure Departure Disposition: Home Clinical Impression: Fall from chair or bed, Acute exacerbation of chronic low back pain Condition: Good Critical Care Time: No Referrals: DIMAS TINEO MD [Primary Care Provider] - Instructions: Preventing Falls in the Older Adult, Low Back Pain (DC) Additional Instructions: TO ER IF BOWEL OR BLADDER INCONTINENCE, UNILATERAL WEAKNESS, VISUAL CHANGES, ALTERATION IN MENTAL STATUS, SPEECH CHANGES, FEVER OVER 102, CHEST PAIN, SHORTNESS OF BREATH TYLENOL AND MOTRIN FOR DISCOMFORT ICE TO BACK PLEASE FOLLOW UP WITH YOUR DOCTOR IN 2-3 DAYS FOR RE-EVALUATION AND DEFINITIVE CARE
[2018-12-05] MEDS ORDERED: Sodium Chloride 0.9% 1000 ML 1,000 ML ONE (10:20)
[2018-12-05 10:26] LABS: Absolute Neutrophil Ct (ANC) 8.27 (1.4-6.9); BASOPHIL % 0.2 % (0.0-0.4); Basophil (Absolute #) 0.02 (0-0.4); Eosinophil % 0.4 % (0.00-5.0); Eosinophil (Absolute #) 0.04 (0-0.5); Hematocrit 28.9 % (42-50); Hemoglobin 9.3 gm/dl (12.5-18.0); Lymphocyte (Absolute #) 1.31 (1.0-4.6); Lymphocytes % 12.8 % (24.0-44.0); Mean Cell Volume 105.1 fl (78-100); Mean Corpuscular Hemoglobin 33.8 pg (26-32); Mean Corpuscular Hgb Concent. 32.2 g/dl (32-36); Mean Platelet Volume 8.1 fl (6-9.5); Monocyte (Absolute #) 0.61 (0.0-1.3); Neutrophil % 80.6 % (36.0-66.0); Platelet Count 371 K/mm3 (150-450); Red Blood Count 2.75 M/mm3 (4.1-5.6); Red Cell Distribution Width 13.4 % (11.5-14.0); White Blood Count 10.3 K/mm3 (4.0-10.5)
--- NOTE | 2018-12-05 10:35 | XRAY ---
Indication: Syncope. Left flank pain, contusion, and hematoma. Comparison: October 26, 2018. Portable chest again demonstrates normal heart and lungs with incidental chronic right hemidiaphragm elevation. Bony thorax intact again with mild degenerative changes. No new/acute findings.
[2018-12-05 10:36] LABS: INR 1.04 (0.8-3.0); PROTIME 11.8 SECONDS (8.83-12.87)
[2018-12-05 10:42] LABS: ALBUMIN 3.6 g/dL (3.5-5.0); ALKALINE PHOSPHATASE 138 U/L (38-126); ANION GAP 16.7 MEQ/L (5-15); BLOOD UREA NITROGEN 15 mg/dL (9-20); CHLORIDE 100 mmol/L (98-107); Calcium 9.1 mg/dL (8.4-10.2); Carbon Dioxide 26 mmol/L (22-30); Creatinine 1 1.08 mg/dL (0.66-1.25); Glucose 112 mg/dL (74-106); SGOT/AST 13 U/L (17-59); SGPT/ALT 19 U/L (0-50); SODIUM 138 mmol/L (137-145); Total Protein 7.5 g/dL (6.3-8.2)
[2018-12-05 10:43] LABS: ETHYL ALCOHOL < 10 mg/dL (0-10)
[2018-12-05 11:05] LABS: BAND 2 % (0.0-2.0); Lymphocytes 15 % (24-44); Monocyte 3 % (0.0-12.0); Neutrophils 80 % (36.-66.); Total Cells Counted 100
[2018-12-05 11:06] LABS: ANISOCYTOSIS 1+; Macrocytosis 1+; Platelet Estimate NORMAL (NORMAL)
[2018-12-05 11:10] LABS: Appearance CLEAR (CLEAR); Bilirubin NEGATIVE (NEGATIVE); Blood NEGATIVE Ery/ul (0-5); Glucose NEGATIVE (NEGATIVE); Ketones NEGATIVE (NEGATIVE); Leukocyte Esterase NEGATIVE (NEGATIVE); Nitrite NEGATIVE (NEGATIVE); Protein,Urine Dip NEGATIVE (Negative); Specific Gravity 1.015 (1.005-1.025); Sperm PRESENT /HPF (NEGATIVE); Urobilinogen 4 mg/dL (0-1); WBC 0-2 /HPF (0-5)
[2018-12-05 11:14] LABS: Amphetamine,Urine NEGATIVE (NEGATIVE); Barbiturate,Urine NEGATIVE (NEGATIVE); Benzodiazepine,Urine NEGATIVE (NEGATIVE); Cocaine,Urine NEGATIVE (NEGATIVE); Methadone,Urine NEGATIVE (NEGATIVE); Opiate,Urine NEGATIVE (NEGATIVE); PCP,Urine NEGATIVE (NEGATIVE); THC,Urine NEGATIVE (NEGATIVE)
--- NOTE | 2018-12-05 11:32 | XRAY ---
Indication: Syncope. Multiple contiguous axial images obtained through the head without contrast. Comparison: October 26, 2018. Stable global atrophy. Again no acute intracranial hemorrhage, abnormal extra-axial fluid collection, or mass effect. Fourth ventricle is midline without hydrocephalus. Bony calvarium intact. Visualized paranasal sinuses and mastoid air cells are clear. Impression: Stable age-appropriate global atrophy. No new or acute intracranial abnormalities. CT DI 67.60
--- NOTE | 2018-12-05 12:20 | XRAY ---
Indication: Flank pain following fall. Multiple contiguous axial images obtained through the abdomen and pelvis using 80 cc Isovue 370 contrast only. Comparison: None Lung bases demonstrates small right effusion with compressive atelectasis. Left lung bases clear. Heart is not enlarged. Noncontrasted stomach and bowel loops appear nonobstructed. Mild scattered fecal debris throughout. No free fluid/air. Urinary bladder is markedly distended either outlet obstruction versus neurogenic bladder. Remaining liver, gallbladder, pancreas, spleen, adrenal glands, kidneys, and ureters appear unremarkable. Mild scattered aortoiliac calcifications. No AAA or pathologic retroperitoneal lymphadenopathy. Osseous structures demonstrate osteopenia, moderate degenerative changes throughout the thoracolumbar spine, mild degenerative changes of both hips, old nonunited right 10 rib fracture, and old left 9 rib fracture. Small bilateral fatty inguinal hernias. Impression: 1. Mild diffuse fecal stasis without obstruction. 2. Markedly distended urinary bladder. Rule out outlet obstruction versus neurogenic bladder. 3. No acute intra-abdominal/pelvic abnormalities. 4. Small right lung base effusion with atelectasis. 5. Small bilateral fatty inguinal hernias. 6. Chronic bony findings as detailed. CT DI 23.68
--- NOTE | 2018-12-05 12:21 | XRAY ---
Indication: Low back pain following fall. Axial, coronal, and sagittal reformatted images of the lumbar spine obtained using the right data from the CT abdomen/pelvis study of same day. Comparison: October 26, 2018. Stable osteopenia, mild/moderate multilevel thoracolumbar degenerative spondylosis, multilevel degenerative vacuum disc phenomena, and extrathecal air at the L5-S1 level. Again no acute fracture, subluxation, suspicious bony lesions, or spinal canal stenosis. Sagittal and coronal reformatted images demonstrates normal lumbar lordosis again with minimal levoscoliosis centered at L2. CT abdomen/pelvis reported separately. Impression: 1. Again negative acute fracture/subluxation. 2. Stable osteopenia, levoscoliosis, and multilevel degenerative spondylosis further detailed on MRI lumbar spine October 29, 2018.
[2018-12-05] MEDS ORDERED: TORAdol 30 mg Injection IV ONE (12:34)
[2018-12-05] MEDS ORDERED: TORAdol 30 mg Injection ONE (12:37)
[2018-12-05 13:34] VITALS: BP 116/59; PULSE 88; O2SAT 100
== END 2018-12-05 14:17 ==
LOC: ED 09:54
DX: M54.5 Low back pain (principal); W17.89XA Other fall from one level to another, initial encounter; Y93.9 Activity, unspecified; I10 Essential (primary) hypertension; Z79.899 Other long term (current) drug therapy
CPT/HCPCS: 36000; 36415; 70450; 71045; 74177; 76376; 80053; 80307; 81001; 82272; 84484; 85025; 85610; 93005; 93041; 94760; 96360; 96361; 96374; 99285; G0480; J1885

== ENCOUNTER 2018-12-15 18:51 | Emergency (ER) | payer MEDICARE, OTHER ==
[2018-12-15 18:57] LABS: A-aADO2 591; ABG HEMOGLOBIN 10.2; ABG POTASSIUM 4.2 (3.5-5.1); ARTERIAL BLD GAS O2 SATURATION 66.5 % (95-100); ARTERIAL BLOOD GAS BASE EXCESS -0.8 (-2.0-2.0); ARTERIAL BLOOD GAS FIO2 100 %; CARBOXYHEMOGLOBIN 2.8 % THgb (0.0-6.9); HCO3- 27.6 (22-28); HGB O2 SAT 64.4 g/dF (94-100); Methhemoglobin 0.4 % (1.4-1.5); paO2 pAO1 0.06
[2018-12-15 18:58] LABS: ARTERIAL BLOOD GAS PCO2 66 mmHg (35-45); ARTERIAL BLOOD GAS PO2 40 mmHg (75-100); ARTERIAL BLOOD GAS pH 7.23 (7.35-7.45)
[2018-12-15] MEDS ORDERED: Sodium Chloride 0.9% 1000 ML 1,000 ML ONE ×3 (18:58→20:08)
[2018-12-15 18:59] LABS: ABG SITE LEFT RADIAL; ALLEN TEST OK? YES
[2018-12-15] MEDS ORDERED: Amidate 20 MG/10 ML IV ONE (19:09)
[2018-12-15] MEDS ORDERED: Zemuron 100 MG/10 ML IV ONE (19:09)
[2018-12-15] MEDS ORDERED: Sodium Chloride 0.9% 1000 ML 1,000 ML IV SCH (19:15)
--- NOTE | 2018-12-15 19:16 | ERPHSYRPT ---
- History of Present Illness Time Seen by Provider: 12/15/18 18:55 Source: EMS, care home records Exam Limitations: clinical condition Physician History: Patient has been having increased respiratory difficulties for 4 days, worse right before EMS arrived. Patient had rapidly decreasing consciousness and increased breathing from the time he was coming from the care home to the emergency department. The patient has a history of CHF noted from the care home. Timing/Duration: day(s) (4), worse (prior to EMS coming) Activities at Onset: none Severity of Dyspnea-Max: severe Severity of Dyspnea-Current: severe Possible Cause: unknown cause Modifying Factors: Worsens With: deep breath Associated Symptoms: constant, sweating International travel in last 2 weeks: No Allergies/Adverse Reactions: No Known Drug Allergies Allergy (Verified 12/15/18 18:55) Home Medications: Clonazepam 0.5 mg [Klonopin 0.5 MG] 0.5 mg PO TID PRN PRN 09/18/18 [ History] Gabapentin 300 mg PO TID 09/18/18 [History] Ibuprofen 800 mg PO TID 09/18/18 [History] Verapamil HCl [Verapamil ER] 240 mg PO QHS 09/18/18 [History] Lisinopril 20 mg [Zestril 20 MG] 20 mg PO DAILY 12/05/18 [History] PANTOPRAZOLE 40 mg Tablet [Protonix 40MG Tablet] 40 mg PO QAM 12/05/18 [ History] Hx Tetanus, Diphtheria Vaccination/Date Given: No Hx Influenza Vaccination/Date Given: No Hx Pneumococcal Vaccination/Date Given: No - Review of Systems Constitutional: No Fever, No Chills Respiratory: Dyspnea Cardiac: No Syncope Abdominal/Gastrointestinal: No Abdominal Pain, No Nausea, No Vomiting Genitourinary Symptoms: No Flank Pain Neurological: No Focal Weakness, No Seizure, No Tremors Hematologic/Lymphatic: No Easy Bleeding, No Easy Bruising All Other Systems: Reviewed and Negative (per nursing and EMS limited ROS) - Past Medical History Pertinent Past Medical History: Yes Neurological History: Stroke ENT History: Cataracts Cardiac History: Hypertension Respiratory History: Bronchitis, COPD Endocrine Medical History: No Pertinent History Musculoskeletal History: Degenerative Disk Disease, Fractures, Osteoarthritis GI Medical History: No Pertinent History History: Other Psycho-Social History: Anxiety, Depression Male Reproductive Disorders: No Pertinent History Other Medical History: overactive bladder, functional incontinence; R arm fracture about 55 years ago - Past Surgical History Past Surgical History: Yes Neuro Surgical History: No Pertinent History Cardiac: No Pertinent History Respiratory: No Pertinent History Gastrointestinal: No Pertinent History Genitourinary: No Pertinent History Musculoskeletal: Other Male Surgical History: No Pertinent History Other Surgical History: Lumbar surgery 1999, 2 cysts removed from back - Social History Smoking Status: Current every day smoker How long have you smoked: "15 years" Exposure to second hand smoke: Yes Drug Use: none Patient Lives Alone: Yes - Nursing Vital Signs Nursing Vital Signs: Initial Vital Signs Pulse Rate 111 H 12/15/18 19:00 Blood Pressure 175/83 12/15/18 19:00 O2 Sat by Pulse Oximetry 77 L 12/15/18 19:00 - Physical Exam General Appearance: severe distress, lethargy Eye Exam: eyes nml inspection, No scleral icterus Ears, Nose, Throat Exam: normal pharynx, No pharyngeal erythema, No tonsillar exudate, No tonsillar swelling Neck Exam: normal inspection, non-tender, supple, full range of motion Respiratory Exam: respiratory distress, diminished breath sounds, crackles/rales , rhonchi Cardiovascular/Chest Exam: regular rate/rhythm, normal peripheral pulses, tachycardia Abdominal/Gastrointestinal Exam: soft, normal bowel sounds, No tenderness, No distention Extremity Exam: non-tender, No no calf tenderness, No joint swelling Neurologic Exam: beef trimmer II-XII nml as tested, other (neurologic examination limited due to patient's lethargy and respiratory distress. No apparent focal deficits noted) Skin Exam: normal color, warm, diaphoresis, No rash, No petechiae, No jaundice SpO2 Interpretation: hypoxic, O2 applied SpO2: 78 (when patient arrived) O2 Delivery: BiPap/CPAP Procedures - Intubation Intubation Indications: airway protection, respiratory distress Intubation Method: glidescope Tube Size (cm): 7.5 Medications: Midazolam (Versed) (20mg), Rocuronium (70mg) C-Spine: maintained Endotracheal Tube Confirmation: bilateral breath sounds, positive end tidal CO2 , good rise & fall of chest, stable or inc of O2 sat Intubation Complications: no complications Performed By: ED Physician Post Intubation Xray: Yes Progress/X-ray Impression: 12/15/18 19:14 Oxygentation was improving after intubation to 21cm at the [facility] - Course Nursing assessment & vital signs reviewed: Yes EKG Interpreted by Me: RATE (112), Sinus Tach, NORMAL AXIS, NORMAL INTERVALS, NORMAL QRS, NORMAL ST-T, Other (no appreciable change in comparison to EKG from 12/05/2018) - Radiology Exams Chest X-ray Interpretation: Interpreted by me, Reviewed by me, No Fracture, No Pneumothorax, Nml Heart Size, Nml Mediastinum, Infiltrates (RLL), Other (ET tube in place, will advance) - CT Exams Abdomen/Pelvis CT Interpretation: Tele-radiologist Report, Other (per radiologist interpretation: Lungs: Poorly defined patchy areas of air space disease throughout the lower lobes right greater than left. Moderate-sized complex appearing right pleural effusion. The liver: Normal to examination. No mass. Gallbladder and bile ducts: Normal. No calcified stones. No ductal dilation. Pancreas: Normal. No ductal dilation. Spleen: No thyromegaly. No masses. The genitals: Normal. No mass. Kidneys ureters colon tiny left renal cyst. Stomach and bowel: No traction. No wall thickening. Appendix: No evidence of appendicitis. It appeared tocolon no free air. A significant fluid collection. Breasts which are: Unremarkable. No abdominal or aneurysm. Lymph nodes: No enlarged lymph nodes. Bladder: [place] catheter in the bladder. Reproductive murmur was visualized. Bones/joints: Mild to moderate degenerative spondylosis. Soft tissue: Fat-containing inguinal hernias. Abdomen: Elevated right hemidiaphragm overall impression: No evidence of acute intra-abdominal pelvic pathology. No evidence of hemorrhage. 2. Bibasilar airspace disease in the differential prior examination concerning for aspiration pneumonia. 3. No significant interval change mainly complex right pleural effusion. There are additional nonemergent findings the body of the report.) Ordered Tests: Active Orders 24 hr Category Date Time Status CO2 Monitoring STAT Care 12/15/18 19:07 Active Project Economist STAT Care 12/15/18 19:08 Active Catheter-[employer] [place] STAT Care 12/15/18 19:07 Active EKG-ER Only STAT Care 12/15/18 19:07 Active Gastric Tube Insertion STAT Care 12/15/18 19:09 Active IV Insertion STAT Care 12/15/18 19:07 Active ABDOMEN AND PELVIS W CONTRAST [CT] Stat Exams 12/15/18 22:21 Taken CHEST 1 VIEW (PORTABLE) Routine Exams 12/15/18 19:33 Taken CHEST 1 VIEW (PORTABLE) Stat Exams 12/15/18 19:08 Taken ABG [ARTERIAL BLOOD GASES] Stat Lab 12/15/18 18:56 Completed ABG [ARTERIAL BLOOD GASES] Stat Lab 12/15/18 20:38 Completed AMYLASE Stat Lab 12/15/18 19:19 Completed ARTERIAL BLOOD GASES Stat Lab 12/15/18 19:07 Ordered BLOOD CULTURE Stat Lab 12/15/18 19:35 Received CBC W DIFF Stat Lab 12/15/18 19:19 Completed CMP Stat Lab 12/15/18 19:19 Completed CULTURE,URINE Stat Lab 12/15/18 19:31 Ordered LIPASE Stat Lab 12/15/18 19:19 Completed Lactic Acid Stat Lab 12/15/18 18:56 Completed Lactic Acid Stat Lab 12/15/18 19:07 Ordered MAGNESIUM Stat Lab 12/15/18 19:19 Completed Manual Differential NC Stat Lab 12/15/18 19:19 Completed NT PRO BNP Stat Lab 12/15/18 19:19 Completed PROTIME WITH INR Stat Lab 12/15/18 19:19 Completed PTT Stat Lab 12/15/18 19:19 Completed TROPONIN Q3H Lab 12/15/18 19:15 Completed TROPONIN Q3H Lab 12/15/18 22:18 Completed TROPONIN Q3H Lab 12/16/18 01:15 Ordered TROPONIN Q3H Lab 12/16/18 04:15 Ordered TROPONIN Q3H Lab 12/16/18 07:15 Ordered UA W/RFX UR CULTURE Stat Lab 12/15/18 19:33 Completed Respiratory Therapy Assessment DAILY RT 12/16/18 00:04 Active Ventilator Management Q4H RT 12/15/18 23:57 Active Medication Summary Generic Name Dose Route Start Last Admin Trade Name Freq PRN Reason Stop Dose Admin Sodium Chloride 1,000 mls @ 100 mls/hr 12/15/18 19:15 12/15/18 19:43 Sodium Chloride 0.9% 1000 Ml IV 01/14/19 19:14 100 mls/hr .Q10H CHAGO Administration Propofol 100 mls @ 1 mls/min 12/15/18 19:30 Propofol 1000 Mg/100 Ml Bottle IV 01/14/19 19:29 .Q1H40M CHAGO Norepinephrine 4,000 mcg/ 504 mls @ 37.8 mls/hr 12/15/18 20:54 12/15/18 20:59 Dextrose IV 01/14/19 20:53 5 mcg/min .[id number] PRN 37.8 mls/hr SEVERE HYPOTENSION Administration Protocol 5 MCG/MIN Discontinued Medications Generic Name Dose Route Start Last Admin Trade Name Freq PRN Reason Stop Dose Admin Cefepime HCl 2 g 12/15/18 20:53 Maxipime 2 Gm IV 12/15/18 20:54 ONCE ONE Etomidate 20 mg 12/15/18 19:09 12/15/18 19:42 Amidate 20 Mg/10 Ml IV 12/15/18 19:10 20 mg STAT ONE Administration Sodium Chloride Confirm 12/15/18 18:58 Sodium Chloride 0.9% 1000 Ml Administered 12/15/18 18:59 Dose 1,000 mls @ ud .ROUTE .STK-MED ONE Sodium Chloride 1,000 mls @ 999 mls/hr 12/15/18 19:44 12/15/18 20:12 Sodium Chloride 0.9% 1000 Ml IV 12/15/18 20:44 999 mls/hr .Q1H1M STA Administration Sodium Chloride 1,000 mls @ 999 mls/hr 12/15/18 20:09 Sodium Chloride 0.9% 1000 Ml IV 12/15/18 21:09 .Q1H1M STA Sodium Chloride 1,000 mls @ 999 mls/hr 12/15/18 20:15 Sodium Chloride 0.9% 1000 Ml IV 12/15/18 21:15 .Q1H1M STA Cefepime HCl 2 g/ Dextrose 100 mls @ 200 mls/hr 12/15/18 21:45 12/15/18 22:13 IV 12/15/18 22:14 200 mls/hr NOW ONE Administration Lorazepam 2 mg 12/15/18 21:24 12/15/18 21:27 Ativan 2 Mg/1 Ml Vial IV 12/15/18 21:25 2 mg STAT ONE Administration Lorazepam Confirm 12/15/18 21:26 Ativan 2 Mg/1 Ml Vial Administered 12/15/18 21:27 Dose 2 mg .ROUTE .STK-MED ONE Rocuronium [place] 70 mg 12/15/18 19:09 12/15/18 19:43 Zemuron 100 Mg/10 Ml IV 12/15/18 19:10 70 mg STAT ONE Administration Lab/Rad Data: Laboratory Result Diagrams 12/15/18 19:19 12/15/18 19:19 Laboratory Results 12/15/18 12/15/18 12/15/18 Range/Units 22:18 20:38 19:33 WBC (4.0-10.5) K/mm3 RBC (4.1-5.6) M/mm3 Hgb (12.5-18.0) gm/dl Hct (42-50) % MCV (78-100) fl MCH (26-32) pg MCHC (32-36) g/dl RDW (11.5-14.0) % Plt Count (150-450) K/mm3 MPV (6-9.5) fl Segmented Neutrophils (36.-66.) % Lymphocytes (Manual) (24-44) % Monocytes (Manual) (0.0-12.0) % Eosinophils (Manual) (0.00-3.0) % Toxic Granulation Platelet Estimate (NORMAL) RBC Morphology PT (8.83-12.87) SECONDS INR (0.8-3.0) APTT (24.1-36.1) SECONDS Puncture Site RIGHT RADIAL pCO2 51 H (35-45) mmHg pO2 345 H* (75-100) mmHg Base Excess -4.0 L (-2.0-2.0) O2 Saturation 96.2 (94-100) g/dF ABG pH 7.26 L (7.35-7.45) ABG HCO3 22.9 (22-28) ABG O2 Sat (Measured) 99.3 (95-100) % Lloyd Test NO A-a Gradient 304 a/A Ratio 0.53 Hemoglobin 7.4 L* Carboxyhemoglobin 1.7 (0.0-6.9) % THgb Methemoglobin 1.4 (1.4-1.5) % Potassium 3.8 (3.5-5.1) Temperature 37.0 C POC O2 Flow Rate 100 % Vent Mode A/C Tidal Volume 650 cc PEEP 5 cmH2O Sodium (137-145) mmol/L Chloride (98-107) mmol/L Carbon Dioxide (22-30) mmol/L Anion Gap (5-15) MEQ/L BUN (9-20) mg/dL Creatinine (0.66-1.25) mg/dL Estimated GFR ML/MIN Glucose (74-106) mg/dL Lactic Acid (0.4-2.0) Calcium (8.4-10.2) mg/dL Magnesium (1.6-2.3) mg/dL Total Bilirubin (0.2-1.3) mg/dL AST (17-59) U/L ALT (0-50) U/L Alkaline Phosphatase (38-126) U/L Troponin I < 0.012 (0.000-0.034) ng/mL NT-Pro-B Natriuret Pep (0-900) pg/mL Serum Total Protein (6.3-8.2) g/dL Albumin (3.5-5.0) g/dL Amylase (30-110) U/L Lipase (23-300) U/L Urine Color JASMYN (YELLOW) Urine Appearance SLIGHTLY CLOUDY (CLEAR) Urine pH 6.0 (5-6) Ur Specific [place] 1.018 (1.005-1.025) Urine Protein 30 (Negative) Urine Ketones NEGATIVE (NEGATIVE) Urine Blood SMALL (0-5) Benito/ul Urine Nitrite NEGATIVE (NEGATIVE) Urine Bilirubin SMALL (NEGATIVE) Urine Urobilinogen 4 (0-1) mg/dL Ur Leukocyte Esterase NEGATIVE (NEGATIVE) Urine WBC (Auto) 6-10 (0-5) /HPF Urine RBC (Auto) NONE (0-2) /HPF U Epithel Cells (Auto) NONE (FEW) /HPF Urine Bacteria (Auto) NONE (NEGATIVE) /HPF Urine Culture Reflexed YES (NO) Urine Glucose NEGATIVE (NEGATIVE) mg/dL Influenza Type A Ag (NEGATIVE) Influenza Type B Ag (NEGATIVE) RSV (PCR) (Negative) 12/15/18 12/15/18 12/15/18 Range/Units 19:19 19:19 19:19 WBC 24.0 H (4.0-10.5) K/mm3 RBC 3.06 L (4.1-5.6) M/mm3 Hgb 10.0 L (12.5-18.0) gm/dl Hct 31.0 L (42-50) % MCV 101.3 H (78-100) fl MCH 32.6 H (26-32) pg MCHC 32.3 (32-36) g/dl RDW 15.1 H (11.5-14.0) % Plt Count 459 H (150-450) K/mm3 MPV 9.3 (6-9.5) fl Segmented Neutrophils 82 H (36.-66.) % Lymphocytes (Manual) 12 L (24-44) % Monocytes (Manual) 5 (0.0-12.0) % Eosinophils (Manual) 1 (0.00-3.0) % Toxic Granulation RARE Platelet Estimate NORMAL (NORMAL) RBC Morphology NORMAL PT 13.1 H (8.83-12.87) SECONDS INR 1.16 (0.8-3.0) APTT 25.5 (24.1-36.1) SECONDS Puncture Site pCO2 (35-45) mmHg pO2 (75-100) mmHg Base Excess (-2.0-2.0) O2 Saturation (94-100) g/dF ABG pH (7.35-7.45) ABG HCO3 (22-28) ABG O2 Sat (Measured) (95-100) % Lloyd Test A-a Gradient a/A Ratio Hemoglobin Carboxyhemoglobin (0.0-6.9) % THgb Methemoglobin (1.4-1.5) % Potassium 4.3 (3.5-5.1) Temperature C POC O2 Flow Rate % Vent Mode Tidal Volume cc PEEP cmH2O Sodium 136 L (137-145) mmol/L Chloride 98 (98-107) mmol/L Carbon Dioxide 27 (22-30) mmol/L Anion Gap 14.4 (5-15) MEQ/L BUN 31 H (9-20) mg/dL Creatinine 0.74 (0.66-1.25) mg/dL Estimated GFR > 60.0 ML/MIN Glucose 155 H (74-106) mg/dL Lactic Acid (0.4-2.0) Calcium 9.6 (8.4-10.2) mg/dL Magnesium 2.4 H (1.6-2.3) mg/dL Total Bilirubin 2.50 H (0.2-1.3) mg/dL AST 59 (17-59) U/L ALT 67 H (0-50) U/L Alkaline Phosphatase 275 H (38-126) U/L Troponin I (0.000-0.034) ng/mL NT-Pro-B Natriuret Pep 358 (0-900) pg/mL Serum Total Protein 7.6 (6.3-8.2) g/dL Albumin 3.2 L (3.5-5.0) g/dL Amylase 71 (30-110) U/L Lipase 12 L (23-300) U/L Urine Color (YELLOW) Urine Appearance (CLEAR) Urine pH (5-6) Ur Specific [place] (1.005-1.025) Urine Protein (Negative) Urine Ketones (NEGATIVE) Urine Blood (0-5) Benito/ul Urine Nitrite (NEGATIVE) Urine Bilirubin (NEGATIVE) Urine Urobilinogen (0-1) mg/dL Ur Leukocyte Esterase (NEGATIVE) Urine WBC (Auto) (0-5) /HPF Urine RBC (Auto) (0-2) /HPF U Epithel Cells (Auto) (FEW) /HPF Urine Bacteria (Auto) (NEGATIVE) /HPF Urine Culture Reflexed (NO) Urine Glucose (NEGATIVE) mg/dL Influenza Type A Ag (NEGATIVE) Influenza Type B Ag (NEGATIVE) RSV (PCR) (Negative) 12/15/18 12/15/18 12/15/18 Range/Units 19:15 18:56 17:59 WBC (4.0-10.5) K/mm3 RBC (4.1-5.6) M/mm3 Hgb (12.5-18.0) gm/dl Hct (42-50) % MCV (78-100) fl MCH (26-32) pg MCHC (32-36) g/dl RDW (11.5-14.0) % Plt Count (150-450) K/mm3 MPV (6-9.5) fl Segmented Neutrophils (36.-66.) % Lymphocytes (Manual) (24-44) % Monocytes (Manual) (0.0-12.0) % Eosinophils (Manual) (0.00-3.0) % Toxic Granulation Platelet Estimate (NORMAL) RBC Morphology PT (8.83-12.87) SECONDS INR (0.8-3.0) APTT (24.1-36.1) SECONDS Puncture Site LEFT RADIAL pCO2 66 H* (35-45) mmHg pO2 40 L* (75-100) mmHg Base Excess -0.8 (-2.0-2.0) O2 Saturation 64.4 L (94-100) g/dF ABG pH 7.23 L* (7.35-7.45) ABG HCO3 27.6 (22-28) ABG O2 Sat (Measured) 66.5 L (95-100) % Lloyd Test YES A-a Gradient 591 a/A Ratio 0.06 Hemoglobin 10.2 Carboxyhemoglobin 2.8 (0.0-6.9) % THgb Methemoglobin 0.4 L (1.4-1.5) % Potassium 4.2 (3.5-5.1) Temperature 37.0 C POC O2 Flow Rate 100 % Vent Mode Tidal Volume cc PEEP cmH2O Sodium (137-145) mmol/L Chloride (98-107) mmol/L Carbon Dioxide (22-30) mmol/L Anion Gap (5-15) MEQ/L BUN (9-20) mg/dL Creatinine (0.66-1.25) mg/dL Estimated GFR ML/MIN Glucose (74-106) mg/dL Lactic Acid 1.0 (0.4-2.0) Calcium (8.4-10.2) mg/dL Magnesium (1.6-2.3) mg/dL Total Bilirubin (0.2-1.3) mg/dL AST (17-59) U/L ALT (0-50) U/L Alkaline Phosphatase (38-126) U/L Troponin I < 0.012 (0.000-0.034) ng/mL NT-Pro-B Natriuret Pep (0-900) pg/mL Serum Total Protein (6.3-8.2) g/dL Albumin (3.5-5.0) g/dL Amylase (30-110) U/L Lipase (23-300) U/L Urine Color (YELLOW) Urine Appearance (CLEAR) Urine pH (5-6) Ur Specific [place] (1.005-1.025) Urine Protein (Negative) Urine Ketones (NEGATIVE) Urine Blood (0-5) Benito/ul Urine Nitrite (NEGATIVE) Urine Bilirubin (NEGATIVE) Urine Urobilinogen (0-1) mg/dL Ur Leukocyte Esterase (NEGATIVE) Urine WBC (Auto) (0-5) /HPF Urine RBC (Auto) (0-2) /HPF U Epithel Cells (Auto) (FEW) /HPF Urine Bacteria (Auto) (NEGATIVE) /HPF Urine Culture Reflexed (NO) Urine Glucose (NEGATIVE) mg/dL Influenza Type A Ag NEGATIVE (NEGATIVE) Influenza Type B Ag NEGATIVE (NEGATIVE) RSV (PCR) NEGATIVE (Negative) - Progress Progress: re-examined Progress Note: 12/15/18 19:40 Patient is hypotensive, so propofol drip will be stopped 12/15/18 20:16 Patient still has low blood pressure after turning off the propofol drip, so 1 liter 0.9NS IV bolus given 12/15/18 20:55 Patient still remaining hypotensive close to three liters of saline in place. 2 gm of Cefepime will be given and Levophed will be started to get MAP above 65 12/15/18 20:57 Hemoglobin down to 7 from 10 on recent ABG. 12/15/18 21:17 Patient's blood pressure improved significantly with 5mcg/kg/min of Levophed 12/15/18 21:57 Patient will be restarted on propofol drip to sedate him as he is awakening at a loss dose and continue on Levophed Blood Culture(s) Obtained: Yes Antibiotics given: Yes Discussed with Dr.: Other (@22:15, spoke with Dr Keating, Hospitalist at [facility] in [place], [place].) Counseled pt/family regarding: lab results, diagnosis, need for follow-up, rad results - Departure Departure Disposition: Transfer ([facility] ICU in [place], [place] to Dr Keating's service ) Clinical Impression: Acute respiratory failure with hypercapnia, Acute respiratory acidosis Hypotension Qualifiers: Hypotension type: unspecified hypotension type Qualified Code(s): I95.9 - Hypotension, unspecified Anemia Qualifiers: Anemia type: unspecified type Qualified Code(s): D64.9 - Anemia, unspecified Leukocytosis, unspecified Qualifiers: Leukocytosis type: unspecified Qualified Code(s): D72.829 - Elevated white blood cell count, unspecified Pneumonia of both lower lobes Qualifiers: Pneumonia type: due to unspecified organism Qualified Code(s): J18.1 - Lobar pneumonia, unspecified organism Condition: Serious Critical Care Time: Yes Critical Care Time(excluding separately billable procedures): Critical 75-104 mins Referrals: DIMAS TINEO MD [Primary Care Provider] -
[2018-12-15 19:20] LABS: Mean Cell Volume 101.3 fl (78-100); Mean Corpuscular Hgb Concent. 32.3 g/dl (32-36); Mean Platelet Volume 9.3 fl (6-9.5); Platelet Count 459 K/mm3 (150-450); Red Blood Count 3.06 M/mm3 (4.1-5.6); Red Cell Distribution Width 15.1 % (11.5-14.0)
[2018-12-15 19:21] LABS: Mean Corpuscular Hemoglobin 32.6 pg (26-32)
[2018-12-15 19:26] LABS: INR 1.16 (0.8-3.0); PROTIME 13.1 SECONDS (8.83-12.87)
[2018-12-15 19:29] LABS: PTT 25.5 SECONDS (24.1-36.1)
[2018-12-15] MEDS ORDERED: Propofol 1000 mg/100 ml Bottle 100 ML IV SCH (19:30)
[2018-12-15 19:40] LABS: ALBUMIN 3.2 g/dL (3.5-5.0); ALKALINE PHOSPHATASE 275 U/L (38-126); AMYLASE 71 U/L (30-110); ANION GAP 14.4 MEQ/L (5-15); BLOOD UREA NITROGEN 31 mg/dL (9-20); CHLORIDE 98 mmol/L (98-107); Calcium 9.6 mg/dL (8.4-10.2); Carbon Dioxide 27 mmol/L (22-30); Creatinine 1 0.74 mg/dL (0.66-1.25); Glucose 155 mg/dL (74-106); LIPASE 12 U/L (23-300); MAGNESIUM 2.4 mg/dL (1.6-2.3); NT PRO BNP 358 pg/mL (0-900); Potassium 4.3 mmol/L (3.5-5.1); SGOT/AST 59 U/L (17-59); SGPT/ALT 67 U/L (0-50); SODIUM 136 mmol/L (137-145); Total Protein 7.6 g/dL (6.3-8.2)
[2018-12-15] MEDS: Sodium Chloride 0.9% 1000 ML 1,000 ML IV STA ×2 (19:50→20:12)
[2018-12-15 20:03] LABS: Appearance SLIGHTLY CLOUDY (CLEAR); Bilirubin SMALL (NEGATIVE); Blood SMALL Ery/ul (0-5); Glucose NEGATIVE (NEGATIVE); Ketones NEGATIVE (NEGATIVE); Leukocyte Esterase NEGATIVE (NEGATIVE); Nitrite NEGATIVE (NEGATIVE); Protein,Urine Dip 30 (Negative); Specific Gravity 1.018 (1.005-1.025); Urobilinogen 4 mg/dL (0-1)
[2018-12-15] MEDS ORDERED: Sodium Chloride 0.9% 1000 ML 1,000 ML IV STA ×2 (20:09→20:15)
[2018-12-15 20:24] LABS: INFLUENZA A NEGATIVE (NEGATIVE); INFLUENZA B NEGATIVE (NEGATIVE); RESPIRATORY SYNCTIAL VIRUS NEGATIVE (Negative)
[2018-12-15 20:41] LABS: A-aADO2 304; ABG POTASSIUM 3.8 (3.5-5.1); ARTERIAL BLD GAS O2 SATURATION 99.3 % (95-100); ARTERIAL BLOOD GAS FIO2 100 %; ARTERIAL BLOOD GAS PCO2 51 mmHg (35-45); ARTERIAL BLOOD GAS PEEP 5 cmH2O; ARTERIAL BLOOD GAS PO2 345 mmHg (75-100); ARTERIAL BLOOD GAS VENT MODE A/C; ARTERIAL BLOOD GAS pH 7.26 (7.35-7.45); CARBOXYHEMOGLOBIN 1.7 % THgb (0.0-6.9); HCO3- 22.9 (22-28); HGB O2 SAT 96.2 g/dF (94-100); Methhemoglobin 1.4 % (1.4-1.5); paO2 pAO1 0.53
[2018-12-15 20:43] LABS: ABG HEMOGLOBIN 7.4; ABG SITE RIGHT RADIAL; ALLEN TEST OK? NO
[2018-12-15 20:43] LABS: Eosinophil 1 % (0.00-3.0); Lymphocytes 12 % (24-44); Monocyte 5 % (0.0-12.0); Neutrophils 82 % (36.-66.); Total Cells Counted 100
[2018-12-15 20:44] LABS: Platelet Estimate NORMAL (NORMAL)
[2018-12-15 20:45] LABS: Toxic Granulation RARE
[2018-12-15] MEDS ORDERED: Maxipime 2 GM IV ONE (20:53)
[2018-12-15] MEDS ORDERED: LEVOPHED 4 MG/4 ML 4,000 MCG in Dextrose 5%/Water IV Soln. 500 ML 500 ML IV PRN (20:54)
[2018-12-15] MEDS ORDERED: Ativan 2 MG/1 ML VIAL IV ONE (21:24)
[2018-12-15] MEDS ORDERED: Ativan 2 MG/1 ML VIAL ONE (21:26)
[2018-12-15] MEDS ORDERED: Maxipime 2 GM** 2 G in Dextrose 5%/Water IV Soln. 100ML PLUS BAG 100 ML IV ONE (21:45)
[2018-12-15 23:19] VITALS: O2SAT 78
[2018-12-16 01:48] VITALS: BP 112/62; PULSE 69
--- NOTE | 2018-12-16 08:52 | XRAY ---
Indication: Intubation. Comparison: December 05, 2018. Portable chest demonstrates new endotracheal tube tip approximately 12 cm above the marie. Remaining heart and lungs normal again with chronic right hemidiaphragm elevation.
--- NOTE | 2018-12-16 08:54 | XRAY ---
Indication: Endotracheal tube adjustment and new NG tube placement. Comparison: Taken early in the day. Portable chest demonstrates endotracheal tube tip now 6 cm above the marie. New NG tube traverses the chest with tip in the left upper quadrant abdomen, presumed stomach. Remaining heart and lungs normal again with chronic right hemidiaphragm elevation.
--- NOTE | 2018-12-16 09:02 | XRAY ---
Indication: Low hemoglobin. Multiple contiguous axial images obtained through the abdomen and pelvis using 80 cc Isovue 370 contrast only. Comparison: December 05, 2018. Lung bases demonstrates new patchy consolidating airspace opacities right greater than left. Worsening right base dependent atelectasis with stable tiny right effusion. Heart is not enlarged. Stable right hemidiaphragm elevation. New NG tube tip in the stomach lumen. Noncontrasted stomach and bowel loops again appear nonobstructed. New [place] catheter empties the urinary bladder. No free fluid/air. Stable tiny left renal cyst. Remaining liver, gallbladder, pancreas, spleen, adrenal glands, kidneys, ureters, and bladder appear unremarkable. There remains mild scattered aortoiliac calcifications. No AAA or pathologic retroperitoneal lymphadenopathy. Stable small bilateral fatty inguinal hernias. Impression: 1. New bibasilar patchy consolidating airspace disease and worsening right base dependent atelectasis. Rule out aspiration pneumonia. Stable tiny right effusion. 2. New [place] catheter and NG tube in situ. 3. Stable tiny left renal cyst and bilateral fatty inguinal hernias. Comment: Preliminary interpretation was made by [facility]. No critical discrepancy. CT DI 22.49
== END 2018-12-16 00:10 | disposition short-term general hospital (02) ==
LOC: ED 18:51
DX: J96.02 Acute respiratory failure with hypercapnia (principal); E87.2 Acidosis; D64.9 Anemia, unspecified; D72.829 Elevated white blood cell count, unspecified; J18.1 Lobar pneumonia, unspecified organism; Z72.0 Tobacco use; I50.9 Heart failure, unspecified; Z79.899 Other long term (current) drug therapy
CPT/HCPCS: 31500; 36000; 36415; 36600; 51702; 71045; 74177; 80053; 81001; 82150; 82375; 82803; 83605; 83690; 83735; 83880; 84484; 85025; 85610; 85730; 87040; 87077; 87086; 87186; 87631; 93005; 93041; 94770; 94799; 96365; 96367; 96374; 96375; 99285; 99291; 99292; J0692; J2060; J2704